=== PATIENT | female | born 1950 | race Caucasian/White ===

== ENCOUNTER 2020-09-04 14:18 | Inpatient (IN) | payer MEDICARE, OTHER, SELFPAY ==
[2020-09-04] VITALS (22 sets, daily range): BP systolic 54–162; BP diastolic 40–104; PULSE 72–153; RESP 18–30; TEMP 36.3–36.9; O2SAT 89–97; BMI 41.1; BMI 41.2
--- NOTE | 2020-09-04 14:38 | EKG12_ITS ---
Test Reason : PALPITATIONS/SOB Blood Pressure : / mmHG Vent. Rate : 141 BPM Atrial Rate : 315 BPM P-R Int : 000 ms QRS Dur : 076 ms QT Int : 246 ms P-R-T Axes : 263 043 077 degrees QTc Int : 376 ms Atrial flutter with variable A-V block Nonspecific ST abnormality Abnormal ECG Confirmed by ALLY HOLM, KASSIDY ([id number]), state editor ELLIOT LIMA ([id number]) on 09/11/2020 8:40:25 A M Referred By: YESENIA Confirmed By:LETICIA CANALES MD
--- NOTE | 2020-09-04 14:44 | ED.VIS.GEN ---
History of Present Illness Chief Complaint: Shortness of Breath Detail of Chief Complaint: Complications, dyspnea, OLSEN, orthopnea Informant: Patient Onset: Weeks - Onset 2 weeks ago while lying in bed Context: Sudden Onset Timing: Continuous Quality: Palpitations and respiratory symptoms Location: Cardiopulmonary Current Severity: Mild Maximum Severity: Moderate Worsened by: Activity Relieved by: Nothing Associated Symptoms: Previously documented Narrative: Patient is an elderly woman with history of atrial fibrillation/atrial flutter who is no longer on Xarelto. She was cardioverted in the past. Her paper spooler Dr. Gurvinder Mdaison. She states onset was 2 weeks ago while in bed. She did not come in because she was hoping that it would stop. She does report shortness of breath, dyspnea exertion orthopnea. She denies swelling of her feet or legs. She denies chest discomfort of any type. She denies headache, visual, ocular auditory symptoms. She denies rhinorrhea, congestion postnasal drainage sore throat. She denies abdominal pain, nausea, vomiting diarrhea. She denies black or maroon stool. She denies urologic symptoms. She denies neurologic symptoms. Prior similar symptoms: Yes Recent Illness/Hospitalization: No - Past Medical History (1) COPD (chronic obstructive pulmonary disease) with acute bronchitis Status: Acute (2) Tobacco dependence Status: Chronic Past Medical History - Allergies and Home Meds Allergies/Adverse Reactions: Allergies aspirin Allergy (Verified 09/04/20 14:21) Hives codeine Adverse Reaction (Verified 09/04/20 14:21) Nausea Primary Care Physician: Meena Garcia MD [Primary Care Provider] - Prior records reviewed: Yes Surgical History: - - Lumbar laminectomy Lives: Alone Smoking Status: Current every day smoker Alcohol: None Drugs: None - Family History Maternal Family History: Reports: Heart Disease - Cardiomyopathy Review of Systems General: Denies: Chills, Fever, Malaise, Sweats Eyes: Denies: Visual changes - bilaterally, Blurred Vision - bilaterally ENT: Denies: Rhinorrhea, Sore throat Cardiovascular: Reports: Palpitations, Heart racing. Denies: Chest pain Respiratory: Reports: Dyspnea, Dyspnea on exertion, Orthopnea. Denies: Cough, Sputum, Paroxysmal nocturnal dyspnea, -, - Gastrointestinal: Denies: Abdominal pain, Nausea, Vomiting, Diarrhea, Constipation, Melena, Hematochezia Musculoskeletal: Denies: Myalgias, Arthralgias, Neck pain, Back pain, Swelling, Extremity Pain, -, - Skin: Denies: Rash, Wounds Neurological: Denies: Headache, Weakness, Numbness Endocrine: Denies: Polyuria, Polydipsia Hematologic: Denies: Easy bruising, Easy bleeding Allergy: Denies: Uticaria, Swelling of the mouth Physical Exam Vital Signs/Narrative: Vital Signs Temp Pulse Resp BP Pulse Ox 09/04/20 14:42 96 09/04/20 14:19 97.3 F L 153 H 18 132/73 H 94 General: Well nourished, Well developed, Obese Head: Negative for: Normocephalic, Atraumatic Eyes: Perrl, EOMI. Negative for: Pale conjunctiva, Scleral icterus ENT: Moist mucous membranes, No rhinorrhea, TM's clear Neck: Supple, Nontender, No lymphadenopathy, No JVD Cardiovascular: No murmurs, Normal S1, Normal S2, Irregular, Tachycardia Respiratory: CTA bilaterally, Chest nontender, Diminished. Negative for: No distress Abdomen: Soft, Nontender, Nondistended, Normal bowel sounds Rectal: Deferred Back: Nontender, Normal Inspection Extremities: Nontender, No edema Skin: Normal color, No rash. Negative for: Cyanosis, Diaphoresis, Jaundice, No Trauma Neurological: Alert, Oriented x3, Cranial nerves II-XII grossly intact, Normal Strength, Normal Sensation Psychological: Normal affect Diagnostic/Tx/Re-eval Impressions Chest X-Ray 09/04/20 14:55 IMPRESSION: Mild degree of vascular congestion. Electronically Signed: Edwin Calvillo, at 15:13 EDT , Service support , 09/04/20 14:55 Chest 1 View (Portable) [RAD] Stat Laboratory Results 09/04/20 09/04/20 09/04/20 14:45 14:45 14:45 WBC 7.3 RBC 4.43 Hgb 13.2 Hct 43.5 MCV 98.2 MCH 29.8 MCHC 30.3 L RDW Std Deviation 56.6 H RDW Coeff of Stephanie 15.5 H Plt Count 292 MPV 9.8 Immature Gran % (Auto) 0.300 Neut % (Auto) 73.4 H Lymph % (Auto) 16.8 L [place] % (Auto) 7.2 Eos % (Auto) 1.7 Baso % (Auto) 0.6 Absolute Neuts (auto) 5.4 Absolute Lymphs (auto) 1.22 Nucleated RBC % 0 Differential Comment SCANNED Sodium 141 Potassium 4.3 Chloride 103 Carbon Dioxide 36.0 H Anion Gap 2 L BUN 19 H Creatinine 1.02 Estim Creat Clear Calc 46.22 Est GFR (MDRD) Af Amer 69 Est GFR (MDRD) Non-Af 57 L BUN/Creatinine Ratio 18.6 Glucose 109 H Calcium 9.8 Troponin I < 0.015 B-Natriuretic Peptide 175.5 H It was treated initially with Cardizem. Heart rate has decreased to the 130s. Additional dose of Cardizem was administered IV push and a drip was started. Hospitalist was paged. She did not receive diuretics since clinically she is not fluid overloaded. Suspect the heart failure is due to the A. fib with RVR. - EKG Initial EKG Interpretation: Atrial Flutter - Atrial flutter with variable AV block and a ventricular rate of 141. QS duration 76 ms. QT duration 246 ms. [place] is normal. There are an ossific ST-T wave changes in all likelihood due to heart rate. - Medical Decision Making With prior history of fibrillation will obtain appropriate blood work to assess electrolytes, H&H, troponin. EKG was obtained which confirmed patient is in atrial flutter/fib. There is no acute ischemic changes. Patient did receive Eliquis in the emergency department and IV Cardizem. She was not cardioverted since onset was 2 weeks ago. ED Disposition - Plan for ED Patient: Disposition: Acute Care Hospital [facility] Diagnosis: Atrial flutter with rapid ventricular response, Congestive heart failure (CHF) Referrals: Meena Garcia MD [Primary Care Provider] -
[2020-09-04] MEDS: dilTIAZem 25 MG/5 ML Vial 20 MG IV BOLUS (14:48)
--- NOTE | 2020-09-04 14:55 | RAD_ITS ---
STUDY: X-RAY CHEST REASON FOR EXAM: Female, 69 years old. dyspnea on exertion TECHNIQUE: Single AP portable view of the chest. COMPARISON: Comparison is made with prior examination dated 03/08/2015. FINDINGS: EKG electrodes are seen. Hyperinflation. Mild degree of vascular congestion. Scattered calcified granulomas. There is no demonstrated pleural abnormality. There is borderline cardiomegaly. Normal mediastinum and emily. Normal visualized pulmonary arteries. Normal visualized aortic arch and descending thoracic aorta. There are diffuse degenerative changes of the visualized thoracic spine. Normal visualized ribs, clavicles, and shoulders. There is no demonstrated abnormality of the visualized soft tissue structures of the upper abdomen. RAD/Chest 1 View (Portable) IMPRESSION: Mild degree of vascular congestion. Electronically Signed: Edwin Calvillo, at 15:13 EDT , Service support ,
[2020-09-04 15:07] LABS: Absolute Lymphocyte Count 1.22 X10^3/uL (0.83-4.51); Absolute Neutrophil Count 5.4 X10^3/uL (2.0-7.7); Basophil# 0.04 X10^3/uL; Basophil% 0.6 % (0-1); Eosinophil# 0.12 X10^3/uL; Eosinophils% 1.7 % (0-5); Hematocrit 43.5 % (37-47); Hemoglobin 13.2 g/dL (12.0-15.0); Lymphocyte # 1.22 X10^3/ul (4.0); Lymphocyte % 16.8 % (19-41); Mean Corp Hgb Conc 30.3 g/dL (32-36); Mean Corpuscular Hgb 29.8 pg (27.0-32.0); Mean Corpuscular Volume 98.2 fL (81-99); Mean Platelet Vol. 9.8 fl (6.2-12.0); Monocyte# 0.52 X10^3/uL; Monocyte% 7.2 % (0-10); NRBC Flagged by Analyzer 0 % (0-5); Neutrophil # 5.35 X10^3/uL (2.7-7.7); Neutrophil % 73.4 % (47-70); POSITIVE MORPHOLOGY YES; Platelet Count 292 K/mm3 (150-450); RBC Distribution Width CV 15.5 % (11.6-14.6); RBC Distribution Width SD 56.6 fl (35.1-43.9); Red Blood Count 4.43 M/mm3 (4.2-5.4); White Blood Count 7.3 K/mm3 (4.4-11.0)
[2020-09-04 15:15] LABS: Differential Indicated SCAN CRITERIA MET
[2020-09-04 15:29] LABS: Anion Gap 2 (5-15); BUN 19 mg/dL (7-18); BUN/Creat Ratio 18.6 RATIO (10-20); Calcium,Total 9.8 mg/dL (8.5-10.1); Chloride 103 mmol/L (98-107); Creatinine, Serum 1.02 mg/dL (0.55-1.02); EST Glomerular Filtration Rate 57 mL/min (>60); Est Glom Filt Rate - Afr Amer 69 mL/min (>60); Estimated Creatinine Clearance 46.22 ml/min; Glucose 109 mg/dL (74-106); Potassium 4.3 mmol/L (3.5-5.1); Sodium Level 141 mmol/L (136-145)
[2020-09-04 15:37] LABS: Differential Comment SCANNED
[2020-09-04] MEDS: APIXABAN 5 MG TABLET PO (15:37)
[2020-09-04 15:40] LABS: BNP,B-Type NATRIURETIC PEPTIDE 175.5 pg/mL (0-100)
--- NOTE | 2020-09-04 16:59 | PCM.HP.STD ---
<Lorena Sutton [employer] - Last Filed: 09/04/20 16:59> Problem List (1) Atrial flutter with rapid ventricular response Status: Acute (2) Congestive heart failure (CHF) Status: Acute (3) Asthma Status: Chronic (4) COPD (chronic obstructive pulmonary disease) with acute bronchitis Status: Chronic (5) Atrial flutter Status: Chronic (6) Tobacco dependence Status: Chronic (7) Type 2 diabetes mellitus Status: Chronic (8) Hyperlipidemia Status: Chronic History of Present Illness Date of Admission: 09/04/20 Chief Complaint: Palpitations, shortness of breath. The patient is a 69 year old F who presents to emergency room due to palpitations and shortness of breath. Patient reports this is been ongoing for 1-1/2 to 2 weeks intermittently however has worsened over the past week. Patient states she has a history of atrial flutter with cardioversion in 2014. To her knowledge, she has not had recurrence of a flutter since that time. She has not followed with cardiology as outpatient. She denies chest pain. Denies lower extremity swelling or weight gain. Patient states she has had significant stress in her life over the past 2 months. She also notes that she quit smoking 2 weeks ago following laser treatment. She has a past medical history of atrial flutter status post cardioversion, hypertension, hyperlipidemia, type 2 diabetes mellitus, CBP/asthma, tobacco dependence, obesity. Past Medical History Past Medical History (Chronic Problems): Chronic Problems Hyperlipidemia (Chronic) Type 2 diabetes mellitus (Chronic) Asthma (Chronic) COPD (chronic obstructive pulmonary disease) with acute bronchitis (Chronic) Atrial flutter (Chronic) Tobacco dependence (Chronic) Allergies aspirin Allergy (Verified 09/04/20 14:21) Hives codeine Adverse Reaction (Verified 09/04/20 14:21) Nausea Home Medications: Ambulatory Orders Medication Instructions Recorded Albuterol Inhaler [Ventolin Hfa] 1 - 2 puff INHALATION Q4H PRN PRN 03/10/15 #1 inhaler Ascorbic Acid [Fruit C-500] 1,000 mg PO DAILY 09/04/20 Atorvastatin Calcium [Lipitor] 20 mg PO QHS 09/04/20 Diltiazem CD [Cardizem CD] 240 mg PO DAILY 09/04/20 Lisinopril [Zestril] 5 mg PO DAILY 09/04/20 Metformin HCl [Metformin HCl ER] 500 mg PO DAILY 09/04/20 Surgical History: - - Lumbar laminectomy, hysterectomy Psychiatric History: No pertinent psych hx [employer]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 Denies: Chest Pain, Edema, Light Headedness, Syncope Respiratory: Reports: Shortness of Breath. Denies: Cough, Sputum production, Wheezing Gastrointestinal: Denies: Abdominal Pain, Nausea, Vomiting Genitourinary: Denies: Dysuria Musculoskeletal: Denies: Joint Pain, Joint Tenderness Skin: Denies: Rash, Wounds Neurological: Denies: Numbness, Tingling, Focal weakness Psychiatric: Denies: Anxiety, Depression, Homicidal Ideations, Suicidal Ideations Hematologic/ Lymphatic: Denies: Easy Bruising, Easy Bleeding VTE Information - Inpt Only VTE Present on Admission: No VTE Mechan Device Prophylaxis: None VTE Pharm Prophylaxis ordered?: Yes Patient Problems: Active and Suspected Problems Atrial flutter with rapid ventricular response (Acute) Congestive heart failure (CHF) (Acute) - Physical Exam Vitals/I&O's: Vital Signs Temp Pulse Resp BP Pulse Ox 97.3 F L 72 20 H 135/84 H 97 09/04/20 14:19 09/04/20 16:24 09/04/20 16:24 09/04/20 16:03 09/04/20 16:24 Oxygen Flow Rate (L/min) 2 Oxygen Delivery Method Room Air Weight: 240 lb Body Mass Index (BMI) 41.1 General: Alert, Oriented x3, Cooperative HEENT: Atraumatic, PERRLA, EOMI, Normocephalic Neck: Supple, No JVD, Negative Carotid Bruits Lungs: Diminished, Wheezes Cardiovascular: - - A flutter with RVR Abdomen: Bowel Sounds Present, Soft, Non Tender, Non-Distended, Obese Extremities: No clubbing, No cyanosis, No edema, Capillary Refill Less than 3 Seconds Skin: No rashes, No breakdown Musculoskeletal: No Tenderness to Palpation of Joints or Extremities Neurological: Cranial nerves II-XII grossly intact, Neuro grossly intact Psych/Mental Status: Normal Affect, Appropriate Laboratory Results 09/04/20 14:45: WBC 7.3, RBC 4.43, Hgb 13.2, Hct 43.5, MCV 98.2, MCH 29.8, MCHC 30.3 L, RDW Std Deviation 56.6 H, RDW Coeff of Stephanie 15.5 H, Plt Count 292, MPV 9.8, Immature Gran % (Auto) 0.300, Neut % (Auto) 73.4 H, Lymph % (Auto) 16.8 L, [place] % (Auto) 7.2, Eos % (Auto) 1.7, Baso % (Auto) 0.6, Absolute Neuts (auto) 5.4, Absolute Lymphs (auto) 1.22, Nucleated RBC % 0, Differential Comment SCANNED 09/04/20 14:45: Sodium 141, Potassium 4.3, Chloride 103, Carbon Dioxide 36.0 H, Anion Gap 2 L, BUN 19 H, Creatinine 1.02, Estim Creat Clear Calc 46.22, Est GFR (MDRD) Af Amer 69, Est GFR (MDRD) Non-Af 57 L, BUN/Creatinine Ratio 18.6, Glucose 109 H, Calcium 9.8, Troponin I < 0.015 09/04/20 14:45: B-Natriuretic Peptide 175.5 H Current Medications Diltiazem HCl 125 mg/ Dextrose 125 mls @ 5 mls/hr IV .Q25H KIAN; Protocol Assessment/Plan All Active Problems Atrial flutter with rapid ventricular response (Acute) Congestive heart failure (CHF) (Acute) 1. Atrial flutter with RVR-history of cardioversion February 2015. Cardizem drip initiated in ER. Previous notes report difficult rate control. Consult cardiology. Therapeutic Lovenox. Check TSH, mag. Obtain echocardiogram. Trend enzymes. 2. Mild acute CHF-secondary to #1. Chest x-ray with mild degree of vascular congestion. BNP 175. IV Lasix 20 mg twice daily. Obtain echo as noted above. 3. Hypertension-stable, continue lisinopril. 4. Hyperlipidemia-continue statin. 5. Type 2 diabetes mellitus-hold metformin. Check hemoglobin A1c. Accu-Cheks with sliding scale insulin. 6. COPD/asthma-no exacerbation. 7. Tobacco dependence-recently quit 2 weeks ago following laser treatment. Encouraged continued cessation. 8. Obesity-encouraged diet and lifestyle modifications. DVT prophylaxis-therapeutic Lovenox This patient was seen by RADHA Booth under the supervision of Dr. Amado. <AneudyLito E - Last Filed: 09/04/20 19:14> History of Present Illness The patient is a 69 year old F [] Past Medical History Allergies aspirin Allergy (Verified 09/04/20 14:21) Hives codeine Adverse Reaction (Verified 09/04/20 14:21) Nausea - Physical Exam Vitals/I&O's: Vital Signs Temp Pulse Resp BP Pulse Ox 97.8 F 96 22 H 110/58 L 92 09/04/20 18:00 09/04/20 19:01 09/04/20 19:01 09/04/20 19:01 09/04/20 19:01 Oxygen Flow Rate (L/min) 2 Oxygen Delivery Method Nasal Cannula Weight: 239 lb 13.807 oz Body Mass Index (BMI) 41.1 Intake and Output for Last 24 Hours 09/02/20 09/03/20 09/04/20 23:59 23:59 23:59 Intake Total 14. / 14.09 Balance 14. / 14.09 Laboratory Results 09/04/20 14:45: WBC 7.3, RBC 4.43, Hgb 13.2, Hct 43.5, MCV 98.2, MCH 29.8, MCHC 30.3 L, RDW Std Deviation 56.6 H, RDW Coeff of Stephanie 15.5 H, Plt Count 292, MPV 9.8, Immature Gran % (Auto) 0.300, Neut % (Auto) 73.4 H, Lymph % (Auto) 16.8 L, [place] % (Auto) 7.2, Eos % (Auto) 1.7, Baso % (Auto) 0.6, Absolute Neuts (auto) 5.4, Absolute Lymphs (auto) 1.22, Nucleated RBC % 0, Differential Comment SCANNED 09/04/20 14:45: Sodium 141, Potassium 4.3, Chloride 103, Carbon Dioxide 36.0 H, Anion Gap 2 L, BUN 19 H, Creatinine 1.02, Estim Creat Clear Calc 46.22, Est GFR (MDRD) Af Amer 69, Est GFR (MDRD) Non-Af 57 L, BUN/Creatinine Ratio 18.6, Glucose 109 H, Calcium 9.8, Troponin I < 0.015 09/04/20 14:45: B-Natriuretic Peptide 175.5 H 09/04/20 18:37: PT Pending, INR Pending 09/04/20 18:37: Magnesium Pending, Troponin I Pending, TSH Pending 09/04/20 18:37: Hemoglobin A1c Pending Current Medications Acetaminophen (Tylenol) 650 mg PO Q6H PRN PRN PRN Reason: Pain Score 1-10/Temp > 100.7 F Atorvastatin Calcium (Lipitor) 20 mg PO QHS KIAN Diltiazem HCl (Cardizem Cd) 240 mg PO DAILY [facility] Enoxaparin Sodium (Lovenox) 100 mg SC Q12@0600,1800 [facility] Last Admin: 09/04/20 18:56 Dose: 100 mg Documented by: Furosemide (Lasix) 20 mg IV BID@1000,1800 [facility] Last Admin: 09/04/20 18:56 Dose: 20 mg Documented by: Diltiazem HCl 125 mg/ Dextrose 125 mls @ 5 mls/hr IV .Q25H KIAN; Protocol Last Titration: 09/04/20 19:01 Dose: 10 mg/hr, 10 mls/hr Documented by: Insulin Human Lispro (Humalog Kwikpen (Bkc)) 0 unit SC ACHS [facility]; Protocol Lisinopril (Zestril) 5 mg PO DAILY [facility] Ondansetron HCl (Zofran) 4 mg IV Q8H PRN PRN PRN Reason: NAUSEA/VOMITING Senna/Docusate Sodium (Senokot-S, Shaye-Colace) 2 tablet PO BID PRN PRN PRN Reason: Constipation Sodium Chloride () 10 - 40 ml IV UD PRN PRN Reason: SALINE FLUSH Zolpidem Tartrate (Ambien (Generic)) 5 mg PO QHS PRN PRN PRN Reason: INSOMNIA Assessment/Plan Hospitalist note: I am seeing this patient in conjunction with Lorena Sutton. I independently seen and examined the patient. History and physical, laboratory data and imaging studies reviewed and I concur with above admission and treatment plan. Patient presented to the emergency room because of palpitation and shortness of breath. Her symptoms started in the last couple of weeks, has been intermittent, started with palpitation which is intermittent, has been getting worse over the past week, associated with exertional shortness of breath as well as occasional dizziness and without aggravating or relieving factors. She denies syncope or presyncope. She denies fever chills. History of atrial flutter back on 2014 status post cardioversion and she has been stable since then. In the emergency department, initial heart rate was in the 150s, received IV Cardizem bolus and heart rate keep fluctuating from 90s up to 150s. Possible stable, was afebrile, pulse ox was 94% on 2 L of oxygen. EKG revealed atrial flutter with RVR, no acute skin changes. Heart rate has been in the 150s on EKG. Troponin was negative. BNP was slightly rated at 175. Chest x-ray revealed minimal bilateral pulmonary vascular congestion. She is being admitted for atrial flutter with RVR and mild acute CHF. - Physical Exam General: Alert, Oriented x3, Cooperative, minimally short of breath. HEENT: Atraumatic, PERRLA, EOMI. Neck: Supple, No JVD, Negative Carotid Bruits, Trachea Midline, Thyroid Normal. Lungs: Decreased breath sounds at the bases, faint basilar crackles,No rhonchi, No wheeze. Cardiovascular: irregular rate and rhythm, Normal S1, Normal S2, PMI Normal, tachycardia. Abdomen: Bowel Sounds Present, Soft, Non Tender, Non-Distended, No Hepato-splenomegaly. Extremities: No clubbing, No cyanosis, No edema Skin: No rashes, No breakdown Neurological: Cranial nerves are intact, neuro grossly intact. Assessment and plan: #1 atrial flutter with RVR: In context of history of atrial flutter back in 2014, status post cardioversion. EKG reviewed, troponins negative chest x-ray reviewed. Patient received 1 dose of Eliquis in the ED. Plan: Mid to PCU, cardiac monitoring, serial cardiac enzymes, check TSH, serum magnesium, 2D echocardiogram, cardiology consult, continue IV Cardizem drip, start therapeutic Lovenox twice daily, repeat CBC and BMP tomorrow morning. #2 acute mild CHF: Due to a flutter with RVR. Chest x-ray reviewed. BNP slightly related. Plan: IV diuresis with Lasix, 2D echocardiogram, continue lisinopril. #3 other chronic medical problems: Stable, continue current medications as above. This note was generated with [employer] dictation software. It may contain incorrect words, spelling, and punctuation that were not noted in checking the note before signing. Inpatient E&M: [id number] Init Hosp L3
[2020-09-04] MEDS: dilTIAZem 25 MG/5 ML Vial IV BOLUS (17:01)
[2020-09-04] MEDS: Enoxaparin 100 MG/ML Syringe SC (18:56)
[2020-09-04] MEDS: Furosemide 20 MG/2 ML VIAL IV (18:56)
[2020-09-04 19:10] LABS: International Normalized Ratio 1.1; Prothrombin Time (Protime)PT. 13.8 SECONDS (11.7-14.9)
[2020-09-04 19:16] LABS: Hemoglobin A1c 5.8 % (3.8-5.6)
[2020-09-04 19:17] LABS: Magnesium 2.1 mg/dL (1.6-2.6)
[2020-09-04] MEDS: Atorvastatin Calcium 20 MG Tablet PO (21:16)
[2020-09-04 21:25] LABS: Bedside Glucose 141 mg/dL (70-110)
[2020-09-04] MEDS: Albuterol 2.5 MG/3 ML VIAL.NEB. INHALATION (21:45)
[2020-09-05] VITALS (46 sets, daily range): BP systolic 99–152; BP diastolic 51–122; PULSE 66–128; RESP 16–28; TEMP 36.4–36.9; O2SAT 86–99
[2020-09-05] MEDS: Enoxaparin 100 MG/ML Syringe SC (05:02)
[2020-09-05 06:54] LABS: Absolute Lymphocyte Count 1.32 X10^3/uL (0.83-4.51); Basophil# 0.03 X10^3/uL; Basophil% 0.6 % (0-1); Eosinophil# 0.11 X10^3/uL; Eosinophils% 2.2 % (0-5); Hemoglobin 12.8 g/dL (12.0-15.0); Lymphocyte # 1.32 X10^3/ul (4.0); Mean Corp Hgb Conc 29.8 g/dL (32-36); Mean Corpuscular Volume 100.7 fL (81-99); Mean Platelet Vol. 10.1 fl (6.2-12.0); Monocyte# 0.42 X10^3/uL; Monocyte% 8.6 % (0-10); NRBC Flagged by Analyzer 0 % (0-5); Neutrophil % 61.4 % (47-70); Platelet Count 253 K/mm3 (150-450); RBC Distribution Width CV 15.7 % (11.6-14.6); RBC Distribution Width SD 58.3 fl (35.1-43.9); Red Blood Count 4.27 M/mm3 (4.2-5.4); White Blood Count 4.9 K/mm3 (4.4-11.0)
[2020-09-05 07:35] LABS: Anion Gap 1 (5-15); BUN 23 mg/dL (7-18); BUN/Creat Ratio 23.4 RATIO (10-20); Calcium,Total 9.3 mg/dL (8.5-10.1); Chloride 103 mmol/L (98-107); Creatinine, Serum 0.98 mg/dL (0.55-1.02); EST Glomerular Filtration Rate 60 mL/min (>60); Est Glom Filt Rate - Afr Amer 72 mL/min (>60); Glucose 103 mg/dL (74-106); Potassium 4.3 mmol/L (3.5-5.1); Sodium Level 140 mmol/L (136-145)
[2020-09-05 07:42] LABS: Bedside Glucose 102 mg/dL (70-110)
[2020-09-05 08:28] LABS: Free T3 2.4 pg/mL (2.18-3.98); T4 Free Direct 0.83 ng/dL (0.76-1.46)
[2020-09-05] MEDS: Lisinopril 5 MG Tablet PO (09:09)
[2020-09-05] MEDS: Furosemide 40 MG/4 ML Vial IV ×2 (09:09→18:22)
[2020-09-05] MEDS: dilTIAZem CD 240 MG Capsule PO (09:09)
[2020-09-05] MEDS: 0.9% Saline Lock 10 ML Syringe IV ×5 (09:09→20:41)
--- NOTE | 2020-09-05 10:15 | CASEMGMT ---
RN BENNY Face to Face with patient for initial transition planning/care coordination assessment. RN CM introduced self and role at [facility]. Patient lying in bed, alert and oriented. Patient willing to participate in assessment and is able to answer all questions appropriately. Care providers, pharmacy, and demographics verified. Patient wishes to discharge home, denies need for home health at this time. Patient states she has no further needs or concerns at this time. CM to follow for discharge planning needs that may arise. 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 Patient states she is independent at home. Transportation: self/sisters/ DME/HHC: Patient states she has nebulizer and oxygen with portability at home 2lpm at and ambulation through [employer]. Will monitor if patient requires additional oxygen at discharge. Disposition Plan: Patient to discharge home with family support and follow-up plans in place. Emma DOCKERY, RN, CM
[2020-09-05 11:30] LABS: Bedside Glucose 149 mg/dL (70-110)
--- NOTE | 2020-09-05 12:14 | PN_ITS ---
<HermanLorena INVESTIGATION OFFICER - Last Filed: 09/05/20 12:32> Patient Problems: Active and Suspected Problems Atrial flutter with rapid ventricular response (Acute) Congestive heart failure (CHF) (Acute) Subjective: Patient seen and examined. Reports breathing and palpitations are improved. Denies chest pain. Wheezing on exam. Initiated on IV steroids. - Physical Exam Vitals/I&O's: Vital Signs Temp Pulse Resp BP Pulse Ox 97.6 F L 128 H 21 H 114/61 97 09/05/20 12:00 09/05/20 12:05 09/05/20 12:00 09/05/20 12:00 09/05/20 12:00 Oxygen Flow Rate (L/min) 5 Oxygen Delivery Method Nasal Cannula Weight: 240 lb 11.916 oz Body Mass Index (BMI) 41.1 Intake and Output for Last 24 Hours 09/03/20 09/04/20 09/05/20 23:59 23:59 23:59 Intake Total 253.92 / 263.92 556.00 / 556.00 Output Total 0 / 0 Balance 253.92 / 263.92 556.00 / 556.00 General: Alert, Oriented x3, Cooperative HEENT: Atraumatic, PERRLA, EOMI, Normocephalic Neck: Supple, No JVD, Negative Carotid Bruits Lungs: Clear to auscultation, Normal air movement Cardiovascular: - - a. flutter, RVR Abdomen: Bowel Sounds Present, Soft, Non Tender Extremities: No clubbing, No cyanosis, No edema, Capillary Refill Less than 3 Seconds Skin: No rashes, No breakdown Musculoskeletal: No Tenderness to Palpation of Joints or Extremities Neurological: Cranial nerves II-XII grossly intact, Neuro grossly intact Psych/Mental Status: Normal Affect, Appropriate Laboratory Results 09/04/20 14:45: WBC 7.3, RBC 4.43, Hgb 13.2, Hct 43.5, MCV 98.2, MCH 29.8, MCHC 30.3 L, RDW Std Deviation 56.6 H, RDW Coeff of Stephanie 15.5 H, Plt Count 292, MPV 9.8, Immature Gran % (Auto) 0.300, Neut % (Auto) 73.4 H, Lymph % (Auto) 16.8 L, Gallia % (Auto) 7.2, Eos % (Auto) 1.7, Baso % (Auto) 0.6, Absolute Neuts (auto) 5.4, Absolute Lymphs (auto) 1.22, Nucleated RBC % 0, Differential Comment SCANNED 09/04/20 14:45: Sodium 141, Potassium 4.3, Chloride 103, Carbon Dioxide 36.0 H, Anion Gap 2 L, BUN 19 H, Creatinine 1.02, Estim Creat Clear Calc 46.22, Est GFR (MDRD) Af Amer 69, Est GFR (MDRD) Non-Af 57 L, BUN/Creatinine Ratio 18.6, Glu cose 109 H, Calcium 9.8, Troponin I < 0.015 09/04/20 14:45: B-Natriuretic Peptide 175.5 H 09/04/20 18:37: PT 13.8, INR 1.1 09/04/20 18:37: Magnesium 2.1, Troponin I < 0.015, TSH 0.30 L 09/04/20 18:37: Hemoglobin A1c 5.8 H 09/04/20 21:22: POC Glucose 141 H 09/04/20 21:31: Troponin I < 0.015 09/05/20 05:55: WBC 4.9, RBC 4.27, Hgb 12.8, Hct 43.0, MCV 100.7 H, MCH 30.0, MCHC 29.8 L, RDW Std Deviation 58.3 H, RDW Coeff of Stephanie 15.7 H, Plt Count 253, MPV 10.1, Immature Gran % (Auto) 0.200, Neut % (Auto) 61.4, Lymph % (Auto) 27.0, Gallia % (Auto) 8.6, Eos % (Auto) 2.2, Baso % (Auto) 0.6, Absolute Neuts (auto) 3.0, Absolute Lymphs (auto) 1.32, Nucleated RBC % 0 09/05/20 05:55: Sodium 140, Potassium 4.3, Chloride 103, Carbon Dioxide 36.0 H, Anion Gap 1 L, BUN 23 H, Creatinine 0.98, Estim Creat Clear Calc 48.10, Est GFR (MDRD) Af Amer 72, Est GFR (MDRD) Non-Af 60, BUN/Creatinine Ratio 23.4 H, Glucose 103, Calcium 9.3 09/05/20 05:55: Free T4 0.83, Free T3 pg/dL 2.4 09/05/20 06:57: POC Glucose 102 09/05/20 10:54: POC Glucose 149 H Current Medications Acetaminophen (Tylenol) 650 mg PO Q6H PRN PRN PRN Reason: Pain Score 1-10/Temp > 100.7 F Albuterol Sulfate (Ventolin Aerosols) 2.5 mg INHALATION Q4H.RT PRN PRN Reason: SOB &/OR WHEEZING Last Admin: 09/04/20 21:45 Dose: 2.5 mg Documented by: Atorvastatin Calcium (Lipitor) 20 mg PO QHS [facility] Last Admin: 09/04/20 21:16 Dose: 20 mg Documented by: Diltiazem HCl (Cardizem Cd) 240 mg PO DAILY [facility] Last Admin: 09/05/20 09:09 Dose: 240 mg Documented by: Enoxaparin Sodium (Lovenox) 100 mg SC Q12@0600,1800 [facility] Last Admin: 09/05/20 05:02 Dose: 100 mg Documented by: Furosemide (Furosemide 40 Mg/4 Ml Vial) 40 mg IV BID@1000,1800 [facility] Last Admin: 09/05/20 09:09 Dose: 40 mg Documented by: Diltiazem HCl 125 mg/ Dextrose 125 mls @ 5 mls/hr IV .Q25H [facility]; Protocol Last Titration: 09/05/20 12:12 Dose: Infused Documented by: Insulin Human Lispro (Humalog Kwikpen (Bkc)) 0 unit SC ACHS [facility]; Protocol Last Admin: 09/05/20 10:56 Dose: Not Given Documented by: Lisinopril (Zestril) 5 mg PO DAILY [facility] Last Admin: 09/05/20 09:09 Dose: 5 mg Documented by: Methylprednisolone (Methylprednisolone 40 Mg/Ml Vial) 40 mg IV Q8H [facility] Last Admin: 09/05/20 11:56 Dose: 40 mg Documented by: Ondansetron HCl (Zofran) 4 mg IV Q8H PRN PRN PRN Reason: NAUSEA/VOMITING Senna/Docusate Sodium (Senokot-S, Shaye-Colace) 2 tablet PO BID PRN PRN PRN Reason: Constipation Sodium Chloride () 10 - 40 ml IV UD PRN PRN Reason: SALINE FLUSH Last Admin: 09/05/20 11:56 Dose: 10 ml Documented by: Zolpidem Tartrate (Ambien (Generic)) 5 mg PO QHS PRN PRN PRN Reason: INSOMNIA Medical Necessity - Tobacco Use Smoking Status: Former smoker Tobacco Use: Cigarettes Assessment/Plan All Active Problems Atrial flutter with rapid ventricular response (Acute) Congestive heart failure (CHF) (Acute) 1. Atrial flutter with RVR-history of cardioversion February 2015. Continue Cardizem drip. Cardiology consult. Therapeutic Lovenox. TSH, mag normal. Echocardiogram pending. 2. Mild acute CHF-secondary to #1. Chest x-ray with mild degree of vascular congestion. BNP 175. IV Lasix 40 mg twice daily. Echo ordered as noted above. 3. Chronic COPD/asthma with exacerbation-significant wheezing on assessment. Pulmonary medicine consulted to establish for outpatient follow-up. IV Solu- Medrol. DuoNeb aerosols. 4. Acute hypoxic respiratory insufficiency-secondary to #2/#3-treatment per above. Continue supplement oxygen to maintain O2 sat above 90%. Walking pulse ox prior to discharge. 5. Hypertension-stable, continue lisinopril. 6. Hyperlipidemia-continue statin. 7. Type 2 diabetes mellitus-hold metformin. Hemoglobin A1c 5.8%. Accu-Cheks with sliding scale insulin. 8. Tobacco dependence-recently quit 2 weeks ago following laser treatment. En couraged continued cessation. 9. Obesity-encouraged diet and lifestyle modifications. DVT prophylaxis-therapeutic Lovenox This patient was seen by RADHA Booth under the supervision of Dr. Delgadillo. <Beata Delgadillo - Last Filed: 09/05/20 12:49> - Physical Exam Vitals/I&O's: Vital Signs Temp Pulse Resp BP Pulse Ox 97.6 F L 128 H 21 H 114/61 97 09/05/20 12:00 09/05/20 12:05 09/05/20 12:00 09/05/20 12:00 09/05/20 12:00 Oxygen Flow Rate (L/min) 5 Oxygen Delivery Method Nasal Cannula Weight: 109.2 kg Body Mass Index (BMI) 41.1 Intake and Output for Last 24 Hours 09/03/20 09/04/20 09/05/20 23:59 23:59 23:59 Intake Total 253.92 / 263.92 556.00 / 556.00 Output Total 0 / 0 Balance 253.92 / 263.92 556.00 / 556.00 Laboratory Results 09/04/20 14:45: WBC 7.3, RBC 4.43, Hgb 13.2, Hct 43.5, MCV 98.2, MCH 29.8, MCHC 30.3 L, RDW Std Deviation 56.6 H, RDW Coeff of Stephanie 15.5 H, Plt Count 292, MPV 9.8, Immature Gran % (Auto) 0.300, Neut % (Auto) 73.4 H, Lymph % (Auto) 16.8 L, Gallia % (Auto) 7.2, Eos % (Auto) 1.7, Baso % (Auto) 0.6, Absolute Neuts (auto) 5.4, Absolute Lymphs (auto) 1.22, Nucleated RBC % 0, Differential Comment SCANNED 09/04/20 14:45: Sodium 141, Potassium 4.3, Chloride 103, Carbon Dioxide 36.0 H, Anion Gap 2 L, BUN 19 H, Creatinine 1.02, Estim Creat Clear Calc 46.22, Est GFR (MDRD) Af Amer 69, Est GFR (MDRD) Non-Af 57 L, BUN/Creatinine Ratio 18.6, Glucose 109 H, Calcium 9.8, Troponin I < 0.015 09/04/20 14:45: B-Natriuretic Peptide 175.5 H 09/04/20 18:37: PT 13.8, INR 1.1 09/04/20 18:37: Magnesium 2.1, Troponin I < 0.015, TSH 0.30 L 09/04/20 18:37: Hemoglobin A1c 5.8 H 09/04/20 21:22: POC Glucose 141 H 09/04/20 21:31: Troponin I < 0.015 09/05/20 05:55: WBC 4.9, RBC 4.27, Hgb 12.8, Hct 43.0, MCV 100.7 H, MCH 30.0, MCHC 29.8 L, RDW Std Deviation 58.3 H, RDW Coeff of Stephanie 15.7 H, Plt Count 253, MPV 10.1, Immature Gran % (Auto) 0.200, Neut % (Auto) 61.4, Lymph % (Auto) 27.0, Gallia % (Auto) 8.6, Eos % (Auto) 2.2, Baso % (Auto) 0.6, Absolute Neuts (auto) 3.0, Absolute Lymphs (auto) 1.32, Nucleated RBC % 0 09/05/20 05:55: Sodium 140, Potassium 4.3, Chloride 103, Carbon Dioxide 36.0 H, Anion Gap 1 L, BUN 23 H, Creatinine 0.98, Estim Creat Clear Calc 48.10, Est GFR (MDRD) Af Amer 72, Est GFR (MDRD) Non-Af 60, BUN/Creatinine Ratio 23.4 H, Glucose 103, Calcium 9.3 09/05/20 05:55: Free T4 0.83, Free T3 pg/dL 2.4 09/05/20 06:57: POC Glucose 102 09/05/20 10:54: POC Glucose 149 H Current Medications Acetaminophen (Tylenol) 650 mg PO Q6H PRN PRN PRN Reason: Pain Score 1-10/Temp > 100.7 F Albuterol Sulfate (Ventolin Aerosols) 2.5 mg INHALATION Q4H.RT PRN PRN Reason: SOB &/OR WHEEZING Last Admin: 09/04/20 21:45 Dose: 2.5 mg Documented by: Albuterol/Ipratropium (Ipratropium/Albuterol Sulfate 3 Ml Ampul.Neb) 3 ml INHALATION Q4HWA.RT IKAN Atorvastatin Calcium (Lipitor) 20 mg PO QHS [facility] Last Admin: 09/04/20 21:16 Dose: 20 mg Documented by: Diltiazem HCl (Cardizem Cd) 240 mg PO DAILY [facility] Last Admin: 09/05/20 09:09 Dose: 240 mg Documented by: Enoxaparin Sodium (Lovenox) 100 mg SC Q12@0600,1800 [facility] Last Admin: 09/05/20 05:02 Dose: 100 mg Documented by: Furosemide (Furosemide 40 Mg/4 Ml Vial) 40 mg IV BID@1000,1800 [facility] Last Admin: 09/05/20 09:09 Dose: 40 mg Documented by: Diltiazem HCl 125 mg/ Dextrose 125 mls @ 5 mls/hr IV .Q25H [facility]; Protocol Last Admin: 09/05/20 12:13 Dose: 15 mg/hr, 15 mls/hr Documented by: Insulin Human Lispro (Humalog Kwikpen (Bkc)) 0 unit SC ACHS [facility]; Protocol Last Admin: 09/05/20 10:56 Dose: Not Given Documented by: Lisinopril (Zestril) 5 mg PO DAILY [facility] Last Admin: 09/05/20 09:09 Dose: 5 mg Documented by: Methylprednisolone (Methylprednisolone 40 Mg/Ml Vial) 40 mg IV Q8H [facility] Last Admin: 09/05/20 11:56 Dose: 40 mg Documented by: Ondansetron HCl (Zofran) 4 mg IV Q8H PRN PRN PRN Reason: NAUSEA/VOMITING Senna/Docusate Sodium (Senokot-S, Shaye-Colace) 2 tablet PO BID PRN PRN PRN Reason: Constipation Sodium Chloride () 10 - 40 ml IV UD PRN PRN Reason: SALINE FLUSH Last Admin: 09/05/20 11:56 Dose: 10 ml Documented by: Zolpidem Tartrate (Ambien (Generic)) 5 mg PO QHS PRN PRN PRN Reason: INSOMNIA Assessment/Plan This patient was seen in conjunction with Lorena Sutton INVESTIGATION OFFICER. I have independently interviewed and examined the patient and reviewed pertinent historical, laboratory, and other data. Please refer to her note for patient's presentation, findings, and recommendations. Patient was seen and examined. She is short of breath on ambulation. Heart rate is uncontrolled. Fluctuating a lot. Patient stated that she is usually on 2 L of oxygen at rest and 5 L of oxygen on ambulation. Denied any chest pain or dizziness or palpitations. She stated she feels improved compared to when she came in. No acute events overnight. She has no scrip clerk. She lives in [place]. She is interested in getting a new PCP as well as possibly establishing with a scrip clerk here in [place]. She stated that her issue is with transport from [place] to [place] and is hoping that her appointments will not be every 3 months. Vitals were reviewed -stable Physical Exam: Gen: Mildly dyspneic, not pale, not jaundiced, alert oriented x3, on 5 L of oxygen CVS:HS I +II, regular, no murmurs RESP: Decreased air entry, audible and expiratory wheezes GI: BS present and normal, nontender, no palpable organs EXT: Bilateral pedal edema +1 Labs reviewed: ASSESSMENT: 1. A flutter with RVR 2. Acute CHF exacerbation, 2D echo pending 3. Acute COPD exacerbation 4. Hypertension 5. Type II DM 6. Nicotine dependence, advised to quit 7. Morbid obesity Meds reviewed Plan: Continue with Cardizem drip as well as Cardizem bridging Await cardiology evaluation Continue with Lasix 40 mg IV twice daily Start IV Solu-Medrol Pulmonology consult Discontinue albuterol and DuoNeb account of tachycardia Continue on ipratropium scheduled inhalation Increase insulin sliding scale to medium dose scale to account for blood glucose exacerbations whilst on steroids Inpatient E&M: 12460 [facility]
--- NOTE | 2020-09-05 15:10 | PCM.CONS.PUL ---
Problem List (1) Hyperlipidemia Status: Chronic (2) Type 2 diabetes mellitus Status: Chronic (3) Atrial flutter with rapid ventricular response Status: Acute (4) Congestive heart failure (CHF) Status: Acute (5) Asthma Status: Chronic (6) COPD (chronic obstructive pulmonary disease) with acute bronchitis Status: Chronic (7) Atrial flutter Status: Chronic (8) Tobacco dependence Status: Chronic Reason for Consult Date of Consultation: 09/05/20 Reason for Consultation: Hypoxia History of Present Illness: The patient is a 69 year old F, with past medical history listed below, who presented [facility] on 09/04/2020 secondary to progressive shortness of breath. Patient does have a history of A. fib/flutter that was treated with Xarelto in the past, but had a cardioversion in 2014. Patient states that approximately 2 weeks ago she woke up from sleep feeling short of breath and has been that way since I came here. Patient had not reported any lower extremity swelling or chest discomfort. No headache or focal neurologic deficits have been noted. Patient had noted a cough productive of clear to white sputum, but states this was typical for her. Patient not reported any nausea, vomiting, diarrhea, melena or hematochezia. No neurologic symptoms are reported. In the ER, patient was noted to be tachycardic at 153 bpm and chest x-ray showed a mild degree of vascular congestion. Laboratory work-up was relatively unremarkable with a WBC count of 7.3 and a hemoglobin of 13.2. Patient did have an elevated bicarbonate at 36 with a creatinine of 1. Troponin was negative and BNP was slightly elevated at 175. Patient was initially treated with Cardizem with improvement in heart rate. EKG confirmed a flutter with a 2-1 block. Patient was given Eliquis and started on an IV infusion and admitted to the hospital. Patient has received diuretic therapy and feels subjectively improved since admission. Patient remains on a Cardizem drip with marginal control with heart rates in the 90s to low 100s. Patient feels that her cough has improved. Patient does not report any lower extremity edema. Patient does state that she has been very stressed over the last 2 to 3 months for personal reasons. Patient states that she wakes up at night gasping for breath and hearing my heartbeat in my ear. Patient states she has been admitted previously at an outside facility and thought that CPAP made a big difference. Patient does not have a diagnosis of sleep apnea and is never had a sleep apnea test before to her knowledge. Patient does report that she has had a cardioversion previously for A. fib, but thought it had resolved. Patient does reportedly snore at baseline. Patient does not use bronchodilators at baseline extensively. Patient states she has had a spirometry in the past, but is unaware of the results. She thinks this was done at [facility]. Patient does report that she is been on oxygen in the past. Patient states she was admitted to the hospital and sent home and my saturations are typically in the low 90s on 2 L. Review of systems otherwise negative from a constitutional, HEENT, respiratory, cardiovascular, GI, genitourinary, musculoskeletal, skin, neurologic, psychiatric and hematologic system unless stated above. Past Medical History Past Medical History (Chronic Problems): Chronic Problems Hyperlipidemia (Chronic) Type 2 diabetes mellitus (Chronic) Asthma (Chronic) COPD (chronic obstructive pulmonary disease) with acute bronchitis (Chronic) Atrial flutter (Chronic) Tobacco dependence (Chronic) Allergies aspirin Allergy (Verified 09/04/20 14:21) Hives codeine Adverse Reaction (Verified 09/04/20 14:21) Nausea Home Medications: Ambulatory Orders Medication Instructions Recorded Albuterol Inhaler [Ventolin Hfa] 1 - 2 puff INHALATION Q4H PRN PRN 03/10/15 #1 inhaler Ascorbic Acid [Fruit C-500] 1,000 mg PO DAILY 09/04/20 Atorvastatin Calcium [Lipitor] 20 mg PO QHS 09/04/20 Diltiazem CD [Cardizem CD] 240 mg PO DAILY 09/04/20 Lisinopril [Zestril] 5 mg PO DAILY 09/04/20 Metformin HCl [Metformin HCl ER] 500 mg PO DAILY 09/04/20 Surgical History: - - Lumbar laminectomy, hysterectomy Psychiatric History: No 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 Patient does not have an extensive imaging history, but chest x-ray does show increased congestion with cephalization on presentation. Echocardiogram shows preserved ejection fraction. Patient does have left atrial enlargement and elevated pulmonary artery pressures. - Physical Exam Vitals/I&O's: Vital Signs Temp Pulse Resp BP Pulse Ox 36.4 C L 91 18 113/63 92 09/05/20 12:00 09/05/20 14:00 09/05/20 14:00 09/05/20 14:00 09/05/20 14:00 Oxygen Flow Rate (L/min) 5 Oxygen Delivery Method Nasal Cannula Weight: 109.2 kg Body Mass Index (BMI) 41.1 Intake and Output for Last 24 Hours 09/03/20 09/04/20 09/05/20 23:59 23:59 23:59 Intake Total 253.92 / 263.92 582.75 / 582.75 Output Total 0 / 0 Balance 253.92 / 263.92 582.75 / 582.75 General: Alert, Oriented x3, Cooperative, No apparent distress, Well developed, Well nourished, - - Morbidly obese. Speaking in full sentences. HEENT: Atraumatic, PERRLA, EOMI, Normocephalic, - - No scleral icterus or injection noted Oral: Moist Mucosa, No Gingival or Mucosal Lesions/ Ulcerations, - - Crowded posterior pharynx. Neck: Supple, No Nodes, Trachea Midline, - - JVD difficult to assess secondary to body habitus. Lungs: No rhonchi, No rales, Diminished, Wheezes, - - Symmetric expansion. Cardiovascular: Normal S1, Normal S2, No murmurs, Irregular Rate, No rub noted, No Gallop, - - A flutter noted on telemetry Abdomen: Bowel Sounds Present, Soft, Non Tender, Non-Distended, Obese Extremities: No cyanosis, No edema, Capillary Refill Less than 3 Seconds, Clubbing Skin: No rashes, No breakdown Musculoskeletal: No Tenderness to Palpation of Joints or Extremities Lymphatic: No Cervical, Supraclavicular, or Inguinal Adenopathy Neurological: Cranial nerves II-XII grossly intact, Neuro grossly intact, Motor Exam 5/5 strength throughout Psych/Mental Status: Alert and oriented to time, place, person, mood and affect Laboratory Results 09/04/20 14:45: WBC 7.3, RBC 4.43, Hgb 13.2, Hct 43.5, MCV 98.2, MCH 29.8, MCHC 30.3 L, RDW Std Deviation 56.6 H, RDW Coeff of Stephanie 15.5 H, Plt Count 292, MPV 9.8, Immature Gran % (Auto) 0.300, Neut % (Auto) 73.4 H, Lymph % (Auto) 16.8 L, [place] % (Auto) 7.2, Eos % (Auto) 1.7, Baso % (Auto) 0.6, Absolute Neuts (auto) 5.4, Absolute Lymphs (auto) 1.22, Nucleated RBC % 0, Differential Comment SCANNED 09/04/20 14:45: Sodium 141, Potassium 4.3, Chloride 103, Carbon Dioxide 36.0 H, Anion Gap 2 L, BUN 19 H, Creatinine 1.02, Estim Creat Clear Calc 46.22, Est GFR (MDRD) Af Amer 69, Est GFR (MDRD) Non-Af 57 L, BUN/Creatinine Ratio 18.6, Glucose 109 H, Calcium 9.8, Troponin I < 0.015 09/04/20 14:45: B-Natriuretic Peptide 175.5 H 09/04/20 18:37: PT 13.8, INR 1.1 09/04/20 18:37: Magnesium 2.1, Troponin I < 0.015, TSH 0.30 L 09/04/20 18:37: Hemoglobin A1c 5.8 H 09/04/20 21:22: POC Glucose 141 H 09/04/20 21:31: Troponin I < 0.015 09/05/20 05:55: WBC 4.9, RBC 4.27, Hgb 12.8, Hct 43.0, MCV 100.7 H, MCH 30.0, MCHC 29.8 L, RDW Std Deviation 58.3 H, RDW Coeff of Stephanie 15.7 H, Plt Count 253, MPV 10.1, Immature Gran % (Auto) 0.200, Neut % (Auto) 61.4, Lymph % (Auto) 27.0, [place] % (Auto) 8.6, Eos % (Auto) 2.2, Baso % (Auto) 0.6, Absolute Neuts (auto) 3.0, Absolute Lymphs (auto) 1.32, Nucleated RBC % 0 09/05/20 05:55: Sodium 140, Potassium 4.3, Chloride 103, Carbon Dioxide 36.0 H, Anion Gap 1 L, BUN 23 H, Creatinine 0.98, Estim Creat Clear Calc 48.10, Est GFR (MDRD) Af Amer 72, Est GFR (MDRD) Non-Af 60, BUN/Creatinine Ratio 23.4 H, Glucose 103, Calcium 9.3 09/05/20 05:55: Free T4 0.83, Free T3 pg/dL 2.4 09/05/20 06:57: POC Glucose 102 09/05/20 10:54: POC Glucose 149 H Current Medications Acetaminophen (Tylenol) 650 mg PO Q6H PRN PRN PRN Reason: Pain Score 1-10/Temp > 100.7 F Atorvastatin Calcium (Lipitor) 20 mg PO QHS [facility] Last Admin: 09/04/20 21:16 Dose: 20 mg Documented by: Diltiazem HCl (Cardizem Cd) 240 mg PO DAILY [facility] Last Admin: 09/05/20 09:09 Dose: 240 mg Documented by: Enoxaparin Sodium (Lovenox) 100 mg SC Q12@0600,1800 [facility] Last Admin: 09/05/20 05:02 Dose: 100 mg Documented by: Furosemide (Furosemide 40 Mg/4 Ml Vial) 40 mg IV BID@1000,1800 [facility] Last Admin: 09/05/20 09:09 Dose: 40 mg Documented by: Diltiazem HCl 125 mg/ Dextrose 125 mls @ 5 mls/hr IV .Q25H [facility]; Protocol Last Titration: 09/05/20 14:00 Dose: 15 mg/hr, 15 mls/hr Documented by: Insulin Human Lispro (Insulin Lispro 100 Unit/Ml Insuln.Pen) 0 unit SC ACHS [facility]; Protocol Last Admin: 09/05/20 10:56 Dose: Not Given Documented by: Ipratropium [place] (Ipratropium 0.5 Mg/2.5 Ml Solution) 0.5 mg INHALATION Q4H.RT [facility] Lisinopril (Zestril) 5 mg PO DAILY [facility] Last Admin: 09/05/20 09:09 Dose: 5 mg Documented by: Methylprednisolone (Methylprednisolone 40 Mg/Ml Vial) 40 mg IV Q8H [facility] Last Admin: 09/05/20 11:56 Dose: 40 mg Documented by: Ondansetron HCl (Zofran) 4 mg IV Q8H PRN PRN PRN Reason: NAUSEA/VOMITING Senna/Docusate Sodium (Senokot-S, Shaye-Colace) 2 tablet PO BID PRN PRN PRN Reason: Constipation Sodium Chloride () 10 - 40 ml IV UD PRN PRN Reason: SALINE FLUSH Last Admin: 09/05/20 11:56 Dose: 10 ml Documented by: Zolpidem Tartrate (Ambien (Generic)) 5 mg PO QHS PRN PRN PRN Reason: INSOMNIA Assessment/Plan All Active Problems Atrial flutter with rapid ventricular response (Acute) Congestive heart failure (CHF) (Acute) RECOMMENDATIONS: 1. Continue steroid and diuretic therapy 2. Initiate empiric BiPAP therapy with sleep 3. Okay to avoid albuterol given RVR 4. Walking oximetry prior to discharge 5. Outpatient complete PFT for quantification and clarification of lung function IMPRESSIONS: 1. Acute on chronic hypoxic respiratory insufficiency secondary to a flutter with RVR Patient's rate is better controlled compared to previous. Chest x-ray did show some cephalization. Echocardiogram is not suggestive of diastolic dysfunction, but patient does have left atrial enlargement. Defer to cardiology. Patient does have what appears to be an element of COPD that may be complicating current situation. Will place patient on steroids and bronchodilators. Continue with incentive spirometer and Acapella therapy. Patient will need an outpatient pulmonary function test for quantification clarification of lung function. If patient fails to improve, CT without contrast may be indicated to evaluate for interstitial lung disease. Patient does have some elevated pulmonary artery pressures of unclear etiology. Would not recommend a right heart catheterization in the hospital. If patient were to deteriorate, the use of AVAPS during the day would be a reasonable salvage therapy initially. 2. Suspected MOMO Unclear if patient went into a flutter secondary to uncontrolled sleep apnea. Will place patient on empiric nocturnal BiPAP therapy. Patient does have an elevated bicarbonate, but it is unclear if this is secondary to obesity hypoventilation syndrome. This will be very difficult to assess while on supplemental oxygen. Patient is not currently on narcotics to explain hypoventilation. Patient would benefit from an outpatient polysomnogram. 3. Hypertension/hyperlipidemia/type 2 diabetes mellitus/tobacco dependence/obesity Complicates care, management, recovery and prognosis. Continue with current therapy. We will have to watch blood sugars given lack of metformin and concomitant steroid therapy. Defer transition to p.o. rate control to cardiology Inpatient E&M: 99369 Init Hosp L3
[2020-09-05] MEDS: Ipratropium 0.5 MG/2.5 ML SOLUTION INHALATION ×3 (15:23→22:50)
[2020-09-05] MEDS: Insulin Lispro 100 UNIT/ML INSULN.PEN SC ×2 (16:53→20:56)
--- NOTE | 2020-09-05 17:00 | PCM.CONS.C ---
Reason for Consult Date of Consultation: 09/05/20 Reason for Consultation: atrial flutter History of Present Illness: The patient is a 69 year old F who presents to emergency room due to palpitations and shortness of breath. Patient reports this is been ongoing for 1-1/2 to 2 weeks intermittently however has worsened over the past week. Patient states she has a history of atrial flutter with cardioversion in 2014. To her knowledge, she has not had recurrence of a flutter since that time. She has not followed with cardiology as outpatient. She denies chest pain. Denies lower extremity swelling or weight gain. Patient states she has had significant stress in her life over the past 2 months. She has a past medical history of atrial flutter status post cardioversion, hypertension, hyperlipidemia, type 2 diabetes mellitus, CBP/asthma, tobacco dependence, obesity. Patient was admitted to the PCU and started on Cardizem drip. Her heart rate is better. She was also started on IV Lasix. She had some wheezing this morning and pulmonary consult was requested. She apparently has some degree of COPD and is being started on medications for that as well. Review of systems: All systems reviewed. All else is negative except that in the HPI Past Medical History Allergies/Adverse Reactions: Allergies aspirin Allergy (Verified 09/04/20 14:21) Hives codeine Adverse Reaction (Verified 09/04/20 14:21) Nausea Home Medications: Ambulatory Orders Medication Instructions Recorded Albuterol Inhaler [Ventolin Hfa] 1 - 2 puff INHALATION Q4H PRN PRN 03/10/15 #1 inhaler Ascorbic Acid [Fruit C-500] 1,000 mg PO DAILY 09/04/20 Atorvastatin Calcium [Lipitor] 20 mg PO QHS 09/04/20 Diltiazem CD [Cardizem CD] 240 mg PO DAILY 09/04/20 Lisinopril [Zestril] 5 mg PO DAILY 09/04/20 Metformin HCl [Metformin HCl ER] 500 mg PO DAILY 09/04/20 Past Medical History (Chronic Problems): Chronic Problems Hyperlipidemia (Chronic) Type 2 diabetes mellitus (Chronic) Asthma (Chronic) COPD (chronic obstructive pulmonary disease) with acute bronchitis (Chronic) Atrial flutter (Chronic) Tobacco dependence (Chronic) Surgical History: - - Lumbar laminectomy, hysterectomy Psychiatric History: No pertinent psych hx 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 - *Family History Paternal History Items: - - secondary to [place] Maternal History Items: - - related to [place] Lives: Spouse/ Significant Other Smoking Status: Former smoker Tobacco Use: Cigarettes Alcohol: None Drugs: None Objective: Vital Signs Temp Pulse Resp BP Pulse Ox 97.6 F L 81 19 H 109/62 93 09/05/20 12:00 09/05/20 16:00 09/05/20 16:00 09/05/20 16:00 09/05/20 16:00 Oxygen Flow Rate (L/min) 5 Oxygen Delivery Method Nasal Cannula Weight: 240 lb 11.916 oz Body Mass Index (BMI) 41.1 Intake and Output for Last 24 Hours 09/03/20 09/04/20 09/05/20 23:59 23:59 23:59 Intake Total 253.92 / 263.92 612.75 / 612.75 Output Total 0 / 0 Balance 253.92 / 263.92 612.75 / 612.75 General: Awake, Alert, Oriented x 3 HEENT: Atraumatic Oral: Moist Mucosa Neck: Supple Lungs: Clear to auscultation Cardiovascular: Irregular Rhythm Abdomen: Soft Extremities: No edema Skin: No Rashes Psych/Mental Status: Appropriate 09/04/20 18:37: PT 13.8, INR 1.1 09/04/20 18:37: Magnesium 2.1, Troponin I < 0.015 09/04/20 18:37: Hemoglobin A1c 5.8 H 09/04/20 21:31: Troponin I < 0.015 09/05/20 05:55: WBC 4.9, RBC 4.27, Hgb 12.8, Hct 43.0, MCV 100.7 H, MCH 30.0, MCHC 29.8 L, Plt Count 253, MPV 10.1, Immature Gran % (Auto) 0.200, Neut % (Auto) 61.4, Lymph % (Auto) 27.0, [place] % (Auto) 8.6, Eos % (Auto) 2.2, Baso % (Auto) 0.6, Absolute Neuts (auto) 3.0, Nucleated RBC % 0 09/05/20 05:55: Sodium 140, Potassium 4.3, Chloride 103, Carbon Dioxide 36.0 H, Anion Gap 1 L, BUN 23 H, Creatinine 0.98, Est GFR (MDRD) Af Amer 72, Est GFR (MDRD) Non-Af 60, BUN/Creatinine Ratio 23.4 H, Glucose 103, Calcium 9.3 Rhythm: EKG: ECHO: Stress Test: Cardiac Cath: PCI: CT Surgery: Holter monitor: EPS: PPM: CXR: Chest CT Scan: Assessment/Plan 1. Atrial flutter: Patient has history of prior flutter that was treated with cardioversion and since then she has not had a recurrence till now. Patient did not feel her heart racing when she was having rapid ventricular response. She feels better now that her heart rate is under better control. She was inquiring about cardioversion. We will increase her p.o. Cardizem and try to wean off IV Cardizem. If required we will add a beta-mynor. She will need to be on anticoagulation for at least 1 month prior to cardioversion. She can be started on Eliquis. 2. CHF: Could be related to the a flutter with rapid ventricular response. She has preserved EF. We may be able to DC the Lasix or use it as needed from tomorrow. Patient also preferred not to be on maintenance Lasix if she could stay off it.
[2020-09-05 17:20] LABS: Bedside Glucose 282 mg/dL (70-110)
[2020-09-05] MEDS: dilTIAZem CD 120 MG Capsule PO (19:43)
[2020-09-05] MEDS: APIXABAN 5 MG TABLET PO (20:50)
[2020-09-05] MEDS: Atorvastatin Calcium 20 MG Tablet PO (20:50)
[2020-09-05 21:06] LABS: Bedside Glucose 279 mg/dL (70-110)
[2020-09-06] VITALS (21 sets, daily range): BP systolic 91–127; BP diastolic 50–92; PULSE 66–124; RESP 17–26; TEMP 36.6–37.3; O2SAT 92–98
--- NOTE | 2020-09-06 01:30 | NURSING ---
Cardizem gtt. paused at this time as per nurse communication orders. VSS. Pt. sleeping with Bipap on at 40%. No distress noted. Earlier in night around 2330, pt. was up to bathroom with no significant increase in heart rate or drop in oxygen level. Continued to monitor heart rate and rhythm once pt. placed on bipap and no significant changes occurred. Will continue to monitor.
--- NOTE | 2020-09-06 03:18 | CPS ---
pt did not want breathing tx at 0318.
[2020-09-06] MEDS: 0.9% Saline Lock 10 ML Syringe IV ×2 (04:59→05:04)
[2020-09-06 05:44] LABS: Anion Gap 4 (5-15); BUN 31 mg/dL (7-18); BUN/Creat Ratio 26.1 RATIO (10-20); Calcium,Total 9.4 mg/dL (8.5-10.1); Chloride 99 mmol/L (98-107); Creatinine, Serum 1.19 mg/dL (0.55-1.02); EST Glomerular Filtration Rate 48 mL/min (>60); Est Glom Filt Rate - Afr Amer 58 mL/min (>60); Estimated Creatinine Clearance 39.61 ml/min; Glucose 157 mg/dL (74-106); Potassium 4.5 mmol/L (3.5-5.1); Sodium Level 137 mmol/L (136-145)
[2020-09-06] MEDS: Ipratropium 0.5 MG/2.5 ML SOLUTION INHALATION ×5 (07:03→22:44)
[2020-09-06] MEDS: Insulin Lispro 100 UNIT/ML INSULN.PEN SC ×3 (07:06→16:15)
[2020-09-06 07:15] LABS: Bedside Glucose 165 mg/dL (70-110)
[2020-09-06] MEDS: dilTIAZem CD 180 MG Capsule 360 MG PO (08:39)
[2020-09-06] MEDS: APIXABAN 5 MG TABLET PO ×2 (10:00→22:13)
[2020-09-06] MEDS: Lisinopril 5 MG Tablet PO (10:00)
--- NOTE | 2020-09-06 10:26 | PN_ITS ---
Patient Problems: Active and Suspected Problems Atrial flutter with rapid ventricular response (Acute) Congestive heart failure (CHF) (Acute) Subjective: Patient states that she did wonderful overnight with the BiPAP. Patient is very excited about the possibility of having 1 of these for home. Patient reports that she is also been working diligently on her incentive spirometer and is achieving [id number] routinely. Patient is reporting palpitations this morning and heart rate was noted to be 132 bpm at the bedside monitor. - Physical Exam Vitals/I&O's: Vital Signs Temp Pulse Resp BP Pulse Ox 36.8 C 100 18 103/92 H 94 09/06/20 10:00 09/06/20 10:00 09/06/20 10:00 09/06/20 10:00 09/06/20 10:00 Oxygen Flow Rate (L/min) 5 Oxygen Delivery Method Nasal Cannula Weight: 108.2 kg Body Mass Index (BMI) 41.1 Intake and Output for Last 24 Hours 09/04/20 09/05/20 09/06/20 23:59 23:59 23:59 Intake Total 253.92 / 263.92 1214.67 / 1217.17 210.0 / 210.0 Output Total 0 / 0 0 / 0 Balance 253.92 / 263.92 1214.67 / 1217.17 210.0 / 210.0 General: Alert, Oriented x3, Cooperative, No apparent distress, - - Morbidly obese. Speaking in full sentences. HEENT: Atraumatic, PERRLA, EOMI, Normocephalic, - - No scleral icterus or injection noted Oral: Moist Mucosa, No Gingival or Mucosal Lesions/ Ulcerations Neck: Supple, No JVD, No Nodes, Trachea Midline Lungs: No rhonchi, No rales, Diminished, Wheezes Cardiovascular: Normal S1, Normal S2, No murmurs, Irregular Rate, No rub noted, No Gallop, Tachycardic Abdomen: Bowel Sounds Present, Soft, Non Tender, Non-Distended, Obese Extremities: No cyanosis, No edema, Capillary Refill Less than 3 Seconds, Clubbing Skin: - - No change compared to yesterday Musculoskeletal: No Tenderness to Palpation of Joints or Extremities Lymphatic: No Cervical, Supraclavicular, or Inguinal Adenopathy Neurological: Cranial nerves II-XII grossly intact, Neuro grossly intact, Motor Exam 5/5 strength throughout Psych/Mental Status: Alert and oriented to time, place, person, mood and affect Laboratory Results 09/05/20 10:54: POC Glucose 149 H 09/05/20 16:41: POC Glucose 282 H 09/05/20 20:54: POC Glucose 279 H 09/06/20 05:23: Sodium 137, Potassium 4.5, Chloride 99, Carbon Dioxide 34.0 H, Anion Gap 4 L, BUN 31 H, Creatinine 1.19 H, Estim Creat Clear Calc 39.61, Est GFR (MDRD) Af Amer 58 L, Est GFR (MDRD) Non-Af 48 L, BUN/Creatinine Ratio 26.1 H , Glucose 157 H, Calcium 9.4 09/06/20 07:03: POC Glucose 165 H Current Medications Acetaminophen (Tylenol) 650 mg PO Q6H PRN PRN PRN Reason: Pain Score 1-10/Temp > 100.7 F Apixaban (Apixaban 5 Mg Tablet) 5 mg PO BID [facility] Last Admin: 09/06/20 10:00 Dose: 5 mg Documented by: Atorvastatin Calcium (Lipitor) 20 mg PO QHS [facility] Last Admin: 09/05/20 20:50 Dose: 20 mg Documented by: Diltiazem HCl (Diltiazem Cd 180 Mg Capsule) 360 mg PO DAILY [facility] Last Admin: 09/06/20 08:39 Dose: 360 mg Documented by: Diltiazem HCl 125 mg/ Dextrose 125 mls @ 5 mls/hr IV .Q25H [facility]; Protocol Last Titration: 09/06/20 01:30 Dose: 0 mg/hr, 0 mls/hr Documented by: Insulin Human Lispro (Insulin Lispro 100 Unit/Ml Insuln.Pen) 0 unit SC ACHS [facility]; Protocol Last Admin: 09/06/20 07:06 Dose: 1 units Documented by: Ipratropium [place] (Ipratropium 0.5 Mg/2.5 Ml Solution) 0.5 mg INHALATION Q4H.RT [facility] Last Admin: 09/06/20 10:23 Dose: 0.5 mg Documented by: Lisinopril (Zestril) 5 mg PO DAILY [facility] Last Admin: 09/06/20 10:00 Dose: 5 mg Documented by: Methylprednisolone (Methylprednisolone 40 Mg/Ml Vial) 40 mg IV Q8H [facility] Last Admin: 09/06/20 04:59 Dose: 40 mg Documented by: Ondansetron HCl (Zofran) 4 mg IV Q8H PRN PRN PRN Reason: NAUSEA/VOMITING Senna/Docusate Sodium (Senokot-S, Shaye-Colace) 2 tablet PO BID PRN PRN PRN Reason: Constipation Sodium Chloride () 10 - 40 ml IV UD PRN PRN Reason: SALINE FLUSH Last Admin: 09/06/20 05:04 Dose: 10 ml Documented by: Zolpidem Tartrate (Ambien (Generic)) 5 mg PO QHS PRN PRN PRN Reason: INSOMNIA Medical Necessity - Tobacco Use Smoking Status: Former smoker Tobacco Use: Cigarettes Assessment/Plan All Active Problems Atrial flutter with rapid ventricular response (Acute) Congestive heart failure (CHF) (Acute) RECOMMENDATIONS: 1. Consider weaning steroid and diuretic therapy 2. Continue empiric BiPAP therapy with sleep 3. Okay to avoid albuterol given RVR 4. Walking oximetry prior to discharge 5. Outpatient complete PFT for quantification and clarification of lung function IMPRESSIONS: 1. Acute on chronic hypoxic respiratory insufficiency secondary to a flutter with RVR Patient's rate is better controlled compared to previous. Chest x-ray did show some cephalization. Echocardiogram is not suggestive of diastolic dysfunction, but patient does have left atrial enlargement. Patient has uncontrolled RVR this morning which may be leading to further symptomatology. Will attempt to wean steroids. Defer to cardiology if they want to proceed with a RUBI with cardioversion versus anticoagulation and improved rate control. Okay to use beta-mynor from a pulmonary perspective. Continue with incentive spirometer and Acapella therapy. Patient will need an outpatient pulmonary function test for quantification clarification of lung function. If patient fails to improve with controlled heart rate, CT without contrast may be indicated to evaluate for interstitial lung disease. Patient does have some elevated pulmonary artery pressures of unclear etiology. Would not recommend a right heart catheterization in the hospital. If patient were to deteriorate, the use of AVAPS during the day would be a reasonable salvage therapy initially. 2. Suspected MOMO Unclear if patient went into a flutter secondary to uncontrolled sleep apnea. Will place patient on empiric nocturnal BiPAP therapy. Patient does jennings ve an elevated bicarbonate, but it is unclear if this is secondary to obesity hypoventilation syndrome. This will be very difficult to assess while on supplemental oxygen. Patient is not currently on narcotics to explain hypoventilation. Patient would benefit from an outpatient polysomnogram. 3. Hypertension/hyperlipidemia/type 2 diabetes mellitus/tobacco dependence/obesity Complicates care, management, recovery and prognosis. Continue with current therapy. We will have to watch blood sugars given lack of metformin and concomitant steroid therapy. Defer p.o. rate control to cardiology Inpatient E&M: [id number] Subs Hosp L2
--- NOTE | 2020-09-06 10:34 | CASEMGMT ---
[place] [facility] [place] 3-4liters continuous home oxygen but pt states has only been wearing 2liters w/ ambulation and bedtime. Joey CÁRDENAS updated at this time, voices understanding. Pt is currently on 5liters nc. Jacquelyn CHAVES CM
[2020-09-06] MEDS: Metoprolol Tartrate 50 MG Tablet PO ×2 (11:38→22:13)
[2020-09-06 12:05] LABS: Bedside Glucose 349 mg/dL (70-110)
--- NOTE | 2020-09-06 12:33 | PN_ITS ---
<HermanLorena FAST FOOD DELIVERY DRIVER - Last Filed: 09/06/20 12:55> Patient Problems: Active and Suspected Problems Atrial flutter with rapid ventricular response (Acute) Congestive heart failure (CHF) (Acute) Subjective: Patient seen and examined. Reports improvement in breathing. Heart rate increased this morning with movement. - Physical Exam Vitals/I&O's: Vital Signs Temp Pulse Resp BP Pulse Ox 98.2 F 119 H 18 120/74 96 09/06/20 11:35 09/06/20 11:38 09/06/20 11:35 09/06/20 11:35 09/06/20 11:35 Oxygen Flow Rate (L/min) 5 Oxygen Delivery Method Nasal Cannula Weight: 238 lb 8.642 oz Body Mass Index (BMI) 41.1 Intake and Output for Last 24 Hours 09/04/20 09/05/20 09/06/20 23:59 23:59 23:59 Intake Total 253.92 / 263.92 1214.67 / 1217.17 760.0 / 760.0 Output Total 0 / 0 0 / 0 Balance 253.92 / 263.92 1214.67 / 1217.17 760.0 / 760.0 General: Alert, Oriented x3, Cooperative HEENT: Atraumatic, PERRLA, EOMI, Normocephalic Neck: Supple, No JVD, Negative Carotid Bruits Lungs: Diminished, Wheezes Cardiovascular: - - Atrial flutter, RVR Abdomen: Bowel Sounds Present, Soft, Non Tender, Non-Distended Extremities: No clubbing, No cyanosis, No edema, Capillary Refill Less than 3 Seconds Skin: No rashes, No breakdown Musculoskeletal: No Tenderness to Palpation of Joints or Extremities Neurological: Cranial nerves II-XII grossly intact, Neuro grossly intact Psych/Mental Status: Anxious Laboratory Results 09/05/20 16:41: POC Glucose 282 H 09/05/20 20:54: POC Glucose 279 H 09/06/20 05:23: Sodium 137, Potassium 4.5, Chloride 99, Carbon Dioxide 34.0 H, Anion Gap 4 L, BUN 31 H, Creatinine 1.19 H, Estim Creat Clear Calc 39.61, Est GFR (MDRD) Af Amer 58 L, Est GFR (MDRD) Non-Af 48 L, BUN/Creatinine Ratio 26.1 H , Glucose 157 H, Calcium 9.4 09/06/20 07:03: POC Glucose 165 H 09/06/20 11:52: POC Glucose 349 H Current Medications Acetaminophen (Tylenol) 650 mg PO Q6H PRN PRN PRN Reason: Pain Score 1-10/Temp > 100.7 F Apixaban (Apixaban 5 Mg Tablet) 5 mg PO BID [facility] Last Admin: 09/06/20 10:00 Dose: 5 mg Documented by: Atorvastatin Calcium (Lipitor) 20 mg PO QHS [facility] Last Admin: 09/05/20 20:50 Dose: 20 mg Documented by: Diltiazem HCl (Diltiazem Cd 180 Mg Capsule) 360 mg PO DAILY [facility] Last Admin: 09/06/20 08:39 Dose: 360 mg Documented by: Diltiazem HCl 125 mg/ Dextrose 125 mls @ 5 mls/hr IV .Q25H [facility]; Protocol Last Titration: 09/06/20 01:30 Dose: 0 mg/hr, 0 mls/hr Documented by: Insulin Human Lispro (Insulin Lispro 100 Unit/Ml Insuln.Pen) 0 unit SC [facility]; Protocol Last Admin: 09/06/20 11:54 Dose: 5 units Documented by: Ipratropium [place] (Ipratropium 0.5 Mg/2.5 Ml Solution) 0.5 mg INHALATION Q4H.RT [facility] Last Admin: 09/06/20 10:23 Dose: 0.5 mg Documented by: Lisinopril (Zestril) 5 mg PO DAILY [facility] Last Admin: 09/06/20 10:00 Dose: 5 mg Documented by: Methylprednisolone (Methylprednisolone 40 Mg/Ml Vial) 40 mg IV Q12 [facility] Metoprolol Tartrate (Metoprolol Tartrate 50 Mg Tablet) 50 mg PO BID [facility] Last Admin: 09/06/20 11:38 Dose: 50 mg Documented by: Ondansetron HCl (Zofran) 4 mg IV Q8H PRN PRN PRN Reason: NAUSEA/VOMITING Senna/Docusate Sodium (Senokot-S, Shaye-Colace) 2 tablet PO BID PRN PRN PRN Reason: Constipation Sodium Chloride () 10 - 40 ml IV UD PRN PRN Reason: SALINE FLUSH Last Admin: 09/06/20 05:04 Dose: 10 ml Documented by: Zolpidem Tartrate (Ambien (Generic)) 5 mg PO QHS PRN PRN PRN Reason: INSOMNIA Medical Necessity - Tobacco Use Smoking Status: Former smoker Tobacco Use: Cigarettes Assessment/Plan All Active Problems Atrial flutter with rapid ventricular response (Acute) Congestive heart failure (CHF) (Acute) 1. Atrial flutter with RVR-history of cardioversion February 2015. Cardiology consulted. Echocardiogram demonstrates an EF of 65%, RVSP estimated to be 32 mmHg. Started on Eliquis. Plan for cardioversion after at least 1 month of anticoagulation. IV Cardizem drip stopped early this morning. Increased home oral Cardizem regimen to 360 mg p.o. daily. Initiated on metoprolol 50 mg twice daily. 2. Mild acute CHF-secondary to #1. Chest x-ray with mild degree of vascular congestion. BNP 175. Echo as noted above. DC further IV Lasix. 3. Chronic COPD/asthma with exacerbation-significant wheezing on assessment. Pulmonary medicine consulted to establish for outpatient follow-up. IV Solu- Medrol. DuoNeb aerosols. 4. Acute on chronic hypoxic respiratory insufficiency-secondary to #2/#3- treatment per above. Continue supplement oxygen to maintain O2 sat above 90%. Walking pulse ox prior to discharge. Patient initially states she was not on oxygen continuously. Case management checked on oxygen order and patient is prescribed to wear 3 to 4 L continuously. Patient has not been compliant with wearing oxygen at home. 5. Hypertension-stable, continue lisinopril. 6. Hyperlipidemia-continue statin. 7. Type 2 diabetes mellitus-hold metformin. Hemoglobin A1c 5.8%. Accu-Cheks with sliding scale insulin. 8. Tobacco dependence-recently quit 2 weeks ago following laser treatment. Encouraged continued cessation. 9. Obesity-encouraged diet and lifestyle modifications. 10. Suspected MOMO-initiated on BiPAP therapy while in hospital. Will need outpatient PSG. DVT prophylaxis-Dana This patient was seen by RADHA Booth under the supervision of Dr. Delgadillo. <Beata Delgadillo - Last Filed: 09/06/20 18:38> - Physical Exam Vitals/I&O's: Vital Signs Temp Pulse Resp BP Pulse Ox 98.3 F 76 18 98/50 L 93 09/06/20 18:05 09/06/20 18:05 09/06/20 18:05 09/06/20 18:05 09/06/20 18:05 Oxygen Flow Rate (L/min) 4 Oxygen Delivery Method Nasal Cannula Weight: 108.2 kg Body Mass Index (BMI) 41.1 Intake and Output for Last 24 Hours 09/04/20 09/05/20 09/06/20 23:59 23:59 23:59 Intake Total 253.92 / 263.92 1214.67 / 1217.17 1380.0 / 1380.0 Output Total 0 / 0 0 / 0 Balance 253.92 / 263.92 1214.67 / 1217.17 1380.0 / 1380.0 Laboratory Results 09/05/20 20:54: POC Glucose 279 H 09/06/20 05:23: Sodium 137, Potassium 4.5, Chloride 99, Carbon Dioxide 34.0 H, Anion Gap 4 L, BUN 31 H, Creatinine 1.19 H, Estim Creat Clear Calc 39.61, Est GFR (MDRD) Af Amer 58 L, Est GFR (MDRD) Non-Af 48 L, BUN/Creatinine Ratio 26.1 H , Glucose 157 H, Calcium 9.4 09/06/20 07:03: POC Glucose 165 H 09/06/20 11:52: POC Glucose 349 H 09/06/20 16:12: POC Glucose 190 H Current Medications Acetaminophen (Tylenol) 650 mg PO Q6H PRN PRN PRN Reason: Pain Score 1-10/Temp > 100.7 F Apixaban (Apixaban 5 Mg Tablet) 5 mg PO BID [facility] Last Admin: 09/06/20 10:00 Dose: 5 mg Documented by: Atorvastatin Calcium (Lipitor) 20 mg PO QHS [facility] Last Admin: 09/05/20 20:50 Dose: 20 mg Documented by: Diltiazem HCl (Diltiazem Cd 180 Mg Capsule) 360 mg PO DAILY [facility] Last Admin: 09/06/20 08:39 Dose: 360 mg Documented by: Insulin Human Lispro (Insulin Lispro 100 Unit/Ml Insuln.Pen) 0 unit SC ACHS [facility]; Protocol Last Admin: 09/06/20 16:15 Dose: 2 units Documented by: Ipratropium [place] (Ipratropium 0.5 Mg/2.5 Ml Solution) 0.5 mg INHALATION Q4H.RT [facility] Last Admin: 09/06/20 15:10 Dose: 0.5 mg Documented by: Lisinopril (Zestril) 5 mg PO DAILY [facility] Last Admin: 09/06/20 10:00 Dose: 5 mg Documented by: Methylprednisolone (Methylprednisolone 40 Mg/Ml Vial) 40 mg IV Q12 [facility] Metoprolol Tartrate (Metoprolol Tartrate 50 Mg Tablet) 50 mg PO BID [facility] Last Admin: 09/06/20 11:38 Dose: 50 mg Documented by: Ondansetron HCl (Zofran) 4 mg IV Q8H PRN PRN PRN Reason: NAUSEA/VOMITING Senna/Docusate Sodium (Senokot-S, Shaye-Colace) 2 tablet PO BID PRN PRN PRN Reason: Constipation Sodium Chloride () 10 - 40 ml IV UD PRN PRN Reason: SALINE FLUSH Last Admin: 09/06/20 05:04 Dose: 10 ml Documented by: Zolpidem Tartrate (Ambien (Generic)) 5 mg PO QHS PRN PRN PRN Reason: INSOMNIA Assessment/Plan This patient was seen in conjunction with Lorena Sutton FAST FOOD DELIVERY DRIVER. I have independently interviewed and examined the patient and reviewed pertinent historical, laboratory, and other data. Please refer to her note for patient's presentation, findings, and recommendations. Patient was seen and examined. Her HR is not controlled. She remains short of breath. Vitals were reviewed -stable Physical Exam: Gen: Mildly dyspneic, not pale, not jaundiced, alert oriented x3, on 5 L of oxygen CVS:HS I +II, regular, no murmurs RESP: Decreased air entry, audible and expiratory wheezes GI: BS present and normal, nontender, no palpable organs EXT: Bilateral pedal edema +1 Labs reviewed: ASSESSMENT: 1. A flutter with RVR 2. Acute on chronic diastolic CHF exacerbation, EF 65% 3. Acute COPD exacerbation 4. Hypertension 5. Type II DM 6. Nicotine dependence, advised to quit 7. Morbid obesity Meds reviewed Plan: Continue with oral Cardizem Continue on metoprolol oral bid Decrease Lasix 20 mg IV twice daily Continue with IV Solu-Medrol Continue on ipratropium scheduled inhalation Continue on insulin sliding scale Inpatient E&M: [id number] [place] [id number]
[2020-09-06 17:10] LABS: Bedside Glucose 190 mg/dL (70-110)
[2020-09-06] MEDS: Atorvastatin Calcium 20 MG Tablet PO (22:13)
[2020-09-06 22:55] LABS: Bedside Glucose 147 mg/dL (70-110)
[2020-09-07] VITALS (20 sets, daily range): BP systolic 105–129; BP diastolic 60–75; PULSE 60–122; RESP 12–25; TEMP 36.4–36.9; O2SAT 92–96
--- NOTE | 2020-09-07 03:15 | CPS ---
PATIENT REFUSED TREATMENT.
[2020-09-07] MEDS: Acetaminophen 325 MG Tablet 650 MG PO (06:37)
[2020-09-07 06:47] LABS: Anion Gap 3 (5-15); BUN 47 mg/dL (7-18); BUN/Creat Ratio 37.9 RATIO (10-20); Calcium,Total 8.8 mg/dL (8.5-10.1); Chloride 100 mmol/L (98-107); Creatinine, Serum 1.24 mg/dL (0.55-1.02); EST Glomerular Filtration Rate 46 mL/min (>60); Est Glom Filt Rate - Afr Amer 55 mL/min (>60); Estimated Creatinine Clearance 38.02 ml/min; Glucose 160 mg/dL (74-106); Potassium 4.5 mmol/L (3.5-5.1); Sodium Level 137 mmol/L (136-145)
[2020-09-07] MEDS: Ipratropium 0.5 MG/2.5 ML SOLUTION INHALATION ×5 (07:06→23:29)
[2020-09-07 07:31] LABS: Bedside Glucose 155 mg/dL (70-110)
[2020-09-07] MEDS: Metoprolol Tartrate 50 MG Tablet PO ×2 (08:15→21:13)
[2020-09-07] MEDS: dilTIAZem CD 180 MG Capsule 360 MG PO (08:15)
[2020-09-07] MEDS: APIXABAN 5 MG TABLET PO ×2 (08:15→21:12)
[2020-09-07] MEDS: Lisinopril 5 MG Tablet PO (08:16)
[2020-09-07] MEDS: 0.9% Saline Lock 10 ML Syringe IV (08:27)
--- NOTE | 2020-09-07 09:22 | PCM.PN.PUL ---
Patient Problems: Active and Suspected Problems Atrial flutter with rapid ventricular response (Acute) Congestive heart failure (CHF) (Acute) Subjective: Patient did okay overnight. Patient did report significant difficulty with BiPAP. Patient states she felt like she was leaking too much and not getting enough air. Patient has remained on 4 L nasal cannula. Patient reports she is normally on 4 L nasal cannula at baseline - Physical Exam Vitals/I&O's: Vital Signs Temp Pulse Resp BP Pulse Ox 36.4 C L 122 H 18 115/71 92 09/07/20 08:12 09/07/20 08:15 09/07/20 08:12 09/07/20 08:15 09/07/20 08:12 Oxygen Flow Rate (L/min) 4 Oxygen Delivery Method Nasal Cannula Weight: 108 kg Body Mass Index (BMI) 41.1 Intake and Output for Last 24 Hours 09/05/20 09/06/20 09/07/20 23:59 23:59 23:59 Intake Total 1214.67 / 1217.17 1620.0 / 1620.0 Output Total 0 / 0 0 / 0 Balance 1214.67 / 1217.17 1620.0 / 1620.0 General: Alert, Oriented x3, Cooperative, No apparent distress, - - Morbidly obese. Speaking in full sentences. HEENT: Atraumatic, PERRLA, EOMI, Normocephalic, - - No scleral icterus or injection noted Oral: Moist Mucosa, No Gingival or Mucosal Lesions/ Ulcerations, - - Crowded posterior pharynx Neck: Supple, No Nodes, Trachea Midline Lungs: No rhonchi, No rales, Diminished, Wheezes - Sporadic Cardiovascular: Regular rate, Regular Rhythm, Normal S1, Normal S2, No murmurs, No rub noted, No Gallop Abdomen: Bowel Sounds Present, Soft, Non Tender, Non-Distended, Obese Extremities: No cyanosis, No edema, Capillary Refill Less than 3 Seconds, Clubbing Skin: - - No change compared to previous Musculoskeletal: No Tenderness to Palpation of Joints or Extremities Lymphatic: No Cervical, Supraclavicular, or Inguinal Adenopathy Neurological: Cranial nerves II-XII grossly intact, Neuro grossly intact, Motor Exam 5/5 strength throughout Psych/Mental Status: Alert and oriented to time, place, person, mood and affect Laboratory Results 09/06/20 11:52: POC Glucose 349 H 09/06/20 16:12: POC Glucose 190 H 09/06/20 22:11: POC Glucose 147 H 09/07/20 06:08: Sodium 137, Potassium 4.5, Chloride 100, Carbon Dioxide 34.0 H, Anion Gap 3 L, BUN 47 H, Creatinine 1.24 H, Estim Creat Clear Calc 38.02, Est GFR (MDRD) Af Amer 55 L, Est GFR (MDRD) Non-Af 46 L, BUN/Creatinine Ratio 37.9 H, Glucose 160 H, Calcium 8.8 09/07/20 06:32: POC Glucose 155 H Current Medications Acetaminophen (Tylenol) 650 mg PO Q6H PRN PRN PRN Reason: Pain Score 1-10/Temp > 100.7 F Last Admin: 09/07/20 06:37 Dose: 650 mg Documented by: Apixaban (Apixaban 5 Mg Tablet) 5 mg PO BID [facility] Last Admin: 09/07/20 08:15 Dose: 5 mg Documented by: Atorvastatin Calcium (Lipitor) 20 mg PO QHS [facility] Last Admin: 09/06/20 22:13 Dose: 20 mg Documented by: Diltiazem HCl (Diltiazem Cd 180 Mg Capsule) 360 mg PO DAILY [facility] Last Admin: 09/07/20 08:15 Dose: 360 mg Documented by: Insulin Human Lispro (Insulin Lispro 100 Unit/Ml Insuln.Pen) 0 unit SC ACHS [facility]; Protocol Last Admin: 09/07/20 06:34 Dose: Not Given Documented by: Ipratropium [place] (Ipratropium 0.5 Mg/2.5 Ml Solution) 0.5 mg INHALATION Q4H.RT [facility] Last Admin: 09/07/20 07:06 Dose: 0.5 mg Documented by: Lisinopril (Zestril) 5 mg PO DAILY [facility] Last Admin: 09/07/20 08:16 Dose: 5 mg Documented by: Methylprednisolone (Methylprednisolone 40 Mg/Ml Vial) 40 mg IV Q12 [facility] Last Admin: 09/07/20 08:16 Dose: 40 mg Documented by: Metoprolol Tartrate (Metoprolol Tartrate 50 Mg Tablet) 50 mg PO BID [facility] Last Admin: 09/07/20 08:15 Dose: 50 mg Documented by: Ondansetron HCl (Zofran) 4 mg IV Q8H PRN PRN PRN Reason: NAUSEA/VOMITING Senna/Docusate Sodium (Senokot-S, Shaye-Colace) 2 tablet PO BID PRN PRN PRN Reason: Constipation Sodium Chloride () 10 - 40 ml IV UD PRN PRN Reason: SALINE FLUSH Last Admin: 09/07/20 08:27 Dose: 10 ml Documented by: Zolpidem Tartrate (Ambien (Generic)) 5 mg PO QHS PRN PRN PRN Reason: INSOMNIA Medical Necessity - Tobacco Use Smoking Status: Former smoker Tobacco Use: Cigarettes Assessment/Plan All Active Problems Atrial flutter with rapid ventricular response (Acute) Congestive heart failure (CHF) (Acute) RECOMMENDATIONS: 1. Consider weaning steroid and diuretic therapy 2. Continue empiric BiPAP therapy with sleep. Increase tidal volume target to 450 cc 3. Okay to avoid albuterol given RVR 4. Walking oximetry prior to discharge 5. Outpatient complete PFT for quantification and clarification of lung function IMPRESSIONS: 1. Acute on chronic hypoxic respiratory insufficiency secondary to a flutter with RVR Patient's rate is better controlled compared to previous. Chest x-ray did show some cephalization. Echocardiogram is not suggestive of diastolic dysfunction, but patient does have left atrial enlargement. Rate is much better controlled today. Patient unable to tolerate BiPAP overnight. Unclear if continue diuresis will be helpful as patient appears to be euvolemic. Will transition to prednisone therapy 2. Suspected MOMO Unclear if patient went into a flutter secondary to uncontrolled sleep apnea. Will place patient on empiric nocturnal BiPAP therapy. Patient does have an elevated bicarbonate, but it is unclear if this is secondary to obesity hypoventilation syndrome. This will be very difficult to assess while on supplemental oxygen. Patient is not currently on narcotics to explain hypoventilation. Patient would benefit from an outpatient polysomnogram. Unclear if patient's air hunger is secondary to low tidal volume on AVAPS. This will be increased to 450 cc. 3. Hypertension/hyperlipidemia/type 2 diabetes mellitus/tobacco dependence/obesity Complicates care, management, recovery and prognosis. Continue with current therapy. We will have to watch blood sugars given lack of metformin and concomitant steroid therapy. Defer p.o. rate control to cardiology Inpatient E&M: [id number] [facility] Hosp L2
[2020-09-07] MEDS: Insulin Lispro 100 UNIT/ML INSULN.PEN SC ×2 (11:24→21:12)
[2020-09-07] MEDS: predniSONE 20 MG Tablet 40 MG PO (11:25)
[2020-09-07 11:36] LABS: Bedside Glucose 248 mg/dL (70-110)
[2020-09-07] MEDS: guaiFENesin Dm 10 ML UDC PO ×2 (13:18→19:49)
--- NOTE | 2020-09-07 15:05 | PCM.PN.HOSP ---
<Andreas Burden PA - Last Filed: 09/07/20 15:05> Patient Problems: Active and Suspected Problems Atrial flutter with rapid ventricular response (Acute) Congestive heart failure (CHF) (Acute) Reason for Visit: SOB Subjective: Ongoing SOB at rest, and cough with green sputum. Denies fever/chills. No Chest pain. No nausea/vomiting/diarrhea. Pt very tearful. Vitals/I&O's: Vital Signs Temp Pulse Resp BP Pulse Ox 97.8 F 92 18 110/75 93 09/07/20 12:07 09/07/20 13:58 09/07/20 12:07 09/07/20 12:07 09/07/20 12:07 Oxygen Flow Rate (L/min) 4 Oxygen Delivery Method Nasal Cannula Weight: 238 lb 1.588 oz Body Mass Index (BMI) 41.1 Intake and Output for Last 24 Hours 09/05/20 09/06/20 09/07/20 23:59 23:59 23:59 Intake Total 1214.67 / 1217.17 1620.0 / 1620.0 Output Total 0 / 0 0 / 0 Balance 1214.67 / 1217.17 1620.0 / 1620.0 General: Alert, Oriented x3, Cooperative HEENT: Atraumatic, PERRLA, EOMI, Normocephalic Neck: Supple, No JVD, Negative Carotid Bruits Lungs: Diminished, Rales, Wheezes Cardiovascular: Regular rate, No murmurs Abdomen: Bowel Sounds Present, Soft, Non Tender Extremities: No edema, Capillary Refill Less than 3 Seconds Skin: No rashes, No breakdown Musculoskeletal: No Tenderness to Palpation of Joints or Extremities Neurological: Cranial nerves II-XII grossly intact Psych/Mental Status: Depressed - tearful, Alert and oriented to time, place, person, mood and affect Laboratory Results 09/06/20 16:12: POC Glucose 190 H 09/06/20 22:11: POC Glucose 147 H 09/07/20 06:08: Sodium 137, Potassium 4.5, Chloride 100, Carbon Dioxide 34.0 H, Anion Gap 3 L, BUN 47 H, Creatinine 1.24 H, Estim Creat Clear Calc 38.02, Est GFR (MDRD) Af Amer 55 L, Est GFR (MDRD) Non-Af 46 L, BUN/Creatinine Ratio 37.9 H, Glucose 160 H, Calcium 8.8 09/07/20 06:32: POC Glucose 155 H 09/07/20 11:23: POC Glucose 248 H Current Medications Acetaminophen (Tylenol) 650 mg PO Q6H PRN PRN PRN Reason: Pain Score 1-10/Temp > 100.7 F Last Admin: 09/07/20 06:37 Dose: 650 mg Documented by: Apixaban (Apixaban 5 Mg Tablet) 5 mg PO BID [facility] Last Admin: 09/07/20 08:15 Dose: 5 mg Documented by: Atorvastatin Calcium (Lipitor) 20 mg PO QHS [facility] Last Admin: 09/06/20 22:13 Dose: 20 mg Documented by: Diltiazem HCl (Diltiazem Cd 180 Mg Capsule) 360 mg PO DAILY [facility] Last Admin: 09/07/20 08:15 Dose: 360 mg Documented by: Guaifenesin (Guaifenesin Dm 10 Ml Udc) 10 ml PO Q6H PRN PRN PRN Reason: COUGH Last Admin: 09/07/20 13:18 Dose: 10 ml Documented by: Insulin Human Lispro (Insulin Lispro 100 Unit/Ml Insuln.Pen) 0 unit SC ACHS [facility]; Protocol Last Admin: 09/07/20 11:24 Dose: 3 units Documented by: Ipratropium [place] (Ipratropium 0.5 Mg/2.5 Ml Solution) 0.5 mg INHALATION Q4H.RT [facility] Last Admin: 09/07/20 15:03 Dose: 0.5 mg Documented by: Lisinopril (Zestril) 5 mg PO DAILY [facility] Last Admin: 09/07/20 08:16 Dose: 5 mg Documented by: Metoprolol Tartrate (Metoprolol Tartrate 50 Mg Tablet) 50 mg PO BID [facility] Last Admin: 09/07/20 08:15 Dose: 50 mg Documented by: Ondansetron HCl (Zofran) 4 mg IV Q8H PRN PRN PRN Reason: NAUSEA/VOMITING Prednisone (Prednisone 20 Mg Tablet) 40 mg PO DAILY@0800 [facility] Last Admin: 09/07/20 11:25 Dose: 40 mg Documented by: Senna/Docusate Sodium (Senokot-S, Shaye-Colace) 2 tablet PO BID PRN PRN PRN Reason: Constipation Sodium Chloride () 10 - 40 ml IV UD PRN PRN Reason: SALINE FLUSH Last Admin: 09/07/20 08:27 Dose: 10 ml Documented by: Zolpidem Tartrate (Ambien (Generic)) 5 mg PO QHS PRN PRN PRN Reason: INSOMNIA STROKE Vital Signs/Narrative: Vital Signs Temp Pulse Resp BP Pulse Ox 09/07/20 13:58 92 09/07/20 12:07 97.8 F 60 18 110/75 93 Medical Necessity - Tobacco Use Smoking Status: Former smoker Tobacco Use: Cigarettes Assessment/Plan All Active Problems Atrial flutter with rapid ventricular response (Acute) Congestive heart failure (CHF) (Acute) 1. Acute on chronic hypoxic respiratory failure secondary to COPD exacerbation-continue steroids, aerosol therapy. Pulmonary medicine following. BiPAP at night. She remains on 4 L/min oxygen via nasal cannula. No fever or leukocytosis. CO2 mildly elevated. Her baseline oxygen use is 3 to 4 L/min continuously. Patient had previously stated that she was not using it all the time. 2. Atrial fibrillation with rapid ventricular response-rate is improved. Continue Eliquis, Cardizem, metoprolol. Pressure is well controlled. She has been cardioverted in the past. 3. Acute on chronic diastolic congestive heart failure-resolved. Off Lasix. Echo with EF of 65%, RVSP 32 mmHg, mildly enlarged left atrium. Initial chest x-ray with mild degree of vascular congestion and mildly elevated BNP. Troponin negative x3. 4. Hypertension - well controlled. 5. Hyperlipidemia - statin 6. Diabetes mellitus type 2 with obesity-A1c 5.8 demonstrating good control. Metformin is held, continue sliding scale insulin. 7. Nicotine abuse-supposedly quit 2 weeks ago. It is essential that she continue to remain completely abstinent from nicotine products and avoid all smoke exposure. 8. Suspected sleep apnea-we discussed her need for sleep study as an outpatient. DVT prophylaxis: Dana SKAGGS planning: Walking pulse ox tomorrow morning. This patient was seen by Andreas Burden PA-C under the supervision of Doctor Elie. <Beata Delgadillo - Last Filed: 09/07/20 15:35> Vitals/I&O's: Vital Signs Temp Pulse Resp BP Pulse Ox 97.8 F 92 18 110/75 93 09/07/20 12:07 09/07/20 13:58 09/07/20 12:07 09/07/20 12:07 09/07/20 12:07 Oxygen Flow Rate (L/min) 4 Oxygen Delivery Method Nasal Cannula Weight: 108 kg Body Mass Index (BMI) 41.1 Intake and Output for Last 24 Hours 09/05/20 09/06/20 09/07/20 23:59 23:59 23:59 Intake Total 1214.67 / 1217.17 1620.0 / 1620.0 Output Total 0 / 0 0 / 0 Balance 1214.67 / 1217.17 1620.0 / 1620.0 Laboratory Results 09/06/20 16:12: POC Glucose 190 H 09/06/20 22:11: POC Glucose 147 H 09/07/20 06:08: Sodium 137, Potassium 4.5, Chloride 100, Carbon Dioxide 34.0 H, Anion Gap 3 L, BUN 47 H, Creatinine 1.24 H, Estim Creat Clear Calc 38.02, Est GFR (MDRD) Af Amer 55 L, Est GFR (MDRD) Non-Af 46 L, BUN/Creatinine Ratio 37.9 H, Glucose 160 H, Calcium 8.8 09/07/20 06:32: POC Glucose 155 H 09/07/20 11:23: POC Glucose 248 H Current Medications Acetaminophen (Tylenol) 650 mg PO Q6H PRN PRN PRN Reason: Pain Score 1-10/Temp > 100.7 F Last Admin: 09/07/20 06:37 Dose: 650 mg Documented by: Apixaban (Apixaban 5 Mg Tablet) 5 mg PO BID [facility] Last Admin: 09/07/20 08:15 Dose: 5 mg Documented by: Atorvastatin Calcium (Lipitor) 20 mg PO QHS [facility] Last Admin: 09/06/20 22:13 Dose: 20 mg Documented by: Diltiazem HCl (Diltiazem Cd 180 Mg Capsule) 360 mg PO DAILY [facility] Last Admin: 09/07/20 08:15 Dose: 360 mg Documented by: Guaifenesin (Guaifenesin Dm 10 Ml Udc) 10 ml PO Q6H PRN PRN PRN Reason: COUGH Last Admin: 09/07/20 13:18 Dose: 10 ml Documented by: Insulin Human Lispro (Insulin Lispro 100 Unit/Ml Insuln.Pen) 0 unit SC ACHS [facility]; Protocol Last Admin: 09/07/20 11:24 Dose: 3 units Documented by: Ipratropium [place] (Ipratropium 0.5 Mg/2.5 Ml Solution) 0.5 mg INHALATION Q4H.RT [facility] Last Admin: 09/07/20 15:03 Dose: 0.5 mg Documented by: Metoprolol Tartrate (Metoprolol Tartrate 50 Mg Tablet) 50 mg PO BID [facility] Last Admin: 09/07/20 08:15 Dose: 50 mg Documented by: Ondansetron HCl (Zofran) 4 mg IV Q8H PRN PRN PRN Reason: NAUSEA/VOMITING Prednisone (Prednisone 20 Mg Tablet) 40 mg PO DAILY@0800 [facility] Last Admin: 09/07/20 11:25 Dose: 40 mg Documented by: Senna/Docusate Sodium (Senokot-S, Shaye-Colace) 2 tablet PO BID PRN PRN PRN Reason: Constipation Sodium Chloride () 10 - 40 ml IV UD PRN PRN Reason: SALINE FLUSH Last Admin: 09/07/20 08:27 Dose: 10 ml Documented by: Zolpidem Tartrate (Ambien (Generic)) 5 mg PO QHS PRN PRN PRN Reason: INSOMNIA STROKE Vital Signs/Narrative: Vital Signs Temp Pulse Resp BP Pulse Ox 09/07/20 13:58 92 09/07/20 12:07 97.8 F 60 18 110/75 93 Assessment/Plan This patient was seen in conjunction with KAYLAH Pereira. I have independently interviewed and examined the patient and reviewed pertinent historical, laboratory, and other data. Please refer to KAYLAH Pereira note for his patient's presentation, findings, and recommendations. I have reviewed and his note and concur with his documentation Patient was seen and examined. Her HR is now controlled. She denied any fever or chills. Vitals were reviewed -stable Physical Exam: Gen: Mildly dyspneic, not pale, not jaundiced, alert oriented x3, on 4 L of oxygen CVS:HS I +II, regular, no murmurs RESP: Decreased air entry, audible and expiratory wheezes GI: BS present and normal, nontender, no palpable organs EXT: Bilateral pedal edema +1 Labs reviewed: ASSESSMENT: 1. A flutter with RVR 2. Acute on chronic diastolic CHF exacerbation, EF 65% 3. Acute COPD exacerbation 4. Hypertension 5. Type II DM 6. Nicotine dependence, advised to quit 7. Morbid obesity Meds reviewed Plan: Continue with oral Cardizem Continue on metoprolol oral bid Continue off Lasix and lisinopril Continue on ipratropium scheduled inhalation Continue on insulin sliding scale Stable discharge in a.m. Inpatient E&M: 42433 Subs Hosp L2
[2020-09-07 17:30] LABS: Bedside Glucose 142 mg/dL (70-110)
[2020-09-07] MEDS: Atorvastatin Calcium 20 MG Tablet PO (21:13)
[2020-09-07 22:21] LABS: Bedside Glucose 260 mg/dL (70-110)
[2020-09-08] VITALS (19 sets, daily range): BP systolic 111–121; BP diastolic 54–98; PULSE 73–147; RESP 12–21; TEMP 36.2–37.1; O2SAT 90–99
--- NOTE | 2020-09-08 03:52 | CPS ---
Pt asleep, aerosol not given at 0300
[2020-09-08 06:37] LABS: Absolute Neutrophil Count 4.8 X10^3/uL (2.0-7.7); Hematocrit 41.1 % (37-47); Lymphocyte % 8.8 % (19-41); Mean Corp Hgb Conc 31.6 g/dL (32-36); Mean Corpuscular Hgb 30.6 pg (27.0-32.0); Mean Corpuscular Volume 96.7 fL (81-99); Mean Platelet Vol. 9.9 fl (6.2-12.0); Monocyte# 0.34 X10^3/uL; NRBC Flagged by Analyzer 0 % (0-5); Neutrophil # 4.82 X10^3/uL (2.7-7.7); POSITIVE DIFFERENTIAL YES; Platelet Count 286 K/mm3 (150-450); RBC Distribution Width CV 15.7 % (11.6-14.6); RBC Distribution Width SD 55.8 fl (35.1-43.9); Red Blood Count 4.25 M/mm3 (4.2-5.4); White Blood Count 5.7 K/mm3 (4.4-11.0)
[2020-09-08 06:43] LABS: Differential Indicated SCAN CRITERIA MET
[2020-09-08 06:54] LABS: Anion Gap 0 (5-15); BUN 51 mg/dL (7-18); BUN/Creat Ratio 40.5 RATIO (10-20); Calcium,Total 9.3 mg/dL (8.5-10.1); Chloride 101 mmol/L (98-107); Creatinine, Serum 1.26 mg/dL (0.55-1.02); EST Glomerular Filtration Rate 45 mL/min (>60); Est Glom Filt Rate - Afr Amer 54 mL/min (>60); Estimated Creatinine Clearance 37.41 ml/min; Glucose 144 mg/dL (74-106); Sodium Level 138 mmol/L (136-145)
[2020-09-08 06:55] LABS: Bedside Glucose 132 mg/dL (70-110)
[2020-09-08 06:55] LABS: Differential Comment SCANNED
[2020-09-08] MEDS: Ipratropium 0.5 MG/2.5 ML SOLUTION INHALATION ×6 (07:48→23:35)
--- NOTE | 2020-09-08 08:27 | PCM.PN.PUL ---
Patient Problems: Active and Suspected Problems Atrial flutter with rapid ventricular response (Acute) Congestive heart failure (CHF) (Acute) Subjective: Patient did okay overnight. Patient was able to tolerate BiPAP on the increased target tidal volume. Patient states that overall she feels globally fatigued, but notices no change in her respiratory status. - Physical Exam Vitals/I&O's: Vital Signs Temp Pulse Resp BP Pulse Ox 36.2 C L 102 H 18 121/98 H 92 09/08/20 06:50 09/08/20 06:50 09/08/20 06:50 09/08/20 06:50 09/08/20 06:50 Oxygen Flow Rate (L/min) 4 Oxygen Delivery Method Nasal Cannula Weight: 108.4 kg Body Mass Index (BMI) 41.1 Intake and Output for Last 24 Hours 09/06/20 09/07/20 09/08/20 23:59 23:59 23:59 Intake Total 1620.0 / 1620.0 240 / 240 100 / 100 Output Total 0 / 0 0 / 0 Balance 1620.0 / 1620.0 240 / 240 100 / 100 General: Alert, Oriented x3, Cooperative, No apparent distress, - - Flat affect. Morbidly obese. HEENT: Atraumatic, PERRLA, EOMI, Normocephalic, - - No scleral icterus or injection noted Oral: Moist Mucosa, No Gingival or Mucosal Lesions/ Ulcerations Neck: Supple, No JVD, No Nodes, Trachea Midline Lungs: No rhonchi, No wheeze, No rales, Diminished, - - Symmetric expansion. Cardiovascular: Normal S1, Normal S2, No murmurs, No rub noted, No Gallop, Tachycardic Abdomen: Bowel Sounds Present, Soft, Non Tender, Non-Distended, Obese Extremities: No cyanosis, Clubbing, Edema Skin: No rashes, No breakdown Musculoskeletal: No Tenderness to Palpation of Joints or Extremities Lymphatic: No Cervical, Supraclavicular, or Inguinal Adenopathy Neurological: Cranial nerves II-XII grossly intact, Neuro grossly intact, Motor Exam 5/5 strength throughout Psych/Mental Status: Appropriate, Flat Affect Laboratory Results 09/07/20 11:23: POC Glucose 248 H 09/07/20 17:23: POC Glucose 142 H 09/07/20 21:10: POC Glucose 260 H 09/08/20 06:30: Sodium 138, Potassium 5.0, Chloride 101, Carbon Dioxide 37.0 H, Anion Gap 0 L, BUN 51 H, Creatinine 1.26 H, Estim Creat Clear Calc 37.41, Est GFR (MDRD) Af Amer 54 L, Est GFR (MDRD) Non-Af 45 L, BUN/Creatinine Ratio 40.5 H, Glucose 144 H, Calcium 9.3 09/08/20 06:30: WBC 5.7, RBC 4.25, Hgb 13.0, Hct 41.1, MCV 96.7, MCH 30.6, MCHC 31.6 L D, RDW Std Deviation 55.8 H, RDW Coeff of Stephanie 15.7 H, Plt Count 286, MPV 9.9, Immature Gran % (Auto) 0.200, Neut % (Auto) 85.0 H, Lymph % (Auto) 8.8 L, [place] % (Auto) 6.0, Eos % (Auto) 0.0, Baso % (Auto) 0.0, Absolute Neuts (auto) 4.8, Absolute Lymphs (auto) 0.50 L, Nucleated RBC % 0, Differential Comment SCANNED 09/08/20 06:44: POC Glucose 132 H Current Medications Acetaminophen (Tylenol) 650 mg PO Q6H PRN PRN PRN Reason: Pain Score 1-10/Temp > 100.7 F Last Admin: 09/07/20 06:37 Dose: 650 mg Documented by: Apixaban (Apixaban 5 Mg Tablet) 5 mg PO BID [facility] Last Admin: 09/07/20 21:12 Dose: 5 mg Documented by: Atorvastatin Calcium (Lipitor) 20 mg PO QHS [facility] Last Admin: 09/07/20 21:13 Dose: 20 mg Documented by: Diltiazem HCl (Diltiazem Cd 180 Mg Capsule) 360 mg PO DAILY [facility] Last Admin: 09/07/20 08:15 Dose: 360 mg Documented by: Guaifenesin (Guaifenesin Dm 10 Ml Udc) 10 ml PO Q6H PRN PRN PRN Reason: COUGH Last Admin: 09/07/20 19:49 Dose: 10 ml Documented by: Insulin Human Lispro (Insulin Lispro 100 Unit/Ml Insuln.Pen) 0 unit SC [facility]; Protocol Last Admin: 09/08/20 06:44 Dose: Not Given Documented by: Ipratropium [place] (Ipratropium 0.5 Mg/2.5 Ml Solution) 0.5 mg INHALATION Q4H.RT [facility] Last Admin: 09/07/20 23:29 Dose: 0.5 mg Documented by: Metoprolol Tartrate (Metoprolol Tartrate 50 Mg Tablet) 50 mg PO BID [facility] Last Admin: 09/07/20 21:13 Dose: 50 mg Documented by: Ondansetron HCl (Zofran) 4 mg IV Q8H PRN PRN PRN Reason: NAUSEA/VOMITING Prednisone (Prednisone 20 Mg Tablet) 40 mg PO DAILY@0800 [facility] Last Admin: 09/07/20 11:25 Dose: 40 mg Documented by: Senna/Docusate Sodium (Senokot-S, Shaye-Colace) 2 tablet PO BID PRN PRN PRN Reason: Constipation Sodium Chloride () 10 - 40 ml IV UD PRN PRN Reason: SALINE FLUSH Last Admin: 09/07/20 08:27 Dose: 10 ml Documented by: Zolpidem Tartrate (Ambien (Generic)) 5 mg PO QHS PRN PRN PRN Reason: INSOMNIA Medical Necessity - Tobacco Use Smoking Status: Former smoker Tobacco Use: Cigarettes Assessment/Plan All Active Problems Atrial flutter with rapid ventricular response (Acute) Congestive heart failure (CHF) (Acute) RECOMMENDATIONS: 1. Wean steroids over the next 12 to 14 days 2. Continue empiric BiPAP therapy with sleep. Keep tidal volume target at 450 cc 3. Okay to avoid albuterol given RVR 4. Walking oximetry prior to discharge 5. Outpatient complete PFT for quantification and clarification of lung function 6. Obtain CT without contrast if requires 6 L or more with ambulation IMPRESSIONS: 1. Acute on chronic hypoxic respiratory insufficiency secondary to a flutter with RVR Patient's rate is better controlled compared to previous. Chest x-ray did show some cephalization. Echocardiogram is not suggestive of diastolic dysfunction, but patient does have left atrial enlargement. Rate is much better controlled today. Patient able to tolerate BiPAP overnight. Unclear if continue diuresis will be helpful as patient appears to be euvolemic. Prednisone therapy can weaned over the next 12 to 14 days. Obtain walking oximetry today. If patient requires more than 6 L nasal cannula, could consider obtaining a CT without contrast to evaluate for other possible etiologies. Unclear baseline, but if patient has significant emphysematous changes, protracted course may be necessary if patient can be discharged if requiring 6 L or less with ambulation. This may require a change in home concentrator as she reports her top flow is 5 L/min. 2. Suspected MOMO Unclear if patient went into a flutter secondary to uncontrolled sleep apnea. Will place patient on empiric nocturnal BiPAP therapy. Patient does have an elevated bicarbonate, but it is unclear if this is secondary to obesity hypoventilation syndrome. This will be very difficult to assess while on supplemental oxygen. Patient is not currently on narcotics to explain hypoventilation. Patient would benefit from an outpatient polysomnogram. Patient did tolerate increase in AVAPS to 450 cc well. 3. Hypertension/hyperlipidemia/type 2 diabetes mellitus/tobacco dependence/obesity Complicates care, management, recovery and prognosis. Continue with current therapy. We will have to watch blood sugars given lack of metformin and concomitant steroid therapy. Defer p.o. rate control to cardiology Inpatient E&M: 21425 [facility] Hosp L2
[2020-09-08] MEDS: dilTIAZem CD 180 MG Capsule 360 MG PO (09:03)
[2020-09-08] MEDS: predniSONE 20 MG Tablet 40 MG PO (09:03)
[2020-09-08] MEDS: APIXABAN 5 MG TABLET PO ×2 (09:03→20:38)
[2020-09-08] MEDS: Metoprolol Tartrate 50 MG Tablet PO ×2 (09:03→20:38)
[2020-09-08] MEDS: Insulin Lispro 100 UNIT/ML INSULN.PEN SC ×3 (11:13→20:38)
[2020-09-08 11:56] LABS: Bedside Glucose 156 mg/dL (70-110)
--- NOTE | 2020-09-08 12:58 | PCM.PN.CARD ---
Subjectve: Patient subjectively feels better. Her heart rate was a little elevated this morning but is now controlled. Objective: Vital Signs Temp Pulse Resp BP Pulse Ox 98.4 F 116 H 18 115/72 94 09/08/20 10:33 09/08/20 10:43 09/08/20 10:33 09/08/20 10:33 09/08/20 10:33 Oxygen Flow Rate (L/min) 4 Oxygen Delivery Method Nasal Cannula Weight: 238 lb 15.697 oz Body Mass Index (BMI) 41.1 Intake and Output for Last 24 Hours 09/06/20 09/07/20 09/08/20 23:59 23:59 23:59 Intake Total 1620.0 / 1620.0 240 / 240 340 / 340 Output Total 0 / 0 0 / 0 Balance 1620.0 / 1620.0 240 / 240 340 / 340 General: Awake, Alert, Oriented x 3 HEENT: Atraumatic Oral: Moist Mucosa Neck: Supple Lungs: Expiratory Wheezes-Ward Cardiovascular: Irregular Rhythm Extremities: No edema Skin: No Rashes Psych/Mental Status: Appropriate 09/08/20 06:30: Sodium 138, Potassium 5.0, Chloride 101, Carbon Dioxide 37.0 H, Anion Gap 0 L, BUN 51 H, Creatinine 1.26 H, Est GFR (MDRD) Af Amer 54 L, Est GFR (MDRD) Non-Af 45 L, BUN/Creatinine Ratio 40.5 H, Glucose 144 H, Calcium 9.3 09/08/20 06:30: WBC 5.7, RBC 4.25, Hgb 13.0, Hct 41.1, MCV 96.7, MCH 30.6, MCHC 31.6 L D, Plt Count 286, MPV 9.9, Immature Gran % (Auto) 0.200, Neut % (Auto) 85.0 H, Lymph % (Auto) 8.8 L, [place] % (Auto) 6.0, Eos % (Auto) 0.0, Baso % (Auto) 0.0, Absolute Neuts (auto) 4.8, Nucleated RBC % 0 Rhythm: EKG: ECHO: Stress Test: Cardiac Cath: PCI: CT Surgery: Holter monitor: EPS: PPM: CXR: Chest CT Scan: Medical Necessity - Tobacco Use Smoking Status: Former smoker Tobacco Use: Cigarettes Assessment/Plan 1. Atrial flutter: Patient has history of prior flutter that was treated with cardioversion and since then she has not had a recurrence till now. Patient did not feel her heart racing when she was having rapid ventricular response. She feels better now that her heart rate is under better control. She was inquiring about cardioversion. Continue Cardizem and metoprolol at current doses. Her lisinopril has been discontinued. If required we can go up on the metoprolol. She will need to be on anticoagulation for at least 1 month prior to cardioversion. She can be started on Eliquis. 2. CHF: Could be related to the a flutter with rapid ventricular response. She has preserved EF. Patient preferred not to be on maintenance Lasix if she could stay off it.
--- NOTE | 2020-09-08 14:38 | CASEMGMT ---
Pt has been independent in the room during admission and therapy is not ordered. Green sheet on chart for increased home oxygen need. Pt's current order is for 3-4liters continuous and pt to be tested on 4liters at rest and with ambulation. Jacquelyn CHAVES CM
--- NOTE | 2020-09-08 14:42 | PN_ITS ---
<Andreas Burden PA - Last Filed: 09/08/20 14:42> Patient Problems: Active and Suspected Problems Atrial flutter with rapid ventricular response (Acute) Congestive heart failure (CHF) (Acute) Reason for Visit: chf, copd Subjective: Pt resting comfortably in bed NAD. Still dyspneic at rest and worse with exertion, however she is maintaining adequate sats at her baseline o2 level of 4. She has no fever/chills. She has a nonproductive cough. She has no CP or palp. Her rate was rapid this AM however improved after receiving her oral medications. Vitals/I&O's: Vital Signs Temp Pulse Resp BP Pulse Ox 98.4 F 116 H 18 115/72 94 09/08/20 10:33 09/08/20 10:43 09/08/20 10:33 09/08/20 10:33 09/08/20 10:33 Oxygen Flow Rate (L/min) 4 Oxygen Delivery Method Nasal Cannula Weight: 238 lb 15.697 oz Body Mass Index (BMI) 41.1 Intake and Output for Last 24 Hours 09/06/20 09/07/20 09/08/20 23:59 23:59 23:59 Intake Total 1620.0 / 1620.0 240 / 240 340 / 340 Output Total 0 / 0 0 / 0 Balance 1620.0 / 1620.0 240 / 240 340 / 340 General: Alert, Oriented x3, Cooperative HEENT: Atraumatic, PERRLA, EOMI, Normocephalic Neck: Supple, No JVD, Negative Carotid Bruits Lungs: Diminished, Wheezes Cardiovascular: No murmurs, Irregular Rate Abdomen: Bowel Sounds Present, Soft, Non Tender, Obese Extremities: No edema, Capillary Refill Less than 3 Seconds Skin: No rashes, No breakdown Musculoskeletal: No Tenderness to Palpation of Joints or Extremities Neurological: Cranial nerves II-XII grossly intact Psych/Mental Status: Normal Affect, Appropriate Laboratory Results 09/07/20 17:23: POC Glucose 142 H 09/07/20 21:10: POC Glucose 260 H 09/08/20 06:30: Sodium 138, Potassium 5.0, Chloride 101, Carbon Dioxide 37.0 H, Anion Gap 0 L, BUN 51 H, Creatinine 1.26 H, Estim Creat Clear Calc 37.41, Est GFR (MDRD) Af Amer 54 L, Est GFR (MDRD) Non-Af 45 L, BUN/Creatinine Ratio 40.5 H , Glucose 144 H, Calcium 9.3 09/08/20 06:30: WBC 5.7, RBC 4.25, Hgb 13.0, Hct 41.1, MCV 96.7, MCH 30.6, MCHC 31.6 L D, RDW Std Deviation 55.8 H, RDW Coeff of Stephanie 15.7 H, Plt Count 286, MPV 9.9, Immature Gran % (Auto) 0.200, Neut % (Auto) 85.0 H, Lymph % (Auto) 8.8 L, [place] % (Auto) 6.0, Eos % (Auto) 0.0, Baso % (Auto) 0.0, Absolute Neuts (auto) 4.8, Absolute Lymphs (auto) 0.50 L, Nucleated RBC % 0, Differential Comment SCANNED 09/08/20 06:44: POC Glucose 132 H 09/08/20 11:11: POC Glucose 156 H Current Medications Acetaminophen (Tylenol) 650 mg PO Q6H PRN PRN PRN Reason: Pain Score 1-10/Temp > 100.7 F Last Admin: 09/07/20 06:37 Dose: 650 mg Documented by: Apixaban (Apixaban 5 Mg Tablet) 5 mg PO BID [facility] Last Admin: 09/08/20 09:03 Dose: 5 mg Documented by: Atorvastatin Calcium (Lipitor) 20 mg PO QHS [facility] Last Admin: 09/07/20 21:13 Dose: 20 mg Documented by: Diltiazem HCl (Diltiazem Cd 180 Mg Capsule) 360 mg PO DAILY [facility] Last Admin: 09/08/20 09:03 Dose: 360 mg Documented by: Guaifenesin (Guaifenesin Dm 10 Ml Udc) 10 ml PO Q6H PRN PRN PRN Reason: COUGH Last Admin: 09/07/20 19:49 Dose: 10 ml Documented by: Insulin Human Lispro (Insulin Lispro 100 Unit/Ml Insuln.Pen) 0 unit SC ACHS [facility]; Protocol Last Admin: 09/08/20 11:13 Dose: 1 units Documented by: Ipratropium [place] (Ipratropium 0.5 Mg/2.5 Ml Solution) 0.5 mg INHALATION Q4H.RT [facility] Last Admin: 10/16/20 12:08 Dose: 0.5 mg Documented by: Metoprolol Tartrate (Metoprolol Tartrate 50 Mg Tablet) 50 mg PO BID [facility] Last Admin: 09/08/20 09:03 Dose: 50 mg Documented by: Ondansetron HCl (Zofran) 4 mg IV Q8H PRN PRN PRN Reason: NAUSEA/VOMITING Prednisone (Prednisone 20 Mg Tablet) 40 mg PO DAILY@0800 [facility] Last Admin: 09/08/20 09:03 Dose: 40 mg Documented by: Senna/Docusate Sodium (Senokot-S, Shaye-Colace) 2 tablet PO BID PRN PRN PRN Reason: Constipation Sodium Chloride () 10 - 40 ml IV UD PRN PRN Reason: SALINE FLUSH Last Admin: 09/07/20 08:27 Dose: 10 ml Documented by: Zolpidem Tartrate (Ambien (Generic)) 5 mg PO QHS PRN PRN PRN Reason: INSOMNIA STROKE Vital Signs/Narrative: Vital Signs Pulse 09/08/20 10:43 116 H Medical Necessity - Tobacco Use Smoking Status: Former smoker Tobacco Use: Cigarettes Assessment/Plan All Active Problems Atrial flutter with rapid ventricular response (Acute) Congestive heart failure (CHF) (Acute) 1. Acute on chronic hypoxic respiratory failure secondary to COPD exacerbation- continue steroids, aerosol therapy. Pulmonary medicine following. BiPAP at night. She remains on 4 L/min oxygen via nasal cannula. No fever or leukocytosis. CO2 mildly elevated. Her baseline oxygen use is 3 to 4 L/min continuously. Patient had previously stated that she was not using it all the time. Continue Avaps at night. 2. Atrial fibrillation with rapid ventricular response-tachy this AM but improved with oral meds. rate stable in the 70s now. discussed with cardiology - no change at this point. Continue Eliquis, Cardizem, metoprolol. Pressure is well controlled. She has been cardioverted in the past. TSH low but t3/4 normal. 3. Acute on chronic diastolic congestive heart failure - resolved. Off Lasix due to rising CO2 for several days. Echo with EF of 65%, RVSP 32 mmHg, mildly enlarged left atrium. Initial chest x-ray with mild degree of vascular congestion and mildly elevated BNP. Troponin negative x3. 4. Hypertension - well controlled. 5. Hyperlipidemia - statin 6. Diabetes mellitus type 2 with obesity-A1c 5.8 demonstrating good control. Metformin is held, continue sliding scale insulin. 7. Nicotine abuse-supposedly quit 2 weeks ago. It is essential that she continue to remain completely abstinent from nicotine products and avoid all smoke exposure. 8. Suspected sleep apnea - we again discussed her need for sleep study as an outpatient. DVT prophylaxis: Dana SKAGGS planning: Walking pulse ox tomorrow morning. This patient was seen by Andreas Burden PA-C under the supervision of Doctor Elie. <Beata Delgadillo - Last Filed: 09/08/20 16:41> Vitals/I&O's: Vital Signs Temp Pulse Resp BP Pulse Ox 98.8 F 88 18 111/70 92 09/08/20 16:16 09/08/20 16:16 09/08/20 16:16 09/08/20 16:16 09/08/20 16:16 Oxygen Flow Rate (L/min) 4 Oxygen Delivery Method Nasal Cannula Weight: 108.4 kg Body Mass Index (BMI) 41.1 Intake and Output for Last 24 Hours 09/06/20 09/07/20 09/08/20 23:59 23:59 23:59 Intake Total 1620.0 / 1620.0 240 / 240 340 / 340 Output Total 0 / 0 0 / 0 Balance 1620.0 / 1620.0 240 / 240 340 / 340 Laboratory Results 09/07/20 17:23: POC Glucose 142 H 09/07/20 21:10: POC Glucose 260 H 09/08/20 06:30: Sodium 138, Potassium 5.0, Chloride 101, Carbon Dioxide 37.0 H, Anion Gap 0 L, BUN 51 H, Creatinine 1.26 H, Estim Creat Clear Calc 37.41, Est GFR (MDRD) Af Amer 54 L, Est GFR (MDRD) Non-Af 45 L, BUN/Creatinine Ratio 40.5 H , Glucose 144 H, Calcium 9.3 09/08/20 06:30: WBC 5.7, RBC 4.25, Hgb 13.0, Hct 41.1, MCV 96.7, MCH 30.6, MCHC 31.6 L D, RDW Std Deviation 55.8 H, RDW Coeff of Stephanie 15.7 H, Plt Count 286, MPV 9.9, Immature Gran % (Auto) 0.200, Neut % (Auto) 85.0 H, Lymph % (Auto) 8.8 L, [place] % (Auto) 6.0, Eos % (Auto) 0.0, Baso % (Auto) 0.0, Absolute Neuts (auto) 4.8, Absolute Lymphs (auto) 0.50 L, Nucleated RBC % 0, Differential Comment SCANNED 09/08/20 06:44: POC Glucose 132 H 09/08/20 11:11: POC Glucose 156 H 09/08/20 16:15: POC Glucose 233 H Current Medications Acetaminophen (Tylenol) 650 mg PO Q6H PRN PRN PRN Reason: Pain Score 1-10/Temp > 100.7 F Last Admin: 09/07/20 06:37 Dose: 650 mg Documented by: Apixaban (Apixaban 5 Mg Tablet) 5 mg PO BID [facility] Last Admin: 09/08/20 09:03 Dose: 5 mg Documented by: Atorvastatin Calcium (Lipitor) 20 mg PO QHS [facility] Last Admin: 09/07/20 21:13 Dose: 20 mg Documented by: Diltiazem HCl (Diltiazem Cd 180 Mg Capsule) 360 mg PO DAILY [facility] Last Admin: 09/08/20 09:03 Dose: 360 mg Documented by: Guaifenesin (Guaifenesin Dm 10 Ml Udc) 10 ml PO Q6H PRN PRN PRN Reason: COUGH Last Admin: 09/07/20 19:49 Dose: 10 ml Documented by: Insulin Human Lispro (Insulin Lispro 100 Unit/Ml Insuln.Pen) 0 unit SC ACHS [facility]; Protocol Last Admin: 09/08/20 16:17 Dose: 3 units Documented by: Ipratropium [place] (Ipratropium 0.5 Mg/2.5 Ml Solution) 0.5 mg INHALATION Q4H.RT [facility] Last Admin: 09/08/20 16:03 Dose: 0.5 mg Documented by: Metoprolol Tartrate (Metoprolol Tartrate 50 Mg Tablet) 50 mg PO BID [facility] Last Admin: 09/08/20 09:03 Dose: 50 mg Documented by: Ondansetron HCl (Zofran) 4 mg IV Q8H PRN PRN PRN Reason: NAUSEA/VOMITING Prednisone (Prednisone 20 Mg Tablet) 40 mg PO DAILY@0800 [facility] Last Admin: 09/08/20 09:03 Dose: 40 mg Documented by: Senna/Docusate Sodium (Senokot-S, Shaye-Colace) 2 tablet PO BID PRN PRN PRN Reason: Constipation Sodium Chloride () 10 - 40 ml IV UD PRN PRN Reason: SALINE FLUSH Last Admin: 09/07/20 08:27 Dose: 10 ml Documented by: Zolpidem Tartrate (Ambien (Generic)) 5 mg PO QHS PRN PRN PRN Reason: INSOMNIA STROKE Vital Signs/Narrative: Vital Signs Temp Pulse Resp BP Pulse Ox 09/08/20 16:16 98.8 F 88 18 111/70 92 09/08/20 14:59 75 Assessment/Plan This patient was seen in conjunction with KAYLAH Pereira. I have independently interviewed and examined the patient and reviewed pertinent historical, laboratory, and other data. Please refer to KAYLAH Pereira note for his patient's presentation, findings, and recommendations. I have reviewed and his note and concur with his documentation Patient was seen and examined. Heart rate has been fluctuating, patient remains wheezy Vitals were reviewed -stable Physical Exam: Gen: Mildly dyspneic, not pale, not jaundiced, alert oriented x3, on 4 L of oxygen CVS:HS I +II, regular, no murmurs RESP: Decreased air entry, audible and expiratory wheezes GI: BS present and normal, nontender, no palpable organs EXT: Bilateral pedal edema +1 Labs reviewed: ASSESSMENT: 1. A flutter with RVR 2. Acute on chronic diastolic CHF exacerbation, EF 65% 3. Acute COPD exacerbation 4. Hypertension 5. Type II DM 6. Nicotine dependence, advised to quit 7. Morbid obesity Meds reviewed Plan: Continue with oral Cardizem, metoprolol oral bid Continue on ipratropium scheduled inhalation Continue on insulin sliding scale Possible discharge in a.m. Inpatient E&M: 23755 Subs Hosp L2
[2020-09-08 16:30] LABS: Bedside Glucose 233 mg/dL (70-110)
--- NOTE | 2020-09-08 16:32 | CASEMGMT ---
Pt to be sent home on Eliquis at discharge and med e-scribed to [facility] Diana previously. Call to [facility] and per tech, med is $419 at this time and she states 'pt may be in the donut hole.' [facility] provided with Eliquis 30 day free trial card info at this time and states med is now free for this month. Pt/daughter updated on all at this time, voice understanding and all questions answered. Green sheet on chart for increased home oxygen need. Jacquelyn CHAVES CM
[2020-09-08] MEDS: Atorvastatin Calcium 20 MG Tablet PO (20:37)
[2020-09-08 21:52] LABS: Bedside Glucose 240 mg/dL (70-110)
[2020-09-09] VITALS (17 sets, daily range): BP systolic 104–128; BP diastolic 60–85; PULSE 73–147; RESP 12–20; TEMP 36.4–36.9; O2SAT 83–95
[2020-09-09] MEDS: dilTIAZem CD 180 MG Capsule 360 MG PO (00:46)
--- NOTE | 2020-09-09 03:48 | CPS ---
3am aerosol tx not given, pt sleeping on AVAPS
[2020-09-09] MEDS: Ipratropium 0.5 MG/2.5 ML SOLUTION INHALATION ×4 (07:11→19:47)
[2020-09-09 07:27] LABS: Anion Gap 1 (5-15); BUN 52 mg/dL (7-18); BUN/Creat Ratio 44.4 RATIO (10-20); Calcium,Total 8.9 mg/dL (8.5-10.1); Chloride 100 mmol/L (98-107); Creatinine, Serum 1.17 mg/dL (0.55-1.02); EST Glomerular Filtration Rate 49 mL/min (>60); Est Glom Filt Rate - Afr Amer 59 mL/min (>60); Estimated Creatinine Clearance 40.29 ml/min; Glucose 94 mg/dL (74-106); Potassium 4.6 mmol/L (3.5-5.1); Sodium Level 138 mmol/L (136-145)
--- NOTE | 2020-09-09 08:13 | DCINST_ITS ---
- Discharge Diagnoses Current Active Problems: Current Active and Chronic Problems Hyperlipidemia (Chronic) Type 2 diabetes mellitus (Chronic) Atrial flutter with rapid ventricular response (Acute) Congestive heart failure (CHF) (Acute) Asthma (Chronic) COPD (chronic obstructive pulmonary disease) with acute bronchitis (Chronic) Atrial flutter (Chronic) Tobacco dependence (Chronic) Reason(s) for Visit for Discharge Instructions: Shortness of breath, acute COPD exacerbation, A. fib with RVR You will use the following diet at home:: Calorie/Carbohydrate Controlled (specify 1200, 1400, etc) - 1800, Cardiac Your food should be the consistency of: Regular Your liquids should be the consistency of: Regular/Thin Discharge Activity: Return to Normal Activity Additional Instructions: Continue to use her oxygen as prescribed. You are strongly advised to avoid smoking. Continue to use your incentive spirometer and Acapella for aggressive pulmonary toileting. Complete your steroid as pres cribed. Follow-up with cardiology and pulmonology within 2 weeks. Allergies/Adverse Reactions: Allergies aspirin Allergy (Verified 09/04/20 14:21) Hives codeine Adverse Reaction (Verified 09/04/20 14:21) Nausea Medications to take at Discharge Albuterol Inhaler [Ventolin Hfa] 1 - 2 puff INHALATION Q4H PRN PRN #1 inhaler 03/10/15 Ascorbic Acid [Fruit C-500] 1,000 mg PO DAILY 09/04/20 Atorvastatin Calcium [Lipitor] 20 mg PO QHS 09/04/20 Metformin HCl [Metformin HCl ER] 500 mg PO DAILY 09/04/20 Apixaban [Eliquis] 5 mg PO BID #60 tab 09/08/20 Diltiazem CD [Cardizem CD] 360 mg PO DAILY 30 Days #60 cap 09/09/20 Metoprolol Tartrate [Lopressor (beta mynor)] 50 mg PO BID 30 Days #60 tab 09/09/20 Prednisone 10 mg PO DAILY #30 tab 09/09/20 The following prescriptions were given: Diltiazem CD [Cardizem CD] 360 mg PO DAILY 30 Days #60 cap Transmission Status: Pending to [id number] Apixaban [Eliquis] 5 mg PO BID #60 tab Transmission Status: Received by [id number] Metoprolol Tartrate [Lopressor (beta mynor)] 50 mg PO BID 30 Days #60 tab Transmission Status: Pending to [id number] Prednisone 10 mg PO DAILY #30 tab Transmission Status: Pending to [id number] Primary Care Physician: Meena Garcia MD [Primary Care Provider] - Please follow up with your Primary Care Physician in: within 1-2 weeks Test Results: Test results from this visit will be discussed in further detail at your follow- up appointment, if applicable. Please Follow Up With: Adryan Arndt MD When: within 2 weeks Please Follow Up With: Cl Barrow MD When: within 2 weeks Proposed Discharge Date: 09/09/20
--- NOTE | 2020-09-09 08:16 | PCM.DC.SUM ---
Discharge Date and Diagnosis - Problem List Patient Problems: Active and Suspected Problems Atrial flutter with rapid ventricular response (Acute) Congestive heart failure (CHF) (Acute) Date of Admission: 09/04/20 Date of Discharge: 09/09/20 - Primary Discharge Diagnosis Acute Problems: Active Problems Atrial flutter with rapid ventricular response (Acute) Congestive heart failure (CHF) (Acute) - Secondary Discharge Diagnosis Chronic Problems: Chronic Problems Hyperlipidemia (Chronic) Type 2 diabetes mellitus (Chronic) Asthma (Chronic) COPD (chronic obstructive pulmonary disease) with acute bronchitis (Chronic) Atrial flutter (Chronic) Tobacco dependence (Chronic) Hospital Course and Treatment Summary of Care Provided: The patient is a 69 year old F [] Patient Problems: Active and Suspected Problems Atrial flutter with rapid ventricular response (Acute) Congestive heart failure (CHF) (Acute) - Physical Exam Vitals/I&O's: Vital Signs Temp Pulse Resp BP Pulse Ox 97.5 F L 97 16 106/74 95 09/09/20 03:30 09/09/20 07:00 09/09/20 03:30 09/09/20 03:30 09/09/20 03:30 Oxygen Flow Rate (L/min) 4 Oxygen Delivery Method Nasal Cannula Weight: 108.4 kg Body Mass Index (BMI) 41.1 Intake and Output for Last 24 Hours 09/07/20 09/08/20 09/09/20 23:59 23:59 23:59 Intake Total 240 / 240 740 / 1140 400 / 400 Output Total 0 / 0 Balance 240 / 240 740 / 1140 400 / 400 Laboratory Results 09/08/20 11:11: POC Glucose 156 H 09/08/20 16:15: POC Glucose 233 H 09/08/20 20:34: POC Glucose 240 H 09/09/20 06:15: Sodium 138, Potassium 4.6, Chloride 100, Carbon Dioxide 37.0 H, Anion Gap 1 L, BUN 52 H, Creatinine 1.17 H, Estim Creat Clear Calc 40.29, Est GFR (MDRD) Af Amer 59 L, Est GFR (MDRD) Non-Af 49 L, BUN/Creatinine Ratio 44.4 H, Glucose 94, Calcium 8.9 Current Medications Acetaminophen (Tylenol) 650 mg PO Q6H PRN PRN PRN Reason: Pain Score 1-10/Temp > 100.7 F Last Admin: 09/07/20 06:37 Dose: 650 mg Documented by: Apixaban (Apixaban 5 Mg Tablet) 5 mg PO BID [facility] Last Admin: 09/08/20 20:38 Dose: 5 mg Documented by: Atorvastatin Calcium (Lipitor) 20 mg PO QHS [facility] Last Admin: 09/08/20 20:37 Dose: 20 mg Documented by: Diltiazem HCl (Diltiazem Cd 180 Mg Capsule) 360 mg PO DAILY [facility] Last Admin: 09/09/20 00:46 Dose: 360 mg Documented by: Guaifenesin (Guaifenesin Dm 10 Ml Udc) 10 ml PO Q6H PRN PRN PRN Reason: COUGH Last Admin: 09/07/20 19:49 Dose: 10 ml Documented by: Insulin Human Lispro (Insulin Lispro 100 Unit/Ml Insuln.Pen) 0 unit SC [facility]; Protocol Last Admin: 09/09/20 07:01 Dose: Not Given Documented by: Ipratropium [place] (Ipratropium 0.5 Mg/2.5 Ml Solution) 0.5 mg INHALATION Q4H.RT [facility] Last Admin: 09/09/20 07:11 Dose: 0.5 mg Documented by: Metoprolol Tartrate (Metoprolol Tartrate 50 Mg Tablet) 50 mg PO BID [facility] Last Admin: 09/08/20 20:38 Dose: 50 mg Documented by: Ondansetron HCl (Zofran) 4 mg IV Q8H PRN PRN PRN Reason: NAUSEA/VOMITING Prednisone (Prednisone 20 Mg Tablet) 40 mg PO DAILY@0800 [facility] Last Admin: 09/08/20 09:03 Dose: 40 mg Documented by: Senna/Docusate Sodium (Senokot-S, Shaye-Colace) 2 tablet PO BID PRN PRN PRN Reason: Constipation Sodium Chloride () 10 - 40 ml IV UD PRN PRN Reason: SALINE FLUSH Last Admin: 09/07/20 08:27 Dose: 10 ml Documented by: Zolpidem Tartrate (Ambien (Generic)) 5 mg PO QHS PRN PRN PRN Reason: INSOMNIA Discharge Activity: Return to Normal Activity Home Medications: Medications to take at Discharge Albuterol Inhaler [Ventolin Hfa] 1 - 2 puff INHALATION Q4H PRN PRN #1 inhaler 03/10/15 Ascorbic Acid [Fruit C-500] 1,000 mg PO DAILY 09/04/20 Atorvastatin Calcium [Lipitor] 20 mg PO QHS 09/04/20 Metformin HCl [Metformin HCl ER] 500 mg PO DAILY 09/04/20 Apixaban [Eliquis] 5 mg PO BID #60 tab 09/08/20 Diltiazem CD [Cardizem CD] 360 mg PO DAILY 30 Days #60 cap 09/09/20 Metoprolol Tartrate [Lopressor (beta mynor)] 50 mg PO BID 30 Days #60 tab 09/09/20 Prednisone 10 mg PO DAILY #30 tab 09/09/20 Following Prescriptions Were Given to Patient: Diltiazem CD [Cardizem CD] 360 mg PO DAILY 30 Days #60 cap Transmission Status: [id number] Apixaban [Eliquis] 5 mg PO BID #60 tab Transmission Status: Received by [id number] Metoprolol Tartrate [Lopressor (beta mynor)] 50 mg PO BID 30 Days #60 tab Transmission Status: Pending [id number] Prednisone 10 mg PO DAILY #30 tab Transmission Status: P[id number] Primary Care Physician: Meena Garcia MD [Primary Care Provider] - Please follow up with your Primary Care Physician in: within 1-2 weeks Please Follow Up With: Adryan Arndt MD When: within 2 weeks Please Follow Up With: Cl Barrow MD When: within 2 weeks Medical Necessity - Tobacco Use Smoking Status: Former smoker Tobacco Use: Cigarettes
--- NOTE | 2020-09-09 09:15 | PN_ITS ---
Patient Problems: Active and Suspected Problems Atrial flutter with rapid ventricular response (Acute) Congestive heart failure (CHF) (Acute) Subjective: Patient did okay overnight. Patient continues to have periodic episodes of tachycardia, but has remained stable on her 4 L nasal cannula. Patient has not received many as needed medications secondary to marginal blood pressure, but does appear to respond to early doses of medication. Patient is not reporting any chest pain, abdominal pain, nausea or vomiting. Patient has not had any significant cough reported. - Physical Exam Vitals/I&O's: Vital Signs Temp Pulse Resp BP Pulse Ox 37.0 C 105 H 18 103/58 L 93 09/09/20 09:00 09/09/20 09:00 09/09/20 09:00 09/09/20 09:00 09/09/20 09:00 Oxygen Flow Rate (L/min) 4 Oxygen Delivery Method Nasal Cannula Weight: 108.4 kg Body Mass Index (BMI) 41.1 Intake and Output for Last 24 Hours 09/07/20 09/08/20 09/09/20 23:59 23:59 23:59 Intake Total 240 / 240 740 / 1140 400 / 400 Output Total 0 / 0 Balance 240 / 240 740 / 1140 400 / 400 General: Alert, Oriented x3, Cooperative, No apparent distress, - - Anxious. Morbidly obese. Speaking in full sentences. HEENT: Atraumatic, PERRLA, EOMI, Normocephalic, - - No scleral icterus or injection noted. Nasal cannula in place. Oral: Moist Mucosa, No Gingival or Mucosal Lesions/ Ulcerations Neck: Supple, No JVD, No Nodes, Trachea Midline Lungs: No rhonchi, No rales, Diminished, Wheezes - Sporadic Cardiovascular: Normal S1, Normal S2, No murmurs, No rub noted, No Gallop, Tachycardic Abdomen: Bowel Sounds Present, Soft, Non Tender, Non-Distended, Obese Extremities: No cyanosis, Capillary Refill Less than 3 Seconds, Clubbing, Edema Skin: No rashes, No breakdown Musculoskeletal: No Tenderness to Palpation of Joints or Extremities Lymphatic: No Cervical, Supraclavicular, or Inguinal Adenopathy Neurological: Cranial nerves II-XII grossly intact, Neuro grossly intact, Motor Exam 5/5 strength throughout Psych/Mental Status: Anxious Laboratory Results 09/08/20 11:11: POC Glucose 156 H 09/08/20 16:15: POC Glucose 233 H 09/08/20 20:34: POC Glucose 240 H 09/09/20 06:15: Sodium 138, Potassium 4.6, Chloride 100, Carbon Dioxide 37.0 H, Anion Gap 1 L, BUN 52 H, Creatinine 1.17 H, Estim Creat Clear Calc 40.29, Est GFR (MDRD) Af Amer 59 L, Est GFR (MDRD) Non-Af 49 L, BUN/Creatinine Ratio 44.4 H , Glucose 94, Calcium 8.9 Current Medications Acetaminophen (Tylenol) 650 mg PO Q6H PRN PRN PRN Reason: Pain Score 1-10/Temp > 100.7 F Last Admin: 09/07/20 06:37 Dose: 650 mg Documented by: Apixaban (Apixaban 5 Mg Tablet) 5 mg PO BID [facility] Last Admin: 09/08/20 20:38 Dose: 5 mg Documented by: Atorvastatin Calcium (Lipitor) 20 mg PO QHS [facility] Last Admin: 09/08/20 20:37 Dose: 20 mg Documented by: Diltiazem HCl (Diltiazem Cd 180 Mg Capsule) 360 mg PO DAILY [facility] Last Admin: 09/09/20 00:46 Dose: 360 mg Documented by: Guaifenesin (Guaifenesin Dm 10 Ml Udc) 10 ml PO Q6H PRN PRN PRN Reason: COUGH Last Admin: 09/07/20 19:49 Dose: 10 ml Documented by: Insulin Human Lispro (Insulin Lispro 100 Unit/Ml Insuln.Pen) 0 unit SC [facility]; Protocol Last Admin: 09/09/20 07:01 Dose: Not Given Documented by: Ipratropium [place] (Ipratropium 0.5 Mg/2.5 Ml Solution) 0.5 mg INHALATION Q4H.RT [facility] Last Admin: 09/09/20 07:11 Dose: 0.5 mg Documented by: Metoprolol Tartrate (Metoprolol Tartrate 50 Mg Tablet) 50 mg PO BID [facility] Last Admin: 09/08/20 20:38 Dose: 50 mg Documented by: Ondansetron HCl (Zofran) 4 mg IV Q8H PRN PRN PRN Reason: NAUSEA/VOMITING Prednisone (Prednisone 20 Mg Tablet) 40 mg PO DAILY@0800 [facility] Last Admin: 09/08/20 09:03 Dose: 40 mg Documented by: Senna/Docusate Sodium (Senokot-S, Shaye-Colace) 2 tablet PO BID PRN PRN PRN Reason: Constipation Sodium Chloride () 10 - 40 ml IV UD PRN PRN Reason: SALINE FLUSH Last Admin: 09/07/20 08:27 Dose: 10 ml Documented by: Zolpidem Tartrate (Ambien (Generic)) 5 mg PO QHS PRN PRN PRN Reason: INSOMNIA Medical Necessity - Tobacco Use Smoking Status: Former smoker Tobacco Use: Cigarettes Assessment/Plan All Active Problems Atrial flutter with rapid ventricular response (Acute) Congestive heart failure (CHF) (Acute) RECOMMENDATIONS: 1. Wean steroids over the next 12 to 14 days 2. Continue empiric BiPAP therapy with sleep while hospitalized. Arrange for sleep study on discharge 3. Okay to avoid albuterol given RVR 4. Walking oximetry prior to discharge 5. Outpatient complete PFT for quantification and clarification of lung function 6. Follow-up with nurse practitioner 2 weeks after discharge for arrangement of outpatient testing IMPRESSIONS: 1. Acute on chronic hypoxic respiratory insufficiency secondary to a flutter with RVR Patient's rate is better controlled compared to previous. Chest x-ray did show some cephalization. Echocardiogram is not suggestive of diastolic dysfunction, but patient does have left atrial enlargement. Rate is much better controlled today. Patient able to tolerate BiPAP overnight. Unclear if continue diuresis will be helpful as patient appears to be euvolemic. Prednisone therapy can weaned over the next 12 to 14 days. Obtain walking oximetry prior to discharge. If patient requires more than 6 L nasal cannula, could consider obtaining a CT without contrast to evaluate for other possible etiologies. Unclear baseline, but if patient has significant emphysematous changes, protracted course may be necessary if patient can be discharged if requiring 6 L or less with ambulation. Patient does have clubbing on exam indicating probable long-term pulmonary insufficiency. This may require a change in home concentrator as she reports her top flow is 5 L/min. 2. Suspected MOMO Unclear if patient went into a flutter secondary to uncontrolled sleep apnea. Will place patient on empiric nocturnal BiPAP therapy while in the hospital. Patient does have an elevated bicarbonate, but it is unclear if this is secondary to obesity hypoventilation syndrome. This will be very difficult to assess while on supplemental oxygen. Patient is not currently on narcotics to explain hypoventilation. Patient would benefit from an outpatient polysomnogram. Patient did tolerate increase in AVAPS to 450 cc well. 3. Hypertension/hyperlipidemia/type 2 diabetes mellitus/tobacco dependence/obesity Complicates care, management, recovery and prognosis. Continue with current therapy. We will have to watch blood sugars given lack of metformin and concomitant steroid therapy. Defer p.o. rate control to cardiology Inpatient E&M: [id number] [facility] Hosp L2
[2020-09-09] MEDS: predniSONE 20 MG Tablet 40 MG PO (09:17)
[2020-09-09] MEDS: APIXABAN 5 MG TABLET PO ×2 (09:17→21:43)
[2020-09-09] MEDS: Metoprolol Tartrate 50 MG Tablet PO ×2 (09:18→21:43)
[2020-09-09 10:12] LABS: Bedside Glucose 103 mg/dL (70-110)
[2020-09-09] MEDS: Insulin Lispro 100 UNIT/ML INSULN.PEN SC ×3 (11:25→21:43)
[2020-09-09 11:56] LABS: Bedside Glucose 212 mg/dL (70-110)
--- NOTE | 2020-09-09 12:23 | PN.CARD_ITS ---
Subjectve: 69-year-old white female with recurrence of atrial flutter and fast ventricular rate as well as acute on chronic diastolic failure of the left ventricle. At the moment patient is on calcium mynor and beta-mynor. High-grade will go up to 110 times at rest. She denies any chest pain or shortness of breath laying in bed. She has been on Eliquis. Systolic blood pressure on the low side of normal Objective: Vital Signs Temp Pulse Resp BP Pulse Ox 98.6 F 75 19 H 103/58 L 93 09/09/20 09:00 09/09/20 10:57 09/09/20 10:57 09/09/20 09:18 09/09/20 09:00 Oxygen Flow Rate (L/min) 4 Oxygen Delivery Method Nasal Cannula Weight: 238 lb 15.697 oz Body Mass Index (BMI) 41.1 Intake and Output for Last 24 Hours 09/07/20 09/08/20 09/09/20 23:59 23:59 23:59 Intake Total 240 / 240 740 / 1140 400 / 400 Output Total 0 / 0 Balance 240 / 240 740 / 1140 400 / 400 General: Alert, Oriented x 3, No Acute Distress HEENT: Atraumatic Neck: Supple Lungs: Clear to auscultation Cardiovascular: Irregular Rhythm, No Murmurs Abdomen: Soft, Non Tender, - - Obese abdomen Neurological: No Focal Motor or Sensory Deficit 09/09/20 06:15: Sodium 138, Potassium 4.6, Chloride 100, Carbon Dioxide 37.0 H, Anion Gap 1 L, BUN 52 H, Creatinine 1.17 H, Est GFR (MDRD) Af Amer 59 L, Est GFR (MDRD) Non-Af 49 L, BUN/Creatinine Ratio 44.4 H, Glucose 94, Calcium 8.9 Rhythm: EKG: ECHO: Stress Test: Cardiac Cath: PCI: CT Surgery: Holter monitor: EPS: PPM: CXR: Chest CT Scan: Medical Necessity - Tobacco Use Smoking Status: Former smoker Tobacco Use: Cigarettes Assessment/Plan Atrial flutter with symptoms, still intermittent fast ventricular rate at 110. Will give the patient digoxin 0.5 mg IV 1 dose. Systolic blood pressure is on the low side of normal. Patient has been on calcium mynor and beta-mynor at this point. We will try to improve rate control. Cardioversion in the future after adequate durations of oral anticoagulation Acute on chronic diastolic dysfunction of the left ventricle
[2020-09-09] MEDS: Digoxin 250 MCG/ML Ampul 500 MCG IV ×2 (13:44→18:28)
[2020-09-09] MEDS: 0.9% Saline Lock 10 ML Syringe IV ×3 (13:44→18:27)
--- NOTE | 2020-09-09 14:09 | NURSING ---
Patient pulse ox at rest was 88% on 4L O2 via NC. Patient up to RR and back to bed and pulse ox at 83% with activity. Increased O2 to 6L while at rest and saturation up to 89%. hospital medical biller and MD informed. Discharge cancelled and patient notify.
--- NOTE | 2020-09-09 14:57 | PCM.PN.HOSP ---
Patient Problems: Active and Suspected Problems Atrial flutter with rapid ventricular response (Acute) Congestive heart failure (CHF) (Acute) Reason for Visit: Follow-up on A. fib with RVR/acute COPD exacerbation/ Subjective: Patient complains of feeling short of breath. Her oxygen saturation dropped to 88% on 4 L, she went to the bathroom and alcohol was 283 L. Oxygen was bumped up to 6 L from 4 L. Patient is feeling anxious about discharge. Objective: Physical exam: General: Alert, Oriented x3, Cooperative, appears slightly tachypneic, anxious HEENT: Atraumatic, PERRLA, EOMI, Normocephalic Neck: Supple, No JVD, Negative Carotid Bruits Lungs: Diminished, no wheezes on exam Cardiovascular: No murmurs, Irregular Rate Abdomen: Bowel Sounds Present, Soft, Non Tender, Obese Extremities: No edema, Capillary Refill Less than 3 Seconds Skin: No rashes, No breakdown Musculoskeletal: No Tenderness to Palpation of Joints or Extremities Neurological: Cranial nerves II-XII grossly intact Psych/Mental Status: Normal Affect, Appropriate Vitals/I&O's: Vital Signs Temp Pulse Resp BP Pulse Ox 98.4 F 73 18 104/60 95 09/09/20 13:40 09/09/20 14:38 09/09/20 14:38 09/09/20 13:44 09/09/20 13:40 Oxygen Flow Rate (L/min) [ 6 AMBULATION with Oxygen] Oxygen Flow Rate (L/min) 6 Oxygen Delivery Method Nasal Cannula Weight: 108.4 kg Body Mass Index (BMI) 41.1 Intake and Output for Last 24 Hours 09/07/20 09/08/20 09/09/20 23:59 23:59 23:59 Intake Total 240 / 240 740 / 1140 640 / 640 Output Total 0 / 0 Balance 240 / 240 740 / 1140 640 / 640 Laboratory Results 09/08/20 16:15: POC Glucose 233 H 09/08/20 20:34: POC Glucose 240 H 09/09/20 06:15: Sodium 138, Potassium 4.6, Chloride 100, Carbon Dioxide 37.0 H, Anion Gap 1 L, BUN 52 H, Creatinine 1.17 H, Estim Creat Clear Calc 40.29, Est GFR (MDRD) Af Amer 59 L, Est GFR (MDRD) Non-Af 49 L, BUN/Creatinine Ratio 44.4 H, Glucose 94, Calcium 8.9 09/09/20 07:00: POC Glucose 103 09/09/20 11:24: POC Glucose 212 H Current Medications Acetaminophen (Tylenol) 650 mg PO Q6H PRN PRN PRN Reason: Pain Score 1-10/Temp > 100.7 F Last Admin: 09/07/20 06:37 Dose: 650 mg Documented by: Apixaban (Apixaban 5 Mg Tablet) 5 mg PO BID [facility] Last Admin: 09/09/20 09:17 Dose: 5 mg Documented by: Atorvastatin Calcium (Lipitor) 20 mg PO QHS [facility] Last Admin: 09/08/20 20:37 Dose: 20 mg Documented by: Diltiazem HCl (Diltiazem Cd 180 Mg Capsule) 360 mg PO DAILY [facility] Last Admin: 09/09/20 00:46 Dose: 360 mg Documented by: Guaifenesin (Guaifenesin Dm 10 Ml Udc) 10 ml PO Q6H PRN PRN PRN Reason: COUGH Last Admin: 09/07/20 19:49 Dose: 10 ml Documented by: Insulin Human Lispro (Insulin Lispro 100 Unit/Ml Insuln.Pen) 0 unit SC ACHS [facility]; Protocol Last Admin: 09/09/20 11:25 Dose: 2 units Documented by: Ipratropium [place] (Ipratropium 0.5 Mg/2.5 Ml Solution) 0.5 mg INHALATION Q4H.RT [facility] Last Admin: 09/09/20 14:37 Dose: 0.5 mg Documented by: Metoprolol Tartrate (Metoprolol Tartrate 50 Mg Tablet) 50 mg PO BID [facility] Last Admin: 09/09/20 09:18 Dose: 50 mg Documented by: Ondansetron HCl (Zofran) 4 mg IV Q8H PRN PRN PRN Reason: NAUSEA/VOMITING Prednisone (Prednisone 20 Mg Tablet) 40 mg PO DAILY@0800 [facility] Last Admin: 09/09/20 09:17 Dose: 40 mg Documented by: Senna/Docusate Sodium (Senokot-S, Shaye-Colace) 2 tablet PO BID PRN PRN PRN Reason: Constipation Sodium Chloride () 10 - 40 ml IV UD PRN PRN Reason: SALINE FLUSH Last Admin: 09/09/20 13:44 Dose: 10 ml Documented by: Zolpidem Tartrate (Ambien (Generic)) 5 mg PO QHS PRN PRN PRN Reason: INSOMNIA STROKE Vital Signs/Narrative: Vital Signs Temp Pulse Resp BP Pulse Ox Pulse Ox 09/09/20 14:38 73 18 09/09/20 13:44 144 H 104/60 09/09/20 13:40 98.4 F 144 H 18 104/60 95 09/09/20 12:30 83 89 Medical Necessity - Tobacco Use Smoking Status: Former smoker Tobacco Use: Cigarettes Assessment/Plan All Active Problems Atrial flutter with rapid ventricular response (Acute) Congestive heart failure (CHF) (Acute) 1. Acute chronic hypoxic respiratory failure, on 6 L of oxygen, patient is usually on 2 to 5 L of oxygen We will continue to wean off for SPO2 more than 92% 2. A flutter with RVR, heart rate fluctuates, but controlled for the most part, continue metoprolol and Cardizem and Eliis Cardiology following 2. Acute on chronic diastolic CHF exacerbation, EF 65%, off Lasix, will give Lasix 40 mg IV x1 today 3. Acute COPD exacerbation, on prednisone, ipratropium breathing treatments 4. Hypertension, controlled, continue on current home regimen 5. Type II DM, blood sugars are fairly controlled, Resume metformin, continue with insulin sliding scale 6. Nicotine dependence, advised to quit 7. Morbid obesity, BMI 41.0, lifestyle modification requested 8. DVT prophylaxis?on [facility] Inpatient E&M: [id number] Subs Hosp L2
[2020-09-09] MEDS: Furosemide 40 MG/4 ML Vial IV (16:57)
[2020-09-09 17:15] LABS: Bedside Glucose 243 mg/dL (70-110)
[2020-09-09] MEDS: Atorvastatin Calcium 20 MG Tablet PO (21:43)
[2020-09-09 23:41] LABS: Bedside Glucose 196 mg/dL (70-110)
[2020-09-10] VITALS (19 sets, daily range): BP systolic 114–135; BP diastolic 69–74; PULSE 62–140; RESP 16–18; TEMP 36.3–36.9; O2SAT 92–98
[2020-09-10] MEDS: Ipratropium 0.5 MG/2.5 ML SOLUTION INHALATION ×5 (02:37→23:22)
[2020-09-10] MEDS: Acetaminophen 325 MG Tablet 650 MG PO ×2 (03:41→22:13)
--- NOTE | 2020-09-10 04:05 | CPS ---
no aerosol tx at 11:30pm, pt refused, wanted to sleep
--- NOTE | 2020-09-10 05:32 | CPS ---
pt unable to tolerate bipap/AVAPS this evening
[2020-09-10 06:05] LABS: Absolute Lymphocyte Count 1.61 X10^3/uL (0.83-4.51); Basophil# 0.01 X10^3/uL; Basophil% 0.1 % (0-1); Hematocrit 43.2 % (37-47); Hemoglobin 13.4 g/dL (12.0-15.0); Lymphocyte # 1.61 X10^3/ul (4.0); Lymphocyte % 21.8 % (19-41); Mean Corpuscular Hgb 29.8 pg (27.0-32.0); Mean Platelet Vol. 10.2 fl (6.2-12.0); Monocyte# 0.73 X10^3/uL; Monocyte% 9.9 % (0-10); NRBC Flagged by Analyzer 0 % (0-5); Neutrophil # 5.01 X10^3/uL (2.7-7.7); Neutrophil % 67.8 % (47-70); Platelet Count 272 K/mm3 (150-450); RBC Distribution Width CV 14.9 % (11.6-14.6); RBC Distribution Width SD 52.8 fl (35.1-43.9); White Blood Count 7.4 K/mm3 (4.4-11.0)
[2020-09-10 06:24] LABS: ALB/GLOB Ratio 0.8 RATIO (0.9-2.4); AST(SGOT) 6 U/L (15-37); Alanine Aminotransfer ALT/SGPT 20 U/L (13-56); Albumin, Serum 2.8 g/dL (3.2-5.0); Alkaline Phosphatase 73 U/L (45-117); Anion Gap 0 (5-15); BUN 44 mg/dL (7-18); BUN/Creat Ratio 39.6 RATIO (10-20); Calcium,Total 8.6 mg/dL (8.5-10.1); Chloride 97 mmol/L (98-107); Creatinine, Serum 1.11 mg/dL (0.55-1.02); EST Glomerular Filtration Rate 52 mL/min (>60); Est Glom Filt Rate - Afr Amer 63 mL/min (>60); Estimated Creatinine Clearance 42.47 ml/min; Globulin 3.3 g/dL (2.2-4.2); Glucose 95 mg/dL (74-106); Protein, Total 6.1 g/dL (6.4-8.2); Sodium Level 137 mmol/L (136-145)
[2020-09-10 06:50] LABS: Bedside Glucose 78 mg/dL (70-110)
[2020-09-10] MEDS: APIXABAN 5 MG TABLET PO ×2 (08:32→22:08)
[2020-09-10] MEDS: metFORMIN (XR) 500 MG Tablet PO (08:32)
[2020-09-10] MEDS: Metoprolol Tartrate 50 MG Tablet PO ×2 (08:32→22:08)
[2020-09-10] MEDS: predniSONE 20 MG Tablet 40 MG PO (08:32)
[2020-09-10] MEDS: dilTIAZem CD 180 MG Capsule 360 MG PO (08:32)
--- NOTE | 2020-09-10 08:48 | EKG12_ITS ---
Test Reason : AM EKG Blood Pressure : / mmHG Vent. Rate : 092 BPM Atrial Rate : 300 BPM P-R Int : 000 ms QRS Dur : 132 ms QT Int : 382 ms P-R-T Axes : 248 016 225 degrees QTc Int : 472 ms Atrial flutter with variable A-V block Non-specific intra-ventricular conduction block Abnormal ECG Confirmed by RADHA HOLM, JULY ([id number]), purchasing expeditor ELLIOT LIMA ([id number]) on 09/12/2020 8:25:53 AM Referred By: BRANNON Confirmed By:JULY GARCIA MD
--- NOTE | 2020-09-10 09:27 | PCM.PN.PUL ---
Patient Problems: Active and Suspected Problems Atrial flutter with rapid ventricular response (Acute) Congestive heart failure (CHF) (Acute) Subjective: Patient did well overnight. Patient did have 2 episodes of tachycardia yesterday limiting ability to be discharged. Patient reports no significant respiratory complaints. Patient did have 1 productive cough with brown sputum, but states she has had some mild epistaxis associated with supplemental oxygen therapy. - Physical Exam Vitals/I&O's: Vital Signs Temp Pulse Resp BP Pulse Ox 36.8 C 95 18 123/69 H 96 09/10/20 08:30 09/10/20 08:32 09/10/20 08:30 09/10/20 08:32 09/10/20 08:30 Oxygen Flow Rate (L/min) [ 6 AMBULATION with Oxygen] Oxygen Flow Rate (L/min) 6 Oxygen Delivery Method Nasal Cannula Weight: 108.4 kg Body Mass Index (BMI) 41.1 Intake and Output for Last 24 Hours 09/08/20 09/09/20 09/10/20 23:59 23:59 23:59 Intake Total 740 / 1140 1100 / 1100 320 / 320 Output Total 0 / 0 Balance 740 / 1140 1100 / 1100 320 / 320 General: Alert, Oriented x3, Cooperative, No apparent distress, Well developed, Well nourished, - - Morbidly obese. Speaking in full sentences. HEENT: Atraumatic, PERRLA, EOMI, Normocephalic, - - No scleral icterus or injection noted. Supplemental oxygen in place. Oral: Moist Mucosa, No Gingival or Mucosal Lesions/ Ulcerations Neck: Supple, No JVD, No Nodes, Trachea Midline Lungs: No rhonchi, No rales, Diminished, Wheezes - Sporadic, - - Symmetric expansion Cardiovascular: Normal S1, Normal S2, No murmurs, Irregular Rate, No rub noted, No Gallop Abdomen: Bowel Sounds Present, Soft, Non Tender, Non-Distended, Obese Extremities: No clubbing, No cyanosis, Edema - Trace Skin: - - No change compared to previous Musculoskeletal: No Tenderness to Palpation of Joints or Extremities Lymphatic: No Cervical, Supraclavicular, or Inguinal Adenopathy Neurological: Cranial nerves II-XII grossly intact, Neuro grossly intact, Motor Exam 5/5 strength throughout Psych/Mental Status: Alert and oriented to time, place, person, mood and affect Laboratory Results 09/09/20 07:00: POC Glucose 103 09/09/20 11:24: POC Glucose 212 H 09/09/20 16:50: POC Glucose 243 H 09/09/20 21:42: POC Glucose 196 H 09/10/20 05:34: WBC 7.4, RBC 4.50, Hgb 13.4, Hct 43.2, MCV 96.0, MCH 29.8, MCHC 31.0 L, RDW Std Deviation 52.8 H, RDW Coeff of Stephanie 14.9 H, Plt Count 272, MPV 10.2, Immature Gran % (Auto) 0.400, Neut % (Auto) 67.8, Lymph % (Auto) 21.8, [place] % (Auto) 9.9, Eos % (Auto) 0.0, Baso % (Auto) 0.1, Absolute Neuts (auto) 5.0, Absolute Lymphs (auto) 1.61, Nucleated RBC % 0 09/10/20 05:34: Sodium 137, Potassium 4.0, Chloride 97 L, Carbon Dioxide 40.0 H, Anion Gap 0 L, BUN 44 H, Creatinine 1.11 H, Estim Creat Clear Calc 42.47, Est GFR (MDRD) Af Amer 63, Est GFR (MDRD) Non-Af 52 L, BUN/Creatinine Ratio 39.6 H, Glucose 95, Calcium 8.6, Total Bilirubin 0.70, AST 6 L, ALT 20, Alkaline Phosphatase 73, Total Protein 6.1 L, Albumin 2.8 L, Globulin 3.3, Albumin/Globulin Ratio 0.8 L 09/10/20 06:43: POC Glucose 78 Current Medications Acetaminophen (Tylenol) 650 mg PO Q6H PRN PRN PRN Reason: Pain Score 1-10/Temp > 100.7 F Last Admin: 09/10/20 03:41 Dose: 325 mg Documented by: Apixaban (Apixaban 5 Mg Tablet) 5 mg PO BID [facility] Last Admin: 09/10/20 08:32 Dose: 5 mg Documented by: Atorvastatin Calcium (Lipitor) 20 mg PO QHS [facility] Last Admin: 09/09/20 21:43 Dose: 20 mg Documented by: Diltiazem HCl (Diltiazem Cd 180 Mg Capsule) 360 mg PO DAILY [facility] Last Admin: 09/10/20 08:32 Dose: 360 mg Documented by: Guaifenesin (Guaifenesin Dm 10 Ml Udc) 10 ml PO Q6H PRN PRN PRN Reason: COUGH Last Admin: 09/07/20 19:49 Dose: 10 ml Documented by: Insulin Human Lispro (Insulin Lispro 100 Unit/Ml Insuln.Pen) 0 unit SC ACHS [facility]; Protocol Last Admin: 09/10/20 06:55 Dose: Not Given Documented by: Ipratropium [place] (Ipratropium 0.5 Mg/2.5 Ml Solution) 0.5 mg INHALATION Q4H.RT [facility] Last Admin: 09/10/20 07:23 Dose: 0.5 mg Documented by: Metformin HCl (Metformin (Xr) 500 Mg Tablet) 500 mg PO DAILYCM [facility] Last Admin: 09/10/20 08:32 Dose: 500 mg Documented by: Metoprolol Tartrate (Metoprolol Tartrate 50 Mg Tablet) 50 mg PO BID [facility] Last Admin: 09/10/20 08:32 Dose: 50 mg Documented by: Ondansetron HCl (Zofran) 4 mg IV Q8H PRN PRN PRN Reason: NAUSEA/VOMITING Prednisone (Prednisone 20 Mg Tablet) 40 mg PO DAILY@0800 [facility] Last Admin: 09/10/20 08:32 Dose: 40 mg Documented by: Senna/Docusate Sodium (Senokot-S, Shaye-Colace) 2 tablet PO BID PRN PRN PRN Reason: Constipation Sodium Chloride () 10 - 40 ml IV UD PRN PRN Reason: SALINE FLUSH Last Admin: 09/09/20 18:27 Dose: 10 ml Documented by: Zolpidem Tartrate (Ambien (Generic)) 5 mg PO QHS PRN PRN PRN Reason: INSOMNIA Medical Necessity - Tobacco Use Smoking Status: Former smoker Tobacco Use: Cigarettes Assessment/Plan All Active Problems Atrial flutter with rapid ventricular response (Acute) Congestive heart failure (CHF) (Acute) RECOMMENDATIONS: 1. Wean steroids over the next 12 to 14 days 2. Continue empiric BiPAP therapy with sleep while hospitalized. Arrange for sleep study on discharge 3. Okay to avoid albuterol given RVR. Defer to cardiology, but amiodarone may be an option for rate control 4. Walking oximetry prior to discharge 5. Outpatient complete PFT for quantification and clarification of lung function 6. Follow-up with nurse practitioner 2 weeks after discharge for arrangement of outpatient testing IMPRESSIONS: 1. Acute on chronic hypoxic respiratory insufficiency secondary to a flutter with RVR Patient's rate is better controlled compared to previous. Chest x-ray did show some cephalization. Echocardiogram is not suggestive of diastolic dysfunction, but patient does have left atrial enlargement. Rate is much better controlled today. Patient able to tolerate BiPAP overnight. Unclear if continue diuresis will be helpful as patient appears to be euvolemic. Prednisone therapy can weaned over the next 12 to 14 days. Obtain walking oximetry prior to discharge. If patient requires more than 6 L nasal cannula, could consider obtaining a CT without contrast to evaluate for other possible etiologies. Unclear baseline, but if patient has significant emphysematous changes, protracted course may be necessary if patient can be discharged if requiring 6 L or less with ambulation. Patient does have clubbing on exam indicating probable long-term pulmonary insufficiency. This may require a change in home concentrator as she reports her top flow is 5 L/min. Case management is aware. 2. Suspected MOMO Unclear if patient went into a flutter secondary to uncontrolled sleep apnea. Will place patient on empiric nocturnal BiPAP therapy while in the hospital. Patient does have an elevated bicarbonate, but it is unclear if this is secondary to obesity hypoventilation syndrome. This will be very difficult to assess while on supplemental oxygen. Patient is not currently on narcotics to explain hypoventilation. Patient would benefit from an outpatient polysomnogram. Patient did tolerate increase in AVAPS to 450 cc well. 3. Hypertension/hyperlipidemia/type 2 diabetes mellitus/tobacco dependence/obesity Complicates care, management, recovery and prognosis. Continue with current therapy. We will have to watch blood sugars given lack of metformin and concomitant steroid therapy. Defer p.o. rate control to cardiology. RVR continues to complicate respiratory status. Defer to cardiology. Inpatient E&M: 75425 Subs Hosp L2
[2020-09-10 11:20] LABS: Bedside Glucose 106 mg/dL (70-110)
[2020-09-10] MEDS: 0.9% Saline Lock 10 ML Syringe IV (11:20)
[2020-09-10] MEDS: Digoxin 250 MCG/ML Ampul IV (11:20)
--- NOTE | 2020-09-10 12:20 | PCM.PN.CARD ---
Subjectve: Intermittent fast ventricular rate up to the 40s with blood pressure 110 systolic. Further dose of digoxin loading was given. Ventricular rate is slower today. Objective: Vital Signs Temp Pulse Resp BP Pulse Ox 98.3 F 71 18 114/74 92 09/10/20 11:15 09/10/20 11:35 09/10/20 11:35 09/10/20 11:15 09/10/20 11:15 Oxygen Flow Rate (L/min) [ 6 AMBULATION with Oxygen] Oxygen Flow Rate (L/min) 4 Oxygen Delivery Method Nasal Cannula Weight: 238 lb 15.697 oz Body Mass Index (BMI) 41.1 Intake and Output for Last 24 Hours 09/08/20 09/09/20 09/10/20 23:59 23:59 23:59 Intake Total 740 / 1140 1100 / 1100 670 / 670 Output Total 0 / 0 Balance 740 / 1140 1100 / 1100 670 / 670 General: No Acute Distress HEENT: Atraumatic Neck: Supple Lungs: Clear to auscultation Cardiovascular: Irregular Rhythm, No Murmurs Abdomen: Bowel Sounds Present, Soft, Non Tender, No HSM, No Organomegaly Neurological: No Focal Motor or Sensory Deficit 09/10/20 05:34: WBC 7.4, RBC 4.50, Hgb 13.4, Hct 43.2, MCV 96.0, MCH 29.8, MCHC 31.0 L, Plt Count 272, MPV 10.2, Immature Gran % (Auto) 0.400, Neut % (Auto) 67.8, Lymph % (Auto) 21.8, [place] % (Auto) 9.9, Eos % (Auto) 0.0, Baso % (Auto) 0.1, Absolute Neuts (auto) 5.0, Nucleated RBC % 0 09/10/20 05:34: Sodium 137, Potassium 4.0, Chloride 97 L, Carbon Dioxide 40.0 H, Anion Gap 0 L, BUN 44 H, Creatinine 1.11 H, Est GFR (MDRD) Af Amer 63, Est GFR (MDRD) Non-Af 52 L, BUN/Creatinine Ratio 39.6 H, Glucose 95, Calcium 8.6, Total Bilirubin 0.70 Rhythm: EKG: ECHO: Stress Test: Cardiac Cath: PCI: CT Surgery: Holter monitor: EPS: PPM: CXR: Chest CT Scan: Medical Necessity - Tobacco Use Smoking Status: Former smoker Tobacco Use: Cigarettes Assessment/Plan Atrial flutter with symptoms, still intermittent fast ventricular rate at 110. Will give the patient digoxin 0.25 mg IV 1 dose. Systolic blood pressure is on the low side of normal. Patient has been on calcium mynor and beta-mynor at this point. We will try to improve rate control with further loading of digoxin and amiodarone p.o. Cardioversion in the future after adequate durations of oral anticoagulation. We will watch bronchospasm with the use of amiodarone Acute on chronic diastolic dysfunction of the left ventricle
--- NOTE | 2020-09-10 12:47 | PCM.PN.HOSP ---
<Andreas Burden PA - Last Filed: 09/10/20 12:47> Patient Problems: Active and Suspected Problems Atrial flutter with rapid ventricular response (Acute) Congestive heart failure (CHF) (Acute) Reason for Visit: SOB Subjective: Pt resting comfortably in bed NAD. Pt continues to have tachycardia in the AM, improved during the day. SOB is improved. Pt on basal o2. No CP/palp. No LE edema. Vitals/I&O's: Vital Signs Temp Pulse Resp BP Pulse Ox 98.3 F 71 18 114/74 92 09/10/20 11:15 09/10/20 11:35 09/10/20 11:35 09/10/20 11:15 09/10/20 11:15 Oxygen Flow Rate (L/min) [ 6 AMBULATION with Oxygen] Oxygen Flow Rate (L/min) 4 Oxygen Delivery Method Nasal Cannula Weight: 238 lb 15.697 oz Body Mass Index (BMI) 41.1 Intake and Output for Last 24 Hours 09/08/20 09/09/20 09/10/20 23:59 23:59 23:59 Intake Total 740 / 1140 1100 / 1100 670 / 670 Output Total 0 / 0 Balance 740 / 1140 1100 / 1100 670 / 670 General: Alert, Oriented x3, Cooperative HEENT: Atraumatic, PERRLA, EOMI, Normocephalic Neck: Supple, No JVD, Negative Carotid Bruits Lungs: Clear to auscultation, Diminished Cardiovascular: No murmurs, Irregular Rate Abdomen: Bowel Sounds Present, Soft, Non Tender, Obese Extremities: No edema, Capillary Refill Less than 3 Seconds Skin: No rashes, No breakdown Musculoskeletal: No Tenderness to Palpation of Joints or Extremities Neurological: Cranial nerves II-XII grossly intact Psych/Mental Status: Normal Affect, Appropriate, Alert and oriented to time, place, person, mood and affect Laboratory Results 09/09/20 16:50: POC Glucose 243 H 09/09/20 21:42: POC Glucose 196 H 09/10/20 05:34: WBC 7.4, RBC 4.50, Hgb 13.4, Hct 43.2, MCV 96.0, MCH 29.8, MCHC 31.0 L, RDW Std Deviation 52.8 H, RDW Coeff of Stephanie 14.9 H, Plt Count 272, MPV 10.2, Immature Gran % (Auto) 0.400, Neut % (Auto) 67.8, Lymph % (Auto) 21.8, [place] % (Auto) 9.9, Eos % (Auto) 0.0, Baso % (Auto) 0.1, Absolute Neuts (auto) 5.0, Absolute Lymphs (auto) 1.61, Nucleated RBC % 0 09/10/20 05:34: Sodium 137, Potassium 4.0, Chloride 97 L, Carbon Dioxide 40.0 H, Anion Gap 0 L, BUN 44 H, Creatinine 1.11 H, Estim Creat Clear Calc 42.47, Est GFR (MDRD) Af Amer 63, Est GFR (MDRD) Non-Af 52 L, BUN/Creatinine Ratio 39.6 H, Glucose 95, Calcium 8.6, Total Bilirubin 0.70, AST 6 L, ALT 20, Alkaline Phosphatase 73, Total Protein 6.1 L, Albumin 2.8 L, Globulin 3.3, Albumin/Globulin Ratio 0.8 L 09/10/20 06:43: POC Glucose 78 09/10/20 11:09: POC Glucose 106 Current Medications Acetaminophen (Tylenol) 650 mg PO Q6H PRN PRN PRN Reason: Pain Score 1-10/Temp > 100.7 F Last Admin: 09/10/20 03:41 Dose: 325 mg Documented by: Amiodarone HCl (Amiodarone 200 Mg Tablet) 400 mg PO BID [facility] Apixaban (Apixaban 5 Mg Tablet) 5 mg PO BID [facility] Last Admin: 09/10/20 08:32 Dose: 5 mg Documented by: Atorvastatin Calcium (Lipitor) 20 mg PO QHS [facility] Last Admin: 09/09/20 21:43 Dose: 20 mg Documented by: Diltiazem HCl (Diltiazem Cd 180 Mg Capsule) 360 mg PO DAILY [facility] Last Admin: 09/10/20 08:32 Dose: 360 mg Documented by: Guaifenesin (Guaifenesin Dm 10 Ml Udc) 10 ml PO Q6H PRN PRN PRN Reason: COUGH Last Admin: 09/07/20 19:49 Dose: 10 ml Documented by: Insulin Human Lispro (Insulin Lispro 100 Unit/Ml Insuln.Pen) [address] [facility]; Protocol Last Admin: 09/10/20 11:16 Dose: Not Given Documented by: Ipratropium [place] (Ipratropium 0.5 Mg/2.5 Ml Solution) 0.5 mg INHALATION Q4H.RT [facility] Last Admin: 09/10/20 11:35 Dose: 0.5 mg Documented by: Metformin HCl (Metformin (Xr) 500 Mg Tablet) 500 mg PO DAILYCM [facility] Last Admin: 09/10/20 08:32 Dose: 500 mg Documented by: Metoprolol Tartrate (Metoprolol Tartrate 50 Mg Tablet) 50 mg PO BID [facility] Last Admin: 09/10/20 08:32 Dose: 50 mg Documented by: Ondansetron HCl (Zofran) 4 mg IV Q8H PRN PRN PRN Reason: NAUSEA/VOMITING Prednisone (Prednisone 20 Mg Tablet) 40 mg PO DAILY@0800 [facility] Last Admin: 09/10/20 08:32 Dose: 40 mg Documented by: Senna/Docusate Sodium (Senokot-S, Shaye-Colace) 2 tablet PO BID PRN PRN PRN Reason: Constipation Sodium Chloride () 10 - 40 ml IV UD PRN PRN Reason: SALINE FLUSH Last Admin: 09/10/20 11:20 Dose: 10 ml Documented by: Zolpidem Tartrate (Ambien (Generic)) 5 mg PO QHS PRN PRN PRN Reason: INSOMNIA STROKE Vital Signs/Narrative: Vital Signs Temp Pulse Resp BP Pulse Ox 09/10/20 11:35 71 18 09/10/20 11:20 77 09/10/20 11:15 98.3 F 77 18 114/74 92 09/10/20 10:28 94 Medical Necessity - Tobacco Use Smoking Status: Former smoker Tobacco Use: Cigarettes Assessment/Plan All Active Problems Atrial flutter with rapid ventricular response (Acute) Congestive heart failure (CHF) (Acute) 1. Acute on chronic hypoxic respiratory failure secondary to COPD exacerbation-continue steroid taper, aerosol therapy. Pulmonary medicine following. BiPAP at night. She remains on 4 L/min oxygen via nasal cannula. No fever or leukocytosis. CO2 mildly elevated. Her baseline oxygen use is 3 to 4 L/min continuously. Patient had previously stated that she was not using it all the time. Continue Avaps at night. 2. Atrial fibrillation with rapid ventricular response- cardiology following. started on dig and amiodarone. continue eliquis. 3. Acute on chronic diastolic congestive heart failure - resolved. monitor CO2. Echo with EF of 65%, RVSP 32 mmHg, mildly enlarged left atrium. Initial chest x-ray with mild degree of vascular congestion and mildly elevated BNP. Troponin negative x3. 4. Hypertension - well controlled. 5. Hyperlipidemia - statin 6. Diabetes mellitus type 2 with morbid obesity-A1c 5.8 demonstrating good control. Metformin is held, continue sliding scale insulin. 7. Nicotine abuse-supposedly quit 2 weeks ago. It is essential that she continue to remain completely abstinent from nicotine products and avoid all smoke exposure. 8. Suspected sleep apnea - we again discussed her need for sleep study as an outpatient. continue avaps qhs while here. DVT prophylaxis: Eliquis DC planning: monitor heart rate, walking pulse ox prior to dc. This patient was seen by Andreas Burden PA-C under the supervision of Doctor Elie. <Beata Delgadillo - Last Filed: 09/10/20 14:43> Vitals/I&O's: Vital Signs Temp Pulse Resp BP Pulse Ox 98.3 F 71 18 114/74 92 09/10/20 11:15 09/10/20 11:35 09/10/20 11:35 09/10/20 11:15 09/10/20 11:15 Oxygen Flow Rate (L/min) [ 6 AMBULATION with Oxygen] Oxygen Flow Rate (L/min) 4 Oxygen Delivery Method Nasal Cannula Weight: 108.4 kg Body Mass Index (BMI) 41.1 Intake and Output for Last 24 Hours 09/08/20 09/09/20 09/10/20 23:59 23:59 23:59 Intake Total 740 / 1140 1100 / 1100 670 / 670 Output Total 0 / 0 Balance 740 / 1140 1100 / 1100 670 / 670 Laboratory Results 09/09/20 16:50: POC Glucose 243 H 09/09/20 21:42: POC Glucose 196 H 09/10/20 05:34: WBC 7.4, RBC 4.50, Hgb 13.4, Hct 43.2, MCV 96.0, MCH 29.8, MCHC 31.0 L, RDW Std Deviation 52.8 H, RDW Coeff of [place] 14.9 H, Plt Count 272, MPV 10.2, Immature Gran % (Auto) 0.400, Neut % (Auto) 67.8, Lymph % (Auto) 21.8, [place] % (Auto) 9.9, Eos % (Auto) 0.0, Baso % (Auto) 0.1, Absolute Neuts (auto) 5.0, Absolute Lymphs (auto) 1.61, Nucleated RBC % 0 09/10/20 05:34: Sodium 137, Potassium 4.0, Chloride 97 L, Carbon Dioxide 40.0 H, Anion Gap 0 L, BUN 44 H, Creatinine 1.11 H, Estim Creat Clear Calc 42.47, Est GFR (MDRD) Af Amer 63, Est GFR (MDRD) Non-Af 52 L, BUN/Creatinine Ratio 39.6 H, Glucose 95, Calcium 8.6, Total Bilirubin 0.70, AST 6 L, ALT 20, Alkaline Phosphatase 73, Total Protein 6.1 L, Albumin 2.8 L, Globulin 3.3, Albumin/Globulin Ratio 0.8 L 09/10/20 06:43: POC Glucose 78 09/10/20 11:09: POC Glucose 106 Current Medications Acetaminophen (Tylenol) 650 mg PO Q6H PRN PRN PRN Reason: Pain Score 1-10/Temp > 100.7 F Last Admin: 09/10/20 03:41 Dose: 325 mg Documented by: Amiodarone HCl (Amiodarone 200 Mg Tablet) 400 mg PO BID [facility] Apixaban (Apixaban 5 Mg Tablet) 5 mg PO BID [facility] Last Admin: 09/10/20 08:32 Dose: 5 mg Documented by: Atorvastatin Calcium (Lipitor) 20 mg PO QHS [facility] Last Admin: 09/09/20 21:43 Dose: 20 mg Documented by: Diltiazem HCl (Diltiazem Cd 180 Mg Capsule) 360 mg PO DAILY [facility] Last Admin: 09/10/20 08:32 Dose: 360 mg Documented by: Guaifenesin (Guaifenesin Dm 10 Ml Udc) 10 ml PO Q6H PRN PRN PRN Reason: COUGH Last Admin: 09/07/20 19:49 Dose: 10 ml Documented by: Insulin Human Lispro (Insulin Lispro 100 Unit/Ml Insuln.Pen) 0 unit [facility]; Protocol Last Admin: 09/10/20 11:16 Dose: Not Given Documented by: Ipratropium [place] (Ipratropium 0.5 Mg/2.5 Ml Solution) 0.5 mg INHALATION Q4H.RT [facility] Last Admin: 09/10/20 11:35 Dose: 0.5 mg Documented by: Metformin HCl (Metformin (Xr) 500 Mg Tablet) 500 mg PO DAILYCM [facility] Last Admin: 09/10/20 08:32 Dose: 500 mg Documented by: Metoprolol Tartrate (Metoprolol Tartrate 50 Mg Tablet) 50 mg PO BID [facility] Last Admin: 09/10/20 08:32 Dose: 50 mg Documented by: Ondansetron HCl (Zofran) 4 mg IV Q8H PRN PRN PRN Reason: NAUSEA/VOMITING Prednisone (Prednisone 20 Mg Tablet) 40 mg PO DAILY@0800 [facility] Last Admin: 09/10/20 08:32 Dose: 40 mg Documented by: Senna/Docusate Sodium (Senokot-S, Shaye-Colace) 2 tablet PO BID PRN PRN PRN Reason: Constipation Sodium Chloride () 10 - 40 ml IV UD PRN PRN Reason: SALINE FLUSH Last Admin: 09/10/20 11:20 Dose: 10 ml Documented by: Zolpidem Tartrate (Ambien (Generic)) 5 mg PO QHS PRN PRN PRN Reason: INSOMNIA STROKE Vital Signs/Narrative: Vital Signs Temp Pulse Resp BP Pulse Ox 09/10/20 11:35 71 18 09/10/20 11:20 77 09/10/20 11:15 98.3 F 77 18 114/74 92 Assessment/Plan This patient was seen in conjunction with KAYLAH Pereira. I have independently interviewed and examined the patient and reviewed pertinent historical, laboratory, and other data. Please refer to KAYLAH Pereira note for his patient's presentation, findings, and recommendations. I have reviewed and his note and concur with his documentation Patient was seen and examined. Patient received 2 doses of digoxin yesterday. Heart rate is slightly better. Yimi on 4 L of oxygen. Vitals were reviewed -stable, heart rate is better Physical Exam: Gen: Mildly dyspneic, not pale, not jaundiced, alert oriented x3, on 4 L of oxygen CVS:HS I +II, regular, no murmurs RESP: Decreased air entry, audible and expiratory wheezes GI: BS present and normal, nontender, no palpable organs EXT: Bilateral pedal edema +1 Labs reviewed: ASSESSMENT: 1. A flutter with RVR 2. Acute on chronic diastolic CHF exacerbation, EF 65% 3. Acute COPD exacerbation 4. Hypertension 5. Type II DM 6. Nicotine dependence, advised to quit 7. Morbid obesity Meds reviewed Plan: Continue with oral Cardizem, metoprolol oral bid We will follow-up on cardiology recommendation Continue on ipratropium scheduled inhalation Continue on insulin sliding scale Inpatient E&M: 51447 Subs Hosp L2
[2020-09-10] MEDS: Insulin Lispro 100 UNIT/ML INSULN.PEN SC ×2 (16:36→22:18)
[2020-09-10 16:45] LABS: Bedside Glucose 239 mg/dL (70-110)
[2020-09-10] MEDS: Amiodarone 200 MG Tablet 400 MG PO (22:07)
[2020-09-10] MEDS: Atorvastatin Calcium 20 MG Tablet PO (22:08)
[2020-09-10 22:56] LABS: Bedside Glucose 168 mg/dL (70-110)
[2020-09-11] VITALS (13 sets, daily range): BP systolic 118–122; BP diastolic 55–72; PULSE 63–95; RESP 16–18; TEMP 36.3–36.8; O2SAT 93–98
--- NOTE | 2020-09-11 01:46 | CPS ---
attempted to place pt on avaps/bipap , offered nasal mask. pt tried. pt has headache doen not want bipap on with either mask.
[2020-09-11 06:45] LABS: Anion Gap 0 (5-15); BUN 34 mg/dL (7-18); BUN/Creat Ratio 35.6 RATIO (10-20); Calcium,Total 8.7 mg/dL (8.5-10.1); Chloride 101 mmol/L (98-107); Creatinine, Serum 0.96 mg/dL (0.55-1.02); EST Glomerular Filtration Rate 62 mL/min (>60); Est Glom Filt Rate - Afr Amer 75 mL/min (>60); Glucose 75 mg/dL (74-106); Potassium 4.2 mmol/L (3.5-5.1); Sodium Level 140 mmol/L (136-145)
[2020-09-11 07:05] LABS: Bedside Glucose 72 mg/dL (70-110)
[2020-09-11] MEDS: Ipratropium 0.5 MG/2.5 ML SOLUTION INHALATION ×5 (07:18→22:58)
[2020-09-11] MEDS: predniSONE 20 MG Tablet 40 MG PO (08:46)
[2020-09-11] MEDS: metFORMIN (XR) 500 MG Tablet PO (08:46)
[2020-09-11] MEDS: dilTIAZem CD 180 MG Capsule 360 MG PO (08:46)
[2020-09-11] MEDS: APIXABAN 5 MG TABLET PO ×2 (08:47→20:53)
[2020-09-11] MEDS: Metoprolol Tartrate 50 MG Tablet PO ×2 (08:48→20:54)
[2020-09-11] MEDS: Amiodarone 200 MG Tablet 400 MG PO (08:49)
[2020-09-11] MEDS: Insulin Lispro 100 UNIT/ML INSULN.PEN SC ×3 (11:08→20:53)
[2020-09-11 11:35] LABS: Bedside Glucose 183 mg/dL (70-110)
--- NOTE | 2020-09-11 11:47 | DCINST_ITS ---
- Discharge Diagnoses Current Active Problems: Current Active and Chronic Problems Hyperlipidemia (Chronic) Type 2 diabetes mellitus (Chronic) Atrial flutter with rapid ventricular response (Acute) Congestive heart failure (CHF) (Acute) Asthma (Chronic) COPD (chronic obstructive pulmonary disease) with acute bronchitis (Chronic) Atrial flutter (Chronic) Tobacco dependence (Chronic) You will use the following diet at home:: Calorie/Carbohydrate Controlled (specify 1200, 1400, etc) - 1800 debbie / day, Cardiac Your food should be the consistency of: Regular Your liquids should be the consistency of: Regular/Thin Discharge Activity: Return to Normal Activity Allergies/Adverse Reactions: Allergies aspirin Allergy (Verified 09/04/20 14:21) Hives codeine Adverse Reaction (Verified 09/04/20 14:21) Nausea Medications to take at Discharge Albuterol Inhaler [Ventolin Hfa] 1 - 2 puff INHALATION Q4H PRN PRN #1 inhaler 03/10/15 Ascorbic Acid [Fruit C-500] 1,000 mg PO DAILY 09/04/20 Atorvastatin Calcium [Lipitor] 20 mg PO QHS 09/04/20 Metformin HCl [Metformin HCl ER] 500 mg PO DAILY 09/04/20 Apixaban [Eliquis] 5 mg PO BID #60 tab 09/08/20 Diltiazem CD [Cardizem CD] 360 mg PO DAILY 30 Days #60 cap 09/09/20 Metoprolol Tartrate [Lopressor (beta mynor)] 50 mg PO BID 30 Days #60 tab 09/09/20 Prednisone 10 mg PO DAILY #30 tab 09/09/20 The following prescriptions were given: Diltiazem CD [Cardizem CD] 360 mg PO DAILY 30 Days #60 cap Transmission Status: Received by [facility]/pharmacy #[id number] Apixaban [Eliquis] 5 mg PO BID #60 tab Transmission Status: Received by [facility]/pharmacy #[id number] Metoprolol Tartrate [Lopressor (beta mynor)] 50 mg PO BID 30 Days #60 tab Transmission Status: Received by [facility]/pharmacy #[id number] Prednisone 10 mg PO DAILY #30 tab Transmission Status: Received by [facility]/pharmacy #[id number] Primary Care Physician: Meena Garcia MD [Primary Care Provider] - Please follow up with your Primary Care Physician in: within 1-2 weeks Test Results: Test results from this visit will be discussed in further detail at your follow- up appointment, if applicable. Please Follow Up With: Adryan Arndt MD When: within 2 weeks Please Follow Up With: Cl Barrow MD When: within 2 weeks Proposed Discharge Date: 09/09/20
--- NOTE | 2020-09-11 12:08 | CASEMGMT ---
Pt does not qualify for increased home oxygen at this time. This RN CM to room to discuss discharge plan with pt at this time. Pt states she has a portable tank to get home with. Pt plans to f/u with Pulmonology at discharge for sleep study and possible POC. Pt voices no further questions/concerns/needs at this time. [place] ANDIE ZAPATA
--- NOTE | 2020-09-11 13:21 | PN_ITS ---
<Andreas Burden PA - Last Filed: 09/11/20 13:21> Patient Problems: Active and Suspected Problems Atrial flutter with rapid ventricular response (Acute) Congestive heart failure (CHF) (Acute) Reason for Visit: bradycardia, afib rvr Subjective: Breathing improved. No desat on ambulation. No tachycardia on ambulation. At rest pt became bradycardic and dizzy and does not feel safe returning home. No cough. No chest pain. No palpitations. Vitals/I&O's: Vital Signs Temp Pulse Resp BP Pulse Ox 98.2 F 73 16 118/72 89 09/11/20 08:39 09/11/20 10:48 09/11/20 10:48 09/11/20 08:48 09/11/20 10:07 Oxygen Flow Rate (L/min) [ 4 AMBULATION with Oxygen] Oxygen Flow Rate (L/min) 4 Oxygen Delivery Method Nasal Cannula Weight: 238 lb 15.697 oz Body Mass Index (BMI) 41.1 Intake and Output for Last 24 Hours 09/09/20 09/10/20 09/11/20 23:59 23:59 23:59 Intake Total 1100 / 1100 1020 / 1240 660 / 660 Balance 1100 / 1100 1020 / 1240 660 / 660 General: Alert, Oriented x3, Cooperative HEENT: Atraumatic, PERRLA, EOMI, Normocephalic Neck: Supple, No JVD, Negative Carotid Bruits Lungs: Diminished, Rales Cardiovascular: No murmurs, Irregular Rate Abdomen: Bowel Sounds Present, Soft, Non Tender Extremities: No edema, Capillary Refill Less than 3 Seconds Skin: No rashes, No breakdown Musculoskeletal: No Tenderness to Palpation of Joints or Extremities Neurological: Cranial nerves II-XII grossly intact Psych/Mental Status: Normal Affect, Appropriate, Alert and oriented to time, place, person, mood and affect Laboratory Results 09/10/20 16:35: POC Glucose 239 H 09/10/20 22:16: POC Glucose 168 H 09/11/20 05:57: Sodium 140, Potassium 4.2, Chloride 101, Carbon Dioxide 39.0 H, Anion Gap 0 L, BUN 34 H, Creatinine 0.96, Estim Creat Clear Calc 49.10, Est GFR (MDRD) Af Amer 75, Est GFR (MDRD) Non-Af 62, BUN/Creatinine Ratio 35.6 H, Glucose 75, Calcium 8.7 09/11/20 06:53: POC Glucose 72 09/11/20 11:07: POC Glucose 183 H Current Medications Acetaminophen (Tylenol) 650 mg PO Q6H PRN PRN PRN Reason: Pain Score 1-10/Temp > 100.7 F Last Admin: 09/10/20 22:13 Dose: 325 mg Documented by: Amiodarone HCl (Amiodarone 200 Mg Tablet) 400 mg PO BID COUNTS INCLUDE 234 BEDS AT THE [facility] Last Admin: 09/11/20 08:49 Dose: 400 mg Documented by: Apixaban (Apixaban 5 Mg Tablet) 5 mg PO BID COUNTS INCLUDE 234 BEDS AT THE [facility] Last Admin: 09/11/20 08:47 Dose: 5 mg Documented by: Atorvastatin Calcium (Lipitor) 20 mg PO QHS COUNTS INCLUDE 234 BEDS AT THE [facility] Last Admin: 09/10/20 22:08 Dose: 20 mg Documented by: Diltiazem HCl (Diltiazem Cd 180 Mg Capsule) 360 mg PO DAILY COUNTS INCLUDE 234 BEDS AT THE [facility] Last Admin: 09/11/20 08:46 Dose: 360 mg Documented by: Guaifenesin (Guaifenesin Dm 10 Ml Udc) 10 ml PO Q6H PRN PRN PRN Reason: COUGH Last Admin: 09/07/20 19:49 Dose: 10 ml Documented by: Insulin Human Lispro (Insulin Lispro 100 Unit/Ml Insuln.Pen) 0 unit [facility]; Protocol Last Admin: 09/11/20 11:08 Dose: 1 units Documented by: Ipratropium [place] (Ipratropium 0.5 Mg/2.5 Ml Solution) 0.5 mg INHALATION Q4H.RT COUNTS INCLUDE 234 BEDS AT THE [facility] Last Admin: 09/11/20 10:48 Dose: 0.5 mg Documented by: Metformin HCl (Metformin (Xr) 500 Mg Tablet) 500 mg PO DAILYCM COUNTS INCLUDE 234 BEDS AT THE [facility] Last Admin: 09/11/20 08:46 Dose: 500 mg Documented by: Metoprolol Tartrate (Metoprolol Tartrate 50 Mg Tablet) 50 mg PO BID COUNTS INCLUDE 234 BEDS AT [facility] Last Admin: 09/11/20 08:48 Dose: 50 mg Documented by: Ondansetron HCl (Zofran) 4 mg IV Q8H PRN PRN PRN Reason: NAUSEA/VOMITING Prednisone (Prednisone 20 Mg Tablet) 40 mg PO DAILY@0800 COUNTS INCLUDE 234 BEDS AT THE [facility] Last Admin: 09/11/20 08:46 Dose: 40 mg Documented by: Senna/Docusate Sodium (Senokot-S, Shaye-Colace) 2 tablet PO BID PRN PRN PRN Reason: Constipation Sodium Chloride () 10 - 40 ml IV UD PRN PRN Reason: SALINE FLUSH Last Admin: 09/10/20 11:20 Dose: 10 ml Documented by: Zolpidem Tartrate (Ambien (Generic)) 5 mg PO QHS PRN PRN PRN Reason: INSOMNIA STROKE Vital Signs/Narrative: Vital Signs Pulse Resp Pulse Ox 09/11/20 10:48 73 16 09/11/20 10:07 89 Medical Necessity - Tobacco Use Smoking Status: Former smoker Tobacco Use: Cigarettes Assessment/Plan All Active Problems Atrial flutter with rapid ventricular response (Acute) Congestive heart failure (CHF) (Acute) 1. Acute on chronic hypoxic respiratory failure secondary to COPD exacerbation- continue steroid taper, aerosol therapy. Pulmonary medicine following. BiPAP at night. She remains on 4 L/min oxygen via nasal cannula. No fever or leukocytosis. CO2 mildly elevated. Her baseline oxygen use is 3 to 4 L/min continuously. Patient had previously stated that she was not using it all the time. Continue Avaps at night. -Sleep study as outpatient -No desat on ambulation today 2. Atrial fibrillation with rapid ventricular response- now with bradycardia and dizziness. Cardiology notified. 3. Acute on chronic diastolic congestive heart failure - resolved. monitor CO2. Echo with EF of 65%, RVSP 32 mmHg, mildly enlarged left atrium. Initial chest x-ray with mild degree of vascular congestion and mildly elevated BNP. Troponin negative x3. 4. Hypertension - well controlled. 5. Hyperlipidemia - statin 6. Diabetes mellitus type 2 with morbid obesity-A1c 5.8 demonstrating good control. Metformin is held, continue sliding scale insulin. 7. Nicotine abuse-supposedly quit 2 weeks ago. It is essential that she continue to remain completely abstinent from nicotine products and avoid all smoke exposure. 8. Suspected sleep apnea - we again discussed her need for sleep study as an outpatient. continue avaps qhs while here. DVT prophylaxis: Dana SKAGGS planning: monitor for further bradycardia overnight. This patient was seen by Andreas Burden PA-C under the supervision of Doctor Derrick <Ozzy Meza - Last Filed: 09/11/20 15:52> Reason for Visit: Bradycardia. Initially patient had A. fib with RVR but heart rate currently is low. Objective: Patient was bradycardic and felt dizzy. Earlier patient did not had tachycardia on ambulation there was plan for discharge but canceled. Physical exam General: Alert, Oriented x3, Cooperative HEENT: Atraumatic, PERRLA, EOMI, Normocephalic Oral: No Gingival or Mucosal Lesions/ Ulcerations Neck: Supple, No JVD, Negative Carotid Bruits Lungs: Air entry diminished in bilateral lung. No crepitation/rhonchi Cardiovascular: Irregular rate and rhythm, Normal S1, Normal S2, No murmurs. Patient was bradycardic and heart rate recovered Abdomen: Bowel Sounds Present, Soft, Non Tender, Non-Distended : No renal angle tenderness. No suprapubic tenderness. Extremities: Mild ankle edema., Capillary Refill Less than 3 Seconds Skin: No rashes, No breakdown Musculoskeletal: No Tenderness to Palpation of Joints or Extremities Neurological: Cranial nerves II-XII grossly intact, Deep Tendon Reflexes 2+/4 and Symmetrical, Neuro grossly intact Psych/Mental Status: Normal Affect, Appropriate. Vitals/I&O's: Vital Signs Temp Pulse Resp BP Pulse Ox 97.5 F L 74 18 113/64 93 09/11/20 14:45 09/11/20 14:59 09/11/20 14:45 09/11/20 14:45 09/11/20 14:45 Oxygen Flow Rate (L/min) [ 4 AMBULATION with Oxygen] Oxygen Flow Rate (L/min) 4 Oxygen Delivery Method Nasal Cannula Weight: 238 lb 15.697 oz Body Mass Index (BMI) 41.1 Intake and Output for Last 24 Hours 09/09/20 09/10/20 09/11/20 23:59 23:59 23:59 Intake Total 1100 / 1100 1020 / 1240 660 / 660 Balance 1100 / 1100 1020 / 1240 660 / 660 Laboratory Results 09/10/20 16:35: POC Glucose 239 H 09/10/20 22:16: POC Glucose 168 H 09/11/20 05:57: Sodium 140, Potassium 4.2, Chloride 101, Carbon Dioxide 39.0 H, Anion Gap 0 L, BUN 34 H, Creatinine 0.96, Estim Creat Clear Calc 49.10, Est GFR (MDRD) Af Amer 75, Est GFR (MDRD) Non-Af 62, BUN/Creatinine Ratio 35.6 H, Glucose 75, Calcium 8.7 09/11/20 06:53: POC Glucose 72 09/11/20 11:07: POC Glucose 183 H Current Medications Acetaminophen (Tylenol) 650 mg PO Q6H PRN PRN PRN Reason: Pain Score 1-10/Temp > 100.7 F Last Admin: 09/10/20 22:13 Dose: 325 mg Documented by: Amiodarone HCl (Amiodarone 200 Mg Tablet) 200 mg PO DAILY COUNTS INCLUDE 234 BEDS AT THE [facility] Apixaban (Apixaban 5 Mg Tablet) 5 mg PO BID COUNTS INCLUDE 234 BEDS AT [facility] Last Admin: 09/11/20 08:47 Dose: 5 mg Documented by: Atorvastatin Calcium (Lipitor) 20 mg PO QHS COUNTS INCLUDE 234 BEDS AT [facility] Last Admin: 09/10/20 22:08 Dose: 20 mg Documented by: Diltiazem HCl (Diltiazem Cd 180 Mg Capsule) 360 mg PO DAILY COUNTS INCLUDE 234 BEDS AT [facility] Last Admin: 09/11/20 08:46 Dose: 360 mg Documented by: Guaifenesin (Guaifenesin Dm 10 Ml Udc) 10 ml PO Q6H PRN PRN PRN Reason: COUGH Last Admin: 09/07/20 19:49 Dose: 10 ml Documented by: Insulin Human Lispro (Insulin Lispro 100 Unit/Ml Insuln.Pen) 0 unit [facility]; Protocol Last Admin: 09/11/20 11:08 Dose: 1 units Documented by: Ipratropium [place] (Ipratropium 0.5 Mg/2.5 Ml Solution) 0.5 mg INHALATION Q4H.RT COUNTS INCLUDE 234 BEDS AT THE [facility] Last Admin: 09/11/20 14:16 Dose: 0.5 mg Documented by: Metformin HCl ([facility] (Xr) 500 Mg Tablet) [facility] Last Admin: 09/11/20 08:46 Dose: 500 mg Documented by: Metoprolol Tartrate (Metoprolol Tartrate 50 Mg Tablet) 50 mg PO BID COUNTS INCLUDE 234 BEDS AT [facility] Last Admin: 09/11/20 08:48 Dose: 50 mg Documented by: Ondansetron HCl (Zofran) 4 mg IV Q8H PRN PRN PRN Reason: NAUSEA/VOMITING Prednisone (Prednisone 20 Mg Tablet) 40 mg PO DAILY@0800 COUNTS INCLUDE 234 BEDS AT [facility] Last Admin: 09/11/20 08:46 Dose: 40 mg Documented by: Senna/Docusate Sodium (Senokot-S, Shaye-Colace) 2 tablet PO BID PRN PRN PRN Reason: Constipation Sodium Chloride () 10 - 40 ml IV UD PRN PRN Reason: SALINE FLUSH Last Admin: 09/10/20 11:20 Dose: 10 ml Documented by: Zolpidem Tartrate (Ambien (Generic)) 5 mg PO QHS PRN PRN PRN Reason: INSOMNIA STROKE Vital Signs/Narrative: Vital Signs Temp Pulse Resp BP Pulse Ox 09/11/20 14:59 74 09/11/20 14:45 97.5 F L 74 18 113/64 93 09/11/20 14:15 72 16 Assessment/Plan This patient was seen in conjunction with Andreas ADRIAN. I have independently interviewed and examined the patient and reviewed pertinent history, examination findings, laboratory and plan of management. I have reviewed the note and agree with the documented findings with the few additional points. In brief, patient is admitted for acute on chronic hypoxic respiratory secondary to COPD exacerbation: Patient BiPAP at night. On 4 L of oxygen. CO2 elevated 39, anion gap 0. Continue AVAPS at night. Sleep study as an outpatient. A. fib with bradycardia: Trade [employer] Coordinator was notified. Holding parameter for rate control medications. Other comorbidities as mentioned above. I have discussed my assessment with Andreas ADRIAN and orders have been reviewed. Clinical Impression(s) from Imaging Studies Chest X-Ray 09/04/20 14:55 IMPRESSION: Mild degree of vascular congestion. Laboratory Results 09/10/20 16:35: POC Glucose 239 H 09/10/20 22:16: POC Glucose 168 H 09/11/20 05:57: Sodium 140, Potassium 4.2, Chloride 101, Carbon Dioxide 39.0 H, Anion Gap 0 L, BUN 34 H, Creatinine 0.96, Estim Creat Clear Calc 49.10, Est GFR (MDRD) Af Amer 75, Est GFR (MDRD) Non-Af 62, BUN/Creatinine Ratio 35.6 H, Glucose 75, Calcium 8.7 09/11/20 06:53: POC Glucose 72 09/11/20 11:07: POC Glucose 183 H Inpatient E&M: 01935 Subs Hosp L2
--- NOTE | 2020-09-11 16:09 | PCM.PN.CARD ---
Subjectve: Denies any chest pain, palpitations Objective: Vital Signs Temp Pulse Resp BP Pulse Ox 97.5 F L 74 18 113/64 93 09/11/20 14:45 09/11/20 14:59 09/11/20 14:45 09/11/20 14:45 09/11/20 14:45 Oxygen Flow Rate (L/min) [ 4 AMBULATION with Oxygen] Oxygen Flow Rate (L/min) 4 Oxygen Delivery Method Nasal Cannula Weight: 238 lb 15.697 oz Body Mass Index (BMI) 41.1 Intake and Output for Last 24 Hours 09/09/20 09/10/20 09/11/20 23:59 23:59 23:59 Intake Total 1100 / 1100 1020 / 1240 660 / 660 Balance 1100 / 1100 1020 / 1240 660 / 660 General: Awake, Alert, Oriented x 3 HEENT: Atraumatic Oral: Moist Mucosa Neck: Supple Skin: No Rashes Psych/Mental Status: Appropriate 09/11/20 05:57: Sodium 140, Potassium 4.2, Chloride 101, Carbon Dioxide 39.0 H, Anion Gap 0 L, BUN 34 H, Creatinine 0.96, Est GFR (MDRD) Af Amer 75, Est GFR (MDRD) Non-Af 62, BUN/Creatinine Ratio 35.6 H, Glucose 75, Calcium 8.7 Rhythm: EKG: ECHO: Stress Test: Cardiac Cath: PCI: CT Surgery: Holter monitor: EPS: PPM: CXR: Chest CT Scan: Medical Necessity - Tobacco Use Smoking Status: Former smoker Tobacco Use: Cigarettes Assessment/Plan 1. Atrial flutter: Patient has history of prior flutter that was treated with cardioversion and since then she has not had a recurrence till now. Patient did not feel her heart racing when she was having rapid ventricular response. She feels better now that her heart rate is under better control. She was inquiring about cardioversion. Continue Cardizem and metoprolol at current doses. Her lisinopril has been discontinued. If required we can go up on the metoprolol. She will need to be on anticoagulation for at least 1 month prior to cardioversion. Over the weekend she had episodes of tachycardia and was started on amiodarone 400 mg p.o. twice daily and digoxin. This morning her heart rate was on the low side. We have decreased her amiodarone to 200 mg p.o. daily and she is not on digoxin. Continue Cardizem and metoprolol. 2. CHF: Could be related to the a flutter with rapid ventricular response. She has preserved EF. Patient preferred not to be on maintenance Lasix if she could stay off it.
[2020-09-11 16:45] LABS: Bedside Glucose 273 mg/dL (70-110)
[2020-09-11] MEDS: Atorvastatin Calcium 20 MG Tablet PO (20:54)
[2020-09-11 21:45] LABS: Bedside Glucose 211 mg/dL (70-110)
[2020-09-12] VITALS (18 sets, daily range): BP systolic 113–135; BP diastolic 51–65; PULSE 35–96; RESP 16–20; TEMP 36.3–36.7; O2SAT 89–99; BMI 41.1
[2020-09-12] MEDS: Ipratropium 0.5 MG/2.5 ML SOLUTION INHALATION ×5 (03:07→23:30)
--- NOTE | 2020-09-12 03:09 | CPS ---
pt does not want to wear at this time
[2020-09-12 06:51] LABS: Bedside Glucose 75 mg/dL (70-110)
[2020-09-12] MEDS: Amiodarone 200 MG Tablet PO (09:24)
[2020-09-12] MEDS: APIXABAN 5 MG TABLET PO ×2 (09:24→22:05)
[2020-09-12] MEDS: metFORMIN (XR) 500 MG Tablet PO (09:24)
[2020-09-12] MEDS: predniSONE 20 MG Tablet 40 MG PO (09:24)
[2020-09-12] MEDS: Metoprolol Tartrate 50 MG Tablet PO (09:25)
[2020-09-12] MEDS: dilTIAZem CD 180 MG Capsule 360 MG PO (09:25)
--- NOTE | 2020-09-12 12:19 | PCM.PN.CARD ---
Subjectve: The patient is awake and alert. She denies any ongoing acute chest discomfort, shortness of breath, or palpitations. There has been no near syncope or syncope. Objective: Vital Signs Temp Pulse Resp BP Pulse Ox 98.0 F 96 18 116/56 L 95 09/12/20 09:21 09/12/20 09:25 09/12/20 09:21 09/12/20 09:25 09/12/20 09:21 Oxygen Flow Rate (L/min) [ 4 AMBULATION with Oxygen] Oxygen Flow Rate (L/min) 4 Oxygen Delivery Method Nasal Cannula Weight: 242 lb 15.19 oz Body Mass Index (BMI) 41.1 Intake and Output for Last 24 Hours 09/10/20 09/11/20 09/12/20 23:59 23:59 23:59 Intake Total 1020 / 1240 1260 / 1260 170 / 170 Balance 1020 / 1240 1260 / 1260 170 / 170 General: Awake, Alert, Oriented x 3, Cooperative, No Acute Distress HEENT: Atraumatic, Normocephalic, PERRL, EOMI, Sclera Non Icteric Neck: Supple, Good ROM, No JVD Lungs: Clear to auscultation Cardiovascular: Irregular Rhythm, Normal S1, Normal S2 Abdomen: Bowel Sounds Present, Soft Rhythm: Atrial flutter with variable ventricular response Medical Necessity - Tobacco Use Smoking Status: Former smoker Tobacco Use: Cigarettes Assessment/Plan 1. Atrial flutter with variable ventricular response At the present time the patient has atrial flutter with variable ventricular response. Her medications are being adjusted in attempt to keep her right from becoming bradycardic as well as continuously tachycardic. She has also been placed on anticoagulant therapy. At the moment the overall goal is to adjust her medications, continue anticoagulant therapy, and plan for future outpatient synchronized biphasic DC cardioversion. If the patient would need an attempt at DC cardioversion prior to appropriate anticoagulation therapy then this may have to be performed via RUBI guidance. 2. CHF The patient was reported as having concerns of CHF. There were concerns whether this was related to her atrial dysrhythmia. At the present time the patient appears to be resting comfortably with no acute symptoms. She will continue medical therapy as deemed appropriate. 3. Hyperlipidemia She should continue medical management as deemed appropriate. Overall, the present time, the patient will continue medical therapy. The plan will be for the patient to follow-up as an outpatient with Dr. Barrow for continued evaluation and care. Comment: The patient's case has been reviewed with Dr. Meza. This note was generated using a voice recognition system and there may be incorrect words, spelling or punctuation that were not noted when reviewing the office note prior to saving.
--- NOTE | 2020-09-12 13:29 | PN_ITS ---
<Andreas Burden PA - Last Filed: 09/12/20 13:29> Patient Problems: Active and Suspected Problems Atrial flutter with rapid ventricular response (Acute) Congestive heart failure (CHF) (Acute) Reason for Visit: bradycardia Subjective: Breathing stable. This AM rate 140s, later in the afternoon 35. No palpitations, CP, or SOB. Vitals/I&O's: Vital Signs Temp Pulse Resp BP Pulse Ox 98.0 F 96 18 116/56 L 95 09/12/20 09:21 09/12/20 09:25 09/12/20 09:21 09/12/20 09:25 09/12/20 09:21 Oxygen Flow Rate (L/min) [ 4 AMBULATION with Oxygen] Oxygen Flow Rate (L/min) 4 Oxygen Delivery Method Nasal Cannula Weight: 242 lb 15.19 oz Body Mass Index (BMI) 41.1 Intake and Output for Last 24 Hours 09/10/20 09/11/20 09/12/20 23:59 23:59 23:59 Intake Total 1020 / 1240 1260 / 1260 170 / 170 Balance 1020 / 1240 1260 / 1260 170 / 170 General: Alert, Oriented x3, Cooperative HEENT: Atraumatic, PERRLA, EOMI, Normocephalic Neck: Supple, No JVD, Negative Carotid Bruits Lungs: Clear to auscultation, Normal air movement Cardiovascular: No murmurs, Irregular Rate Abdomen: Bowel Sounds Present, Soft, Non Tender Extremities: No edema, Capillary Refill Less than 3 Seconds Skin: No rashes, No breakdown Musculoskeletal: No Tenderness to Palpation of Joints or Extremities Neurological: Cranial nerves II-XII grossly intact Psych/Mental Status: Normal Affect, Appropriate, Alert and oriented to time, place, person, mood and affect Laboratory Results 09/11/20 16:22: POC Glucose 273 H 09/11/20 20:52: POC Glucose 211 H 09/12/20 06:43: POC Glucose 75 Current Medications Acetaminophen (Tylenol) 650 mg PO Q6H PRN PRN PRN Reason: Pain Score 1-10/Temp > 100.7 F Last Admin: 09/10/20 22:13 Dose: 325 mg Documented by: Amiodarone HCl (Amiodarone 200 Mg Tablet) 200 mg PO DAILY [facility] Last Admin: 09/12/20 09:24 Dose: 200 mg Documented by: Apixaban (Apixaban 5 Mg Tablet) 5 mg PO BID [facility] Last Admin: 09/12/20 09:24 Dose: 5 mg Documented by: Atorvastatin Calcium (Lipitor) 20 mg PO QHS [facility] Last Admin: 09/11/20 20:54 Dose: 20 mg Documented by: Diltiazem HCl (Diltiazem Cd 180 Mg Capsule) 360 mg PO DAILY [facility] Last Admin: 09/12/20 09:25 Dose: 360 mg Documented by: Guaifenesin (Guaifenesin Dm 10 Ml Udc) 10 ml PO Q6H PRN PRN PRN Reason: COUGH Last Admin: 09/07/20 19:49 Dose: 10 ml Documented by: Insulin Human Lispro (Insulin Lispro 100 Unit/Ml Insuln.Pen) 0 unit SC [facility]; Protocol Last Admin: 09/12/20 12:22 Dose: Not Given Documented by: Ipratropium [place] (Ipratropium 0.5 Mg/2.5 Ml Solution) 0.5 mg INHALATION Q4H.RT [facility] Last Admin: 09/12/20 11:00 Dose: 0.5 mg Documented by: Metformin HCl (Met[facility] (Xr) 500 Mg Tablet) [facility] Last Admin: 09/12/20 09:24 Dose: 500 mg Documented by: Metoprolol Tartrate (Metoprolol Tartrate 50 Mg Tablet) 50 mg PO BID [facility] Last Admin: 09/12/20 09:25 Dose: 50 mg Documented by: Ondansetron HCl (Zofran) 4 mg IV Q8H PRN PRN PRN Reason: NAUSEA/VOMITING Prednisone (Prednisone 20 Mg Tablet) 40 mg PO DAILY@0800 [facility] Last Admin: 09/12/20 09:24 Dose: 40 mg Documented by: Senna/Docusate Sodium (Senokot-S, Shaye-Colace) 2 tablet PO BID PRN PRN PRN Reason: Constipation Sodium Chloride () 10 - 40 ml IV UD PRN PRN Reason: SALINE FLUSH Last Admin: 09/10/20 11:20 Dose: 10 ml Documented by: Zolpidem Tartrate (Ambien (Generic)) 5 mg PO QHS PRN PRN PRN Reason: INSOMNIA Medical Necessity - Tobacco Use Smoking Status: Former smoker Tobacco Use: Cigarettes Assessment/Plan All Active Problems Atrial flutter with rapid ventricular response (Acute) Congestive heart failure (CHF) (Acute) 1. Acute on chronic hypoxic respiratory failure secondary to COPD exacerbation- continue steroid taper, aerosol therapy. Pulmonary medicine following. BiPAP at night. She remains on 4 L/min oxygen via nasal cannula. No fever or leukocytosis. CO2 mildly elevated. Her baseline oxygen use is 3 to 4 L/min continuously. Patient had previously stated that she was not using it all the time. Continue Avaps at night. -Sleep study as outpatient -No desat on ambulation today 2. Atrial fibrillation with tachy/montez - amiodarone decreased today, however, tachy 140s in the AM and still bradycardia into the 30s later in the day. cardiology notified. 3. Acute on chronic diastolic congestive heart failure - resolved. monitor CO 2. Echo with EF of 65%, RVSP 32 mmHg, mildly enlarged left atrium. Initial chest x-ray with mild degree of vascular congestion and mildly elevated BNP. Troponin negative x3. 4. Hypertension - well controlled. 5. Hyperlipidemia - statin 6. Diabetes mellitus type 2 with morbid obesity-A1c 5.8 demonstrating good control. Metformin is held, continue sliding scale insulin. 7. Nicotine abuse-supposedly quit 2 weeks ago. It is essential that she continue to remain completely abstinent from nicotine products and avoid all smoke exposure. 8. Suspected sleep apnea - we again discussed her need for sleep study as an outpatient. continue avaps qhs while here. DVT prophylaxis: Dana This patient was seen by Andreas Burden PA-C under the supervision of Doctor Derrick <Ozzy Meza - Last Filed: 09/12/20 15:50> Reason for Visit: bradycardia on walking. A fib Objective: Patient was bradycardic on walking. HR variable Physical exam General: Alert, Oriented x3, Cooperative HEENT: Atraumatic, PERRLA, EOMI, Normocephalic Oral: No Gingival or Mucosal Lesions/ Ulcerations Neck: Supple, No JVD, Negative Carotid Bruits Lungs: Air entry diminished in bilateral lung. No crepitation/rhonchi Cardiovascular: Irregular rate and rhythm, Normal S1, Normal S2, No murmurs. Patient was bradycardic on walking but stable on supine. Abdomen: Bowel Sounds Present, Soft, Non Tender, Non-Distended : No renal angle tenderness. No suprapubic tenderness. Extremities: Mild ankle edema., Capillary Refill Less than 3 Seconds Skin: No rashes, No breakdown Musculoskeletal: No Tenderness to Palpation of Joints or Extremities Neurological: Cranial nerves II-XII grossly intact, Deep Tendon Reflexes 2+/4 and Symmetrical, Neuro grossly intact Psych/Mental Status: Normal Affect, Appropriate. Vitals/I&O's: Vital Signs Temp Pulse Resp BP Pulse Ox 98.0 F 59 L 18 116/56 L 95 09/12/20 09:21 09/12/20 15:00 09/12/20 09:21 09/12/20 09:25 09/12/20 09:21 Oxygen Flow Rate (L/min) [ 4 AMBULATION with Oxygen] Oxygen Flow Rate (L/min) 4 Oxygen Delivery Method Nasal Cannula Weight: 242 lb 15.19 oz Body Mass Index (BMI) 41.1 Intake and Output for Last 24 Hours 09/10/20 09/11/20 09/12/20 23:59 23:59 23:59 Intake Total 1020 / 1240 1260 / 1260 410 / 410 Balance 1020 / 1240 1260 / 1260 410 / 410 Laboratory Results 09/11/20 16:22: POC Glucose 273 H 09/11/20 20:52: POC Glucose 211 H 09/12/20 06:43: POC Glucose 75 Current Medications Acetaminophen (Tylenol) 650 mg PO Q6H PRN PRN PRN Reason: Pain Score 1-10/Temp > 100.7 F Last Admin: 09/10/20 22:13 Dose: 325 mg Documented by: Amiodarone HCl (Amiodarone 200 Mg Tablet) 200 mg PO DAILY [facility] Last Admin: 09/12/20 09:24 Dose: 200 mg Documented by: Apixaban (Apixaban 5 Mg Tablet) 5 mg PO BID [facility] Last Admin: 09/12/20 09:24 Dose: 5 mg Documented by: Atorvastatin Calcium (Lipitor) 20 mg PO QHS [facility] Last Admin: 09/11/20 20:54 Dose: 20 mg Documented by: Guaifenesin (Guaifenesin Dm 10 Ml Udc) 10 ml PO Q6H PRN PRN PRN Reason: COUGH Last Admin: 09/07/20 19:49 Dose: 10 ml Documented by: Sodium Chloride () 1,000 mls @ 15 mls/hr IV .Q48H [facility] Insulin Human Lispro (Insulin Lispro 100 Unit/Ml Insuln.Pen) 0 unit SC A[facility]S [facility]; Protocol Last Admin: 09/12/20 12:22 Dose: Not Given Documented by: Ipratropium [place] (Ipratropium 0.5 Mg/2.5 Ml Solution) 0.5 mg INHALATION Q4H.RT [facility] Last Admin: 09/12/20 15:27 Dose: 0.5 mg Documented by: Metformin HCl (Metformin (Xr) 500 Mg Tablet) 500 mg PO DAILYCM [facility] Last Admin: 09/12/20 09:24 Dose: 500 mg Documented by: Metoprolol Tartrate (Metoprolol Tartrate 25 Mg Tablet) 25 mg PO BID [facility] Ondansetron HCl (Zofran) 4 mg IV Q8H PRN PRN PRN Reason: NAUSEA/VOMITING Prednisone (Prednisone 20 Mg Tablet) 30 mg PO DAILY@0800 [facility] Senna/Docusate Sodium (Senokot-S, Shaye-Colace) 2 tablet PO BID PRN PRN PRN Reason: Constipation Sodium Chloride () 10 - 40 ml IV UD PRN PRN Reason: SALINE FLUSH Last Admin: 09/10/20 11:20 Dose: 10 ml Documented by: Zolpidem Tartrate (Ambien (Generic)) 5 mg PO QHS PRN PRN PRN Reason: INSOMNIA STROKE Vital Signs/Narrative: Vital Signs Pulse 09/12/20 15:00 59 L 09/12/20 13:27 35 L Assessment/Plan This patient was seen in conjunction with Andreas ADRIAN. I have independently interviewed and examined the patient and reviewed pertinent history, examination findings, laboratory and plan of management. I have reviewed the note and agree with the documented findings with the few additional points. In brief, patient is admitted for acute on chronic hypoxic respiratory secondary to COPD exacerbation: Patient BiPAP at night. On 4 L of oxygen. CO2 elevated 39, anion gap 0. Continue AVAPS at night. Sleep study as an outpatient. A. fib with tachy/bradycardia: Medicaid Billing Clerk was notified. Holding parameter for rate control medications. Amio dose was decreased. Plan for RUBI and cardioversion arpita. Other comorbidities as mentioned above. I have discussed my assessment with Andreas ADRIAN and orders have been reviewed. Inpatient E&M: 44396 Subs Hosp L2
--- NOTE | 2020-09-12 14:23 | E[place]OTEE_ITS ---
Reason For Study: ATRIAL FIBRILLATION Medication RUBI probe 6VT-D (SN [id number]) passed with minimal difficulty. No complications were noted. [id number] gargled and swallowed. Cetacaine Topical [place] given X2 orally. Versed 1 mg given slow IVP. Fentanyl 50 mcg given slow IVP. Left Ventricle Normal LV size. The estimated ejection fraction is 65 %. Right Ventricle Normal RV size. Normal systolic function. Atria No doppler evidence for ASD. Normal left atrium. Appendage thrombus of the left atrium. Normal right atrium. Mitral Valve There is no mitral valve stenosis. Trivial mitral valve insufficiency. Tricuspid Valve There is no tricuspid stenosis. Unable to estimate RV systolic pressure due to inadequate jet, pulmonary artery pressure probably normal. Aortic Valve Trisinus/trileaflet aortic valve. There is no aortic stenosis. No aortic valve insufficiency. Pulmonic Valve There is no pulmonic valvular stenosis. No pulmonic valve insufficiency. Vessels Normal aortic root. Interpretation Summary The estimated ejection fraction is 65 %. Trivial mitral valve insufficiency. There is a thrombus seen in the left atrial appendage Ordering Physician: Archie Culver Referring Physician: Meena Garcia Performed By: Merissa Mcfarlane, RAFICS, RVT
[2020-09-12] MEDS: Insulin Lispro 100 UNIT/ML INSULN.PEN SC ×2 (16:19→22:06)
[2020-09-12 16:26] LABS: Bedside Glucose 191 mg/dL (70-110)
--- NOTE | 2020-09-12 19:25 | CPS ---
PATIENT WEANED TO 3 LPM
[2020-09-12 20:31] LABS: Bedside Glucose 150 mg/dL (70-110)
[2020-09-12] MEDS: Atorvastatin Calcium 20 MG Tablet PO (22:07)
[2020-09-12] MEDS: Metoprolol Tartrate 25 MG Tablet PO (22:07)
[2020-09-12] MEDS: 0.9% Saline Lock 10 ML Syringe IV (22:16)
[2020-09-12 23:01] LABS: Bedside Glucose 174 mg/dL (70-110)
[2020-09-13] VITALS (14 sets, daily range): BP systolic 102–134; BP diastolic 53–74; PULSE 63–110; RESP 16–18; TEMP 36.4–37; O2SAT 92–96
[2020-09-13] MEDS: Amiodarone 200 MG Tablet PO (06:50)
[2020-09-13] MEDS: APIXABAN 5 MG TABLET PO ×2 (06:50→21:08)
[2020-09-13 06:52] LABS: Anion Gap 3 (5-15); BUN 28 mg/dL (7-18); BUN/Creat Ratio 28.3 RATIO (10-20); Calcium,Total 8.9 mg/dL (8.5-10.1); Chloride 99 mmol/L (98-107); Creatinine, Serum 0.99 mg/dL (0.55-1.02); EST Glomerular Filtration Rate 59 mL/min (>60); Est Glom Filt Rate - Afr Amer 72 mL/min (>60); Estimated Creatinine Clearance 47.62 ml/min; Glucose 65 mg/dL (74-106); Potassium 4.1 mmol/L (3.5-5.1); Sodium Level 139 mmol/L (136-145)
[2020-09-13 06:56] LABS: Bedside Glucose 75 mg/dL (70-110)
[2020-09-13] MEDS: Ipratropium 0.5 MG/2.5 ML SOLUTION INHALATION ×2 (07:11→14:18)
[2020-09-13] MEDS: metFORMIN (XR) 500 MG Tablet PO (11:08)
[2020-09-13] MEDS: Metoprolol Tartrate 25 MG Tablet PO ×2 (11:09→21:08)
[2020-09-13] MEDS: predniSONE 20 MG Tablet 30 MG PO (11:09)
[2020-09-13] MEDS: Digoxin 250 MCG Tablet PO (11:09)
[2020-09-13] MEDS: 0.9% Saline Lock 10 ML Syringe IV (11:10)
[2020-09-13] MEDS: dilTIAZem CD 180 MG Capsule 360 MG PO (11:10)
[2020-09-13 11:35] LABS: Bedside Glucose 80 mg/dL (70-110)
--- NOTE | 2020-09-13 12:23 | PN_ITS ---
Patient Problems: Active and Suspected Problems Atrial flutter with rapid ventricular response (Acute) Congestive heart failure (CHF) (Acute) Reason for Visit: Follow-up for arrhythmia, A. fib with variable rate. Objective: Patient heart rate in 90s. Patient amiodarone and metoprolol dose decreased due to bradycardia before. Blood pressure is good. Patient had RUBI today. His daughter present in the room and I talked to her. Physical exam General: Alert, Oriented x3, Cooperative HEENT: Atraumatic, PERRLA, EOMI, Normocephalic Oral: No Gingival or Mucosal Lesions/ Ulcerations Neck: Supple, No JVD, Negative Carotid Bruits Lungs: Air entry diminished in bilateral lung. No crepitation/rhonchi Cardiovascular: Irregular rate and rhythm, Normal S1, Normal S2, No murmurs. Abdomen: Bowel Sounds Present, Soft, Non Tender, Non-Distended : No renal angle tenderness. No suprapubic tenderness. Extremities: Mild ankle edema., Capillary Refill Less than 3 Seconds Skin: No rashes, No breakdown Musculoskeletal: No Tenderness to Palpation of Joints or Extremities Neurological: Cranial nerves II-XII grossly intact, Deep Tendon Reflexes 2+/4 and Symmetrical, Neuro grossly intact Psych/Mental Status: Normal Affect, Appropriate. Vitals/I&O's: Vital Signs Temp Pulse Resp BP Pulse Ox 98.4 F 93 16 116/56 L 92 09/13/20 11:05 09/13/20 11:09 09/13/20 11:05 09/13/20 11:09 09/13/20 11:05 Oxygen Flow Rate (L/min) [ 4 AMBULATION with Oxygen] Oxygen Flow Rate (L/min) 2 Oxygen Delivery Method Nasal Cannula Weight: 241 lb 13.553 oz Body Mass Index (BMI) 41.1 Intake and Output for Last 24 Hours 09/11/20 09/12/20 09/13/20 23:59 23:59 23:59 Intake Total 1260 / 1260 770 / 770 Output Total 0 / 0 Balance 1260 / 1260 770 / 770 Laboratory Results 09/12/20 12:20: POC Glucose 150 H 09/12/20 16:15: POC Glucose 191 H 09/12/20 22:04: POC Glucose 174 H 09/13/20 06:00: Sodium 139, Potassium 4.1, Chloride 99, Carbon Dioxide 37.0 H, Anion Gap 3 L, BUN 28 H, Creatinine 0.99, Estim Creat Clear Calc 47.62, Est GFR (MDRD) Af Amer 72, Est GFR (MDRD) Non-Af 59 L, BUN/Creatinine Ratio 28.3 H, Glucose 65 L, Calcium 8.9, Magnesium 2.0 09/13/20 06:48: POC Glucose 75 09/13/20 11:08: POC Glucose 80 Current Medications Acetaminophen (Tylenol) 650 mg PO Q6H PRN PRN PRN Reason: Pain Score 1-10/Temp > 100.7 F Last Admin: 09/10/20 22:13 Dose: 325 mg Documented by: Amiodarone HCl (Amiodarone 200 Mg Tablet) 200 mg PO DAILY [facility] Last Admin: 09/13/20 06:50 Dose: 200 mg Documented by: Apixaban (Apixaban 5 Mg Tablet) 5 mg PO BID [facility] Last Admin: 09/13/20 06:50 Dose: 5 mg Documented by: Atorvastatin Calcium (Lipitor) 20 mg PO QHS [facility] Last Admin: 09/12/20 22:07 Dose: 20 mg Documented by: Digoxin (Digoxin 125 Mcg Tablet) 125 mcg PO DAILY [facility] Diltiazem HCl (Diltiazem Cd 180 Mg Capsule) 360 mg PO DAILY [facility] Last Admin: 09/13/20 11:10 Dose: 360 mg Documented by: Guaifenesin (Guaifenesin Dm 10 Ml Udc) 10 ml PO Q6H PRN PRN PRN Reason: COUGH Last Admin: 09/07/20 19:49 Dose: 10 ml Documented by: Sodium Chloride () 1,000 mls @ 15 mls/hr IV .Q48H [facility] Last Admin: 09/13/20 05:44 Dose: Not Given Documented by: Insulin Human Lispro (Insulin Lispro 100 Unit/Ml Insuln.Pen) 0 unit SC [facility]; Protocol Last Admin: 09/13/20 11:10 Dose: Not Given Documented by: Ipratropium [place] (Ipratropium 0.5 Mg/2.5 Ml Solution) 0.5 mg INHALATION Q4H.RT [facility] Last Admin: 09/13/20 07:11 Dose: 0.5 mg Documented by: Metformin HCl (Met[facility] (Xr) 500 Mg Tablet) [facility] Last Admin: 09/13/20 11:08 Dose: 500 mg Documented by: Metoprolol Tartrate (Metoprolol Tartrate 25 Mg Tablet) 25 mg PO BID [facility] Last Admin: 09/13/20 11:09 Dose: 25 mg Documented by: Ondansetron HCl (Zofran) 4 mg IV Q8H PRN PRN PRN Reason: NAUSEA/VOMITING Prednisone (Prednisone 20 Mg Tablet) 30 mg PO DAILY@0800 [facility] Last Admin: 09/13/20 11:09 Dose: 30 mg Documented by: Senna/Docusate Sodium (Senokot-S, Shaye-Colace) 2 tablet PO BID PRN PRN PRN Reason: Constipation Sodium Chloride () 10 - 40 ml IV UD PRN PRN Reason: SALINE FLUSH Last Admin: 09/13/20 11:10 Dose: 10 ml Documented by: Zolpidem Tartrate (Ambien (Generic)) 5 mg PO QHS PRN PRN PRN Reason: INSOMNIA STROKE Vital Signs/Narrative: Vital Signs Temp Pulse Resp BP Pulse Ox 09/13/20 11:09 93 116/56 L 09/13/20 11:05 98.4 F 93 16 116/56 L 92 09/13/20 08:41 96 09/13/20 08:31 97.7 F L 110 H 18 112/74 96 Medical Necessity - Tobacco Use Smoking Status: Former smoker Tobacco Use: Cigarettes Assessment/Plan All Active Problems Atrial flutter with rapid ventricular response (Acute) Congestive heart failure (CHF) (Acute) The patient is a 69-year-old female is admitted for acute on chronic hypoxic respiratory secondary to COPD exacerbation: 1. Acute on chronic hypoxic respiratory secondary to COPD exacerbation: On prednisone taper. Continue bronchodilator. Patient was treated with BiPAP and oxygen. CO2 elevated 39, anion gap 0. On 2 L of oxygen. On AVAPS, tidal volume 400, FiO2 30% at night and rescue therapy. Sleep study as an outpatient. 2. A. fib with tachy/bradycardia: This has been challenging to control her heart rate. Currently, patient on Cardizem CD, digoxin, metoprolol and amiodarone. On Eliquis 5 mg p.o. twice daily. Patient had RUBI was found small blood clot in the left atrial appendage therefore cardioversion was not done. Advised to continue Eliquis and repeat RUBI after a month. Discussed with the supervisor insecticide. 3. Acute on chronic diastolic congestive heart failure - resolved. monitor CO2. Echo with EF of 65%, RVSP 32 mmHg, mildly enlarged left atrium. Initial chest x-ray with mild degree of vascular congestion and mildly elevated BNP. Troponin negative x3. 4. Hypertension - well controlled. 5. Hyperlipidemia - statin 6. Diabetes mellitus type 2 with morbid obesity-A1c 5.8 demonstrating good control. Metformin is held, continue sliding scale insulin. 7. Nicotine abuse-supposedly quit 2 weeks ago. It is essential that she continue to remain completely abstinent from nicotine products and avoid all smoke exposure. 8. Suspected sleep apnea - we again discussed her need for sleep study as an outpatient. continue avaps qhs while here. DVT prophylaxis: Eliquis 5 milligrams p.o. twice daily. Total time of the visit including total time spent in counseling or coordination of care, (more than 50% of the total time, spent in obtaining medical information from nurses and other ancillary care providers), discussion with supervisor insecticide and patient's daughter near the bedside, review of labs and imaging is 30 minutes. Inpatient E&M: 25477 Subs Hosp L2
[2020-09-13] MEDS: Insulin Lispro 100 UNIT/ML INSULN.PEN SC ×2 (16:40→21:08)
[2020-09-13 17:11] LABS: Bedside Glucose 265 mg/dL (70-110)
[2020-09-13 20:46] LABS: Bedside Glucose 255 mg/dL (70-110)
[2020-09-13] MEDS: Atorvastatin Calcium 20 MG Tablet PO (21:08)
[2020-09-14] VITALS (12 sets, daily range): BP systolic 105–125; BP diastolic 58–68; PULSE 66–115; RESP 16–18; TEMP 36.7–37.4; O2SAT 93–96
--- NOTE | 2020-09-14 01:00 | CPS ---
pt declines bipap
[2020-09-14 06:02] LABS: Absolute Lymphocyte Count 2.27 X10^3/uL (0.83-4.51); Absolute Neutrophil Count 5.1 X10^3/uL (2.0-7.7); Basophil# 0.01 X10^3/uL; Basophil% 0.1 % (0-1); Eosinophil# 0.09 X10^3/uL; Eosinophils% 1.1 % (0-5); Hematocrit 43.5 % (37-47); Hemoglobin 13.8 g/dL (12.0-15.0); Lymphocyte # 2.27 X10^3/ul (4.0); Lymphocyte % 28.1 % (19-41); Mean Corp Hgb Conc 31.7 g/dL (32-36); Mean Corpuscular Hgb 30.1 pg (27.0-32.0); Mean Platelet Vol. 10.6 fl (6.2-12.0); Monocyte% 7.4 % (0-10); NRBC Flagged by Analyzer 0 % (0-5); Neutrophil # 5.09 X10^3/uL (2.7-7.7); Neutrophil % 62.9 % (47-70); POSITIVE MORPHOLOGY YES; Platelet Count 271 K/mm3 (150-450); RBC Distribution Width CV 14.8 % (11.6-14.6); RBC Distribution Width SD 51.3 fl (35.1-43.9); Red Blood Count 4.58 M/mm3 (4.2-5.4); White Blood Count 8.1 K/mm3 (4.4-11.0)
[2020-09-14 06:30] LABS: Anion Gap 1 (5-15); BUN 29 mg/dL (7-18); Calcium,Total 8.8 mg/dL (8.5-10.1); Chloride 102 mmol/L (98-107); Cholesterol 134 mg/dL (200); Creatinine, Serum 0.97 mg/dL (0.55-1.02); EST Glomerular Filtration Rate 61 mL/min (>60); Est Glom Filt Rate - Afr Amer 74 mL/min (>60); Glucose 73 mg/dL (74-106); High Density Lipoprotein 51 mg/dL; Potassium 4.2 mmol/L (3.5-5.1); Sodium Level 139 mmol/L (136-145); Triglycerides 79 mg/dL; Very Low Density Lipoprotein 16 mg/dL (5-40)
[2020-09-14 06:31] LABS: Differential Indicated SCAN CRITERIA MET
[2020-09-14 06:45] LABS: Bedside Glucose 108 mg/dL (70-110)
[2020-09-14] MEDS: Ipratropium 0.5 MG/2.5 ML SOLUTION INHALATION ×2 (06:57→10:35)
[2020-09-14 07:04] LABS: Platelet Estimate ADEQUATE (ADEQ); Red Cell Morphology NORM C+C NORMAL (NORM C&C)
[2020-09-14] MEDS: Amiodarone 200 MG Tablet PO (08:58)
[2020-09-14] MEDS: predniSONE 20 MG Tablet 30 MG PO (08:58)
[2020-09-14] MEDS: Digoxin 125 MCG Tablet PO (08:58)
[2020-09-14] MEDS: metFORMIN (XR) 500 MG Tablet PO (08:58)
[2020-09-14] MEDS: Metoprolol Tartrate 25 MG Tablet PO (08:59)
[2020-09-14] MEDS: APIXABAN 5 MG TABLET PO (08:59)
[2020-09-14] MEDS: dilTIAZem CD 180 MG Capsule 360 MG PO (08:59)
[2020-09-14] MEDS: Insulin Lispro 100 UNIT/ML INSULN.PEN SC (11:19)
--- NOTE | 2020-09-14 11:24 | PCM.DC ---
- Discharge Diagnoses Current Active Problems: Current Active and Chronic Problems Hyperlipidemia (Chronic) Type 2 diabetes mellitus (Chronic) Atrial flutter with rapid ventricular response (Acute) Congestive heart failure (CHF) (Acute) Asthma (Chronic) COPD (chronic obstructive pulmonary disease) with acute bronchitis (Chronic) Atrial flutter (Chronic) Tobacco dependence (Chronic) You will use the following diet at home:: Calorie/Carbohydrate Controlled (specify 1200, 1400, etc), Cardiac Your food should be the consistency of: Regular Discharge Activity: Return to Normal Activity, May Not Drive - for 2 weeks Call your doctor if you observe: Fever of 101 or Higher, Numbness or Tingling, Inability to urinate, Inability to have a bowel movement, Shortness of breath, Dizziness, Fainting spells, Swelling in the ankles, Chest pain, Prolonged hiccoughing, Increased palpitations (irregular heartbeat), Calf discomfort, Uncontrolled pain Allergies/Adverse Reactions: Allergies aspirin Allergy (Verified 09/04/20 14:21) Hives codeine Adverse Reaction (Verified 09/04/20 14:21) Nausea Medications to take at Discharge Albuterol Inhaler [Ventolin Hfa] 1 - 2 puff INHALATION Q4H PRN PRN #1 inhaler 03/10/15 Ascorbic Acid [Fruit C-500] 1,000 mg PO DAILY 09/04/20 Atorvastatin Calcium [Lipitor] 20 mg PO QHS 09/04/20 Metformin HCl [Metformin HCl ER] 500 mg PO DAILY 09/04/20 Apixaban [Eliquis] 5 mg PO BID #60 tab 09/08/20 Diltiazem CD [Cardizem CD] 360 mg PO DAILY 30 Days #60 cap 09/09/20 Prednisone 10 mg PO DAILY #30 tab 09/09/20 Amiodarone HCl [Cordarone] 200 mg PO DAILY #30 tab 09/12/20 Digoxin [Lanoxin] 125 mcg PO DAILY #30 tab 09/14/20 Metoprolol Tartrate [Lopressor (beta mynor)] 25 mg PO BID #60 tab 09/14/20 The following prescriptions were given: Diltiazem CD [Cardizem CD] 360 mg PO DAILY 30 Days #60 cap Transmission Status: Received by [id number] Amiodarone HCl [Cordarone] 200 mg PO DAILY #30 tab Transmission Status: Received by [id number] Apixaban [Eliquis] 5 mg PO BID #60 tab Transmission Status: Received by [facility]/pharmacy #[id number] Digoxin [Lanoxin] 125 mcg PO DAILY #30 tab Transmission Status: Pending to [facility] Metoprolol Tartrate [Lopressor (beta mynor)] 25 mg PO BID #60 tab Transmission Status: Pending to [facility] Prednisone 10 mg PO DAILY #30 tab Transmission Status: Received by [facility]/pharmacy #[id number] Primary Care Physician: Meena Garcia MD [Primary Care Provider] - Please follow up with your Primary Care Physician in: within 1-2 weeks Test Results: Test results from this visit will be discussed in further detail at your follow-up appointment, if applicable. Please Follow Up With: Adryan Arndt MD When: within 2 weeks Please Follow Up With: Cl Barrow MD When: within 2 weeks Please Follow Up With: Meena Garcia MD Proposed Discharge Date: 09/09/20
--- NOTE | 2020-09-14 11:26 | DS.PCM_ITS ---
Discharge Date and Diagnosis - Problem List Patient Problems: Active and Suspected Problems Atrial flutter with rapid ventricular response (Acute) Congestive heart failure (CHF) (Acute) Date of Admission: 09/04/20 Date of Discharge: 09/14/20 - Primary Discharge Diagnosis Acute Problems: Active Problems Atrial flutter with rapid ventricular response (Acute) Congestive heart failure (CHF) (Acute) Right atrial appendage thrombosis COPD exacerbation - Secondary Discharge Diagnosis Chronic Problems: Chronic Problems Hyperlipidemia (Chronic) Type 2 diabetes mellitus (Chronic) Asthma (Chronic) COPD (chronic obstructive pulmonary disease) with acute bronchitis (Chronic) Atrial flutter (Chronic) Tobacco dependence (Chronic) Hospital Course and Treatment Consultations 09/12/20 14:23 MD to MD Notification of Procedure Routine MD Notified:: Archie Culver Summary of Care Provided: [] The patient is a 69-year-old female is admitted for acute on chronic hypoxic respiratory secondary to COPD exacerbation: 1. Acute on chronic hypoxic respiratory secondary to COPD exacerbation: On pr ednisone taper. Continue bronchodilator. Patient was treated with BiPAP and oxygen. CO2 elevated 39, anion gap 0. On 2 L of oxygen. On AVAPS, tidal volume 400, FiO2 30% at night and rescue therapy. Sleep study as an outpatient. 2. A. fib with tachy/bradycardia: This has been challenging to control her heart rate. Currently, patient on Cardizem CD, digoxin, metoprolol and amiodarone. On Eliquis 5 mg p.o. twice daily. Patient had RUBI was found small blood clot in the left atrial appendage therefore cardioversion was not done. Advised to continue Eliquis and repeat RUBI after a month. Discussed with the ship keeper. 3. Acute on chronic diastolic congestive heart failure - resolved. monitor CO2. Echo with EF of 65%, RVSP 32 mmHg, mildly enlarged left atrium. Initial chest x-ray with mild degree of vascular congestion and mildly elevated BNP. Troponin negative x3. 4. Hypertension - well controlled. 5. Hyperlipidemia - statin 6. Diabetes mellitus type 2 with morbid obesity-A1c 5.8 demonstrating good control. Metformin resumed 7. Nicotine abuse-supposedly quit 2 weeks ago. It is essential that she continue to remain completely abstinent from nicotine products and avoid all smoke exposure. 8. Suspected sleep apnea - we again discussed her need for sleep study as an outpatient. continue avaps qhs while here. DVT prophylaxis: Eliquis 5 milligrams p.o. twice daily. Discharge medication reconciliation done. Discharge follow-up instructions completed. Discharge process discussed with the patient and all questions were answered to patient's satisfaction. Medication sent to retail pharmacy. Patient is discharged home on 30-day event monitor. Discussed in detail regarding follow-up and monitoring of signs and symptoms of arrhythmia with patient and her daughter. Total time spent, exact 35 minutes on discharge meds reconciliation, examination, coordination of care with nurses and ancillary staff, review of imaging and blood test and discussion with the patient on follow-up instructions Patient Problems: Active and Suspected Problems Atrial flutter with rapid ventricular response (Acute) Congestive heart failure (CHF) (Acute) Objective: Seen and examined. Heart rate and blood pressure controlled. Physical exam General: Alert, Oriented x3, Cooperative HEENT: Atraumatic, PERRLA, EOMI, Normocephalic Oral: No Gingival or Mucosal Lesions/ Ulcerations Neck: Supple, No JVD, Negative Carotid Bruits Lungs: Air entry diminished in bilateral lung. No crepitation/rhonchi Cardiovascular: Irregular rate and rhythm, Normal S1, Normal S2, No murmurs. Abdomen: Bowel Sounds Present, Soft, Non Tender, Non-Distended : No renal angle tenderness. No suprapubic tenderness. Extremities: Mild ankle edema., Capillary Refill Less than 3 Seconds Skin: No rashes, No breakdown Musculoskeletal: No Tenderness to Palpation of Joints or Extremities Neurological: Cranial nerves II-XII grossly intact, Deep Tendon Reflexes 2+/4 and Symmetrical, Neuro grossly intact Psych/Mental Status: Normal Affect, Appropriate. - Physical Exam Vitals/I&O's: Vital Signs Temp Pulse Resp BP Pulse Ox 99.3 F H 99 18 125/59 H 96 09/14/20 09:00 09/14/20 09:00 09/14/20 09:00 09/14/20 09:00 09/14/20 09:02 Oxygen Flow Rate (L/min) [ 4 AMBULATION with Oxygen] Oxygen Flow Rate (L/min) 3 Oxygen Delivery Method Nasal Cannula Weight: 241 lb 6.499 oz Body Mass Index (BMI) 41.1 Intake and Output for Last 24 Hours 09/12/20 09/13/20 09/14/20 23:59 23:59 23:59 Intake Total 770 / 770 720 / 720 Output Total 0 / 0 Balance 770 / 770 720 / 720 Laboratory Results 09/13/20 11:08: POC Glucose 80 09/13/20 16:39: POC Glucose 265 H 09/13/20 20:40: POC Glucose 255 H 09/14/20 05:15: Sodium 139, Potassium 4.2, Chloride 102, Carbon Dioxide 36.0 H, Anion Gap 1 L, BUN 29 H, Creatinine 0.97, Estim Creat Clear Calc 48.60, Est GFR (MDRD) Af Amer 74, Est GFR (MDRD) Non-Af 61, BUN/Creatinine Ratio 30.0 H, Glucose 73 L, Calcium 8.8, Triglycerides 79, Cholesterol 134, LDL Cholesterol 67, VLDL Cholesterol 16, HDL Cholesterol 51 09/14/20 05:15: WBC 8.1, RBC 4.58, Hgb 13.8, Hct 43.5, MCV 95.0, MCH 30.1, MCHC 31.7 L, RDW Std Deviation 51.3 H, RDW Coeff of Stephanie 14.8 H, Plt Count 271, MPV 10.6, Immature Gran % (Auto) 0.400, Neut % (Auto) 62.9, Lymph % (Auto) 28.1, [place] % (Auto) 7.4, Eos % (Auto) 1.1, Baso % (Auto) 0.1, Absolute Neuts (auto) 5.1, Absolute Lymphs (auto) 2.27, Nucleated RBC % 0, Platelet Estimate ADEQUATE, RBC Morphology NORM C+C 09/14/20 06:25: POC Glucose 108 Current Medications Acetaminophen (Tylenol) 650 mg PO Q6H PRN PRN PRN Reason: Pain Score 1-10/Temp > 100.7 F Last Admin: 09/10/20 22:13 Dose: 325 mg Documented by: Amiodarone HCl (Amiodarone 200 Mg Tablet) 200 mg PO DAILY [facility] Last Admin: 09/14/20 08:58 Dose: 200 mg Documented by: Apixaban (Apixaban 5 Mg Tablet) 5 mg PO BID [facility] Last Admin: 09/14/20 08:59 Dose: 5 mg Documented by: Atorvastatin Calcium (Lipitor) 20 mg PO QHS [facility] Last Admin: 09/13/20 21:08 Dose: 20 mg Documented by: Digoxin (Digoxin 125 Mcg Tablet) 125 mcg PO DAILY [facility] Last Admin: 09/14/20 08:58 Dose: 125 mcg Documented by: Diltiazem HCl (Diltiazem Cd 180 Mg Capsule) 360 mg PO DAILY [facility] Last Admin: 09/14/20 08:59 Dose: 360 mg Documented by: Guaifenesin (Guaifenesin Dm 10 Ml Udc) 10 ml PO Q6H PRN PRN PRN Reason: COUGH Last Admin: 09/07/20 19:49 Dose: 10 ml Documented by: Sodium Chloride () 1,000 mls @ 15 mls/hr IV .Q48H [facility] Last Admin: 09/13/20 05:44 Dose: Not Given Documented by: Insulin Human Lispro (Insulin Lispro 100 Unit/Ml Insuln.Pen) 0 unit SC ACHS [facility]; Protocol Last Admin: 09/14/20 11:19 Dose: 2 units Documented by: Ipratropium [place] (Ipratropium 0.5 Mg/2.5 Ml Solution) 0.5 mg INHALATION Q4H.RT [facility] Last Admin: 09/14/20 10:35 Dose: 0.5 mg Documented by: Metformin HCl (Metformin (Xr) 500 Mg Tablet) [facility] Last Admin: 09/14/20 08:58 Dose: 500 mg Documented by: Metoprolol Tartrate (Metoprolol Tartrate 25 Mg Tablet) 25 mg PO BID [facility] Last Admin: 09/14/20 08:59 Dose: 25 mg Documented by: Ondansetron HCl (Zofran) 4 mg IV Q8H PRN PRN PRN Reason: NAUSEA/VOMITING Prednisone (Prednisone 20 Mg Tablet) 30 mg PO DAILY@0800 [facility] Last Admin: 09/14/20 08:58 Dose: 30 mg Documented by: Senna/Docusate Sodium (Senokot-S, Shaye-Colace) 2 tablet PO BID PRN PRN PRN Reason: Constipation Sodium Chloride () 10 - 40 ml IV UD PRN PRN Reason: SALINE FLUSH Last Admin: 09/13/20 11:10 Dose: 10 ml Documented by: Zolpidem Tartrate (Ambien (Generic)) 5 mg PO QHS PRN PRN PRN Reason: INSOMNIA Discharge Activity: Return to Normal Activity, May Not Drive - for 2 weeks Call your doctor if you observe: Fever of 101 or Higher, Numbness or Tingling, Inability to urinate, Inability to have a bowel movement, Shortness of breath, Dizziness, Fainting spells, Swelling in the ankles, Chest pain, Prolonged hiccoughing, Increased palpitations (irregular heartbeat), Calf discomfort, Uncontrolled pain Home Medications: Medications to take at Discharge Albuterol Inhaler [Ventolin Hfa] 1 - 2 puff INHALATION Q4H PRN PRN #1 inhaler 03/10/15 Ascorbic Acid [Fruit C-500] 1,000 mg PO DAILY 09/04/20 Atorvastatin Calcium [Lipitor] 20 mg PO QHS 09/04/20 Metformin HCl [Metformin HCl ER] 500 mg PO DAILY 09/04/20 Apixaban [Eliquis] 5 mg PO BID #60 tab 09/08/20 Diltiazem CD [Cardizem CD] 360 mg PO DAILY 30 Days #60 cap 09/09/20 Prednisone 10 mg PO DAILY #30 tab 09/09/20 Amiodarone HCl [Cordarone] 200 mg PO DAILY #30 tab 09/12/20 Digoxin [Lanoxin] 125 mcg PO DAILY #30 tab 09/14/20 Metoprolol Tartrate [Lopressor (beta mynor)] 25 mg PO BID #60 tab 09/14/20 Following Prescriptions Were Given to Patient: Diltiazem CD [Cardizem CD] 360 mg PO DAILY 30 Days #60 cap Transmission Status: Received by [facility]/pharmacy #[id number] Amiodarone HCl [Cordarone] 200 mg PO DAILY #30 tab Transmission Status: Received by [facility]/pharmacy #[id number] Apixaban [Eliquis] 5 mg PO BID #60 tab Transmission Status: Received by [facility]/pharmacy #[id number] Digoxin [Lanoxin] 125 mcg PO DAILY #30 tab Transmission Status: Received by [facility] Metoprolol Tartrate [Lopressor (beta mynor)] 25 mg PO BID #60 tab Transmission Status: Received by [facility] Prednisone 10 mg PO DAILY #30 tab Transmission Status: Received by [facility]/pharmacy #[id number] Other Amb Orders: 30-Day Event Recorder [[facility]] Location: None Selected Primary Care Physician: Meena Garcia MD [Primary Care Provider] - Please follow up with your Primary Care Physician in: within 1-2 weeks Please Follow Up With: Adryan Arndt MD When: within 2 weeks Please Follow Up With: Cl Barrow MD When: within 2 weeks Please Follow Up With: Meena Garcia MD Medical Necessity - Tobacco Use Smoking Status: Former smoker Tobacco Use: Cigarettes Meaningful Use Info Meaningful Use Diagnoses (Choose all that apply): None applicable Inpatient E&M: [id number] [facility]
[2020-09-14 11:36] LABS: Bedside Glucose 221 mg/dL (70-110)
--- NOTE | 2020-09-14 11:45 | CASEMGMT ---
This RN CM to room to check in on discharge plan at this time. Pt states no further concerns/needs at this time. Pt states that she still planned on driving home at discharge and Mary CHAVES updated at this time, voices understanding and states will discuss with pt. Per nursing previously, pt was told she was not to drive home and needed a ride. Pt voices no further questions/concerns/needs at this time. Jacquelyn CHAVES CM
--- NOTE | 2020-09-14 15:16 | PHA.DC.MC ---
Pharmacy Service has performed discharge medication reconciliation and counseling for this patient. 1. AMIODARONE 200MG PO DAILY 2. PREDNISONE 30MG PO DAILY X 1 DAY, THEN 20MG X 3 DAYS, THEN 10MG X 3 DAYS 3. APIXABAN 5MG PO BID 4. DIGOXIN 125MCG PO DAILY 5. METOPROLOL TARTRATE 25MG PO BID The patient's discharge medication list was reviewed for discrepancies and discrepancies were resolved. Home Medications Albuterol Inhaler [Ventolin Hfa] 1 - 2 puff INHALATION Q4H PRN PRN #1 inhaler 03/10/15 Ascorbic Acid [Fruit C-500] 1,000 mg PO DAILY 09/04/20 Atorvastatin Calcium [Lipitor] 20 mg PO QHS 09/04/20 Metformin HCl [Metformin HCl ER] 500 mg PO DAILY 09/04/20 Apixaban [Eliquis] 5 mg PO BID #60 tab 09/08/20 Diltiazem CD [Cardizem CD] 360 mg PO DAILY 30 Days #60 cap 09/09/20 Prednisone 10 mg PO DAILY #30 tab 09/09/20 Amiodarone HCl [Cordarone] 200 mg PO DAILY #30 tab 09/12/20 Digoxin [Lanoxin] 125 mcg PO DAILY #30 tab 09/14/20 Metoprolol Tartrate [Lopressor (beta mynor)] 25 mg PO BID #60 tab 09/14/20 The patient was counseled on the following discharge medications and changes in medications for homegoing were reviewed. The Reason for Use, instructions for use, and potential side effects were reviewed for all new medications. The patient's questions regarding all of their medications were answered. The patient was able to verbally demonstrate an understanding of their discharge medications. Patient counseled by pharmacy messengerLuisa.
--- NOTE | 2020-09-15 15:21 | CASEMGMT ---
ANDIE ZAPATA Discharge Follow-Up Phone Call. Lace:???13 Strata: 3 Discharge Date: 09/14/20 Adm Dx:?? A-Flutter w/RVR, Mild Acute CHF. Attempted discharge f/u phone call. No answer and phone kept ringing--no VM came on to be able to leave message. Lindy DOCKERY RN CM
== END 2020-09-14 16:41 | disposition home or self-care (01) | DRG 308 ==
LOC: ED 16:00 → PCU 16:55
PROVIDERS: Internal Medicine; Nurse Practitioner Family; Physician Assistant; Admitting Provider Hospitalist; Emergency Provider Emergency Medicine; PCP Internal Medicine; Visit Provider Internal Medicine
DX: I48.92 Unspecified atrial flutter (principal); I50.33 Acute on chronic diastolic (congestive) heart failure; Z68.41 Body mass index [BMI] 40.0-44.9, adult; J44.1 Chronic obstructive pulmonary disease with (acute) exacerbation; I51.3 Intracardiac thrombosis, not elsewhere classified; I11.0 Hypertensive heart disease with heart failure; I48.91 Unspecified atrial fibrillation; E11.9 Type 2 diabetes mellitus without complications; E78.5 Hyperlipidemia, unspecified; G47.33 Obstructive sleep apnea (adult) (pediatric); E66.01 Morbid (severe) obesity due to excess calories; Z91.19 Patient's noncompliance with other medical treatment and regimen; Z79.84 Long term (current) use of oral hypoglycemic drugs; Z79.899 Other long term (current) drug therapy; Z87.891 Personal history of nicotine dependence
CPT/HCPCS: 36415; 71045; 80048; 80053; 80061; 82962; 83036; 83735; 83880; 84439; 84443; 84481; 84484; 85025; 85610; 93005; 93306; 93312; 93320; 93325; 94002; 94003; 94640; 94660; 97802; 97803; 99251; 99281; 99285; J7040; Q9957; A4216; C8929; G0463; J1940